=== PATIENT | female | born 1965 | race Caucasian/White ===

== ENCOUNTER 2018-07-18 10:53 | Emergency (ER) | payer MEDICARE, BC ==
--- NOTE | 2018-07-18 12:06 | UC ---
UC General HPI - HPI Summary HPI Summary: SORE THROAT X 5 DAYS AND WORSENING - History of Current Complaint Stated Complaint: RIGHT EAR CONCERN, SORE THROAT Time Seen by Provider: 07/18/18 11:48 Hx Obtained From: Patient Hx Last Menstrual Period: n/a Onset/Duration: Gradual Onset Timing: Constant Associated Signs & Symptoms: Negative: Fever - Allergy/Home Medications Allergies/Adverse Reactions: Allergies Allergy/AdvReac Type Severity Reaction Status Date / Time bee venom protein (honey bee) Allergy Anaphylatic Verified 07/18/18 11:55 Shock canagliflozin AdvReac weakness Verified 07/18/18 11:55 codeine AdvReac Agitation Verified 07/18/18 11:55 morphine AdvReac Agitation Verified 07/18/18 11:55 prednisone AdvReac Agitation Verified 07/18/18 11:55 Home Medications: Home Medications DULoxetine DR CAP* [Cymbalta CAP*] 60 mg PO QPM 07/18/18 [History Confirmed 08/23] Simvastatin [Zocor] 40 mg PO QPM 07/18/18 [History Confirmed 07/18/18] PMH/Surg Hx/FS Hx/Imm Hx Endocrine History: Diabetes, Thyroid Disease, Dyslipidemia Other History Of: Negative For: HIV, Hepatitis B, Hepatitis C, Anticoagulant Therapy - Surgical History Surgical History: Yes Surgery Procedure, Year, and Place: Herniorrhaphy 2009[facility] [place]; Complete Hysterectomy 2007 [place]; C-sections (1989 1987) [place]/ [place]; Thyroidectomy 1989 [place]. Cholecystectomy 01/2016 - Family History Known Family History: Positive: Cardiac Disease, Hypertension, Diabetes - Social History Occupation: Employed Full-time Lives: With Family Alcohol Use: None Substance Use Type: None Smoking Status (MU): Heavy Every Day Tobacco Smoker Type: Cigarettes Amount Used/How Often: 1 PPD Length of Time of Smoking/Using Tobacco: 19 Years Have You Smoked in the Last Year: Yes Household Exposure Type: Cigarettes - Immunization History Most Recent Influenza Vaccination: 7251-2139 Most Recent Tetanus Shot: unsure Vaccination Up to Date: Yes Review of Systems All Other Systems Reviewed And Are Negative: Yes Constitutional: Positive: Negative Skin: Positive: Negative Eyes: Positive: Negative ENT: Positive: Sore Throat Respiratory: Positive: Negative Cardiovascular: Positive: Negative Gastrointestinal: Positive: Negative Genitourinary: Positive: Negative Motor: Positive: Negative Neurovascular: Positive: Negative Musculoskeletal: Positive: Negative Neurological: Positive: Negative Psychological: Positive: Negative Is Patient Immunocompromised?: No Physical Exam Triage Information Reviewed: Yes Appearance: Well-Appearing Vital Signs Reviewed: Yes Eyes: Positive: Conjunctiva Clear ENT: Positive: Pharyngeal erythema, TMs normal, Muffled voice, Uvula midline - BUT RED AND MODERATE SWELLING. NO AIRWAY COMPROMISE.. Negative: Nasal congestion, Nasal drainage, Trismus Neck: Positive: Supple, Nontender, Enlarged Nodes @ - PERITONSILAR Respiratory: Positive: Lungs clear, Normal breath sounds Cardiovascular: Positive: RRR, No Murmur Abdomen Description: Positive: Nontender, No Organomegaly, Soft Bowel Sounds: Positive: Present Musculoskeletal: Positive: ROM Intact Neurological: Positive: Alert Psychological: Positive: Age Appropriate Behavior Skin Exam: Normal Diagnostics - Laboratory Diagnostic Studies Completed/Ordered: RAPID STREP=POSITIVE Course/Dx - Course Course Of Treatment: NO CONCERN FOR PERITONSILAR ABSCESS. UVULITIS ON EXAM PLUS STREP + THUS WILL TX WITH DECADRON X1 AND AUGMENTIN. - Differential Dx - Multi-Symptom Provider Diagnoses: UVULITIS. STREP THROAT Discharge - Sign-Out/Discharge Documenting (check all that apply): Patient Departure All imaging exams completed and their final reports reviewed: No Studies - Discharge Plan Condition: Stable Disposition: HOME Prescriptions: Amoxicillin/Clavulanate TAB* [Augmentin TAB 875*] 875 mg PO BID 10 Days #20 tab Patient Education Materials: Uvulitis (ED), Strep Throat (DC) Referrals: Franci Carr NP [Primary Care Provider] - Additional Instructions: RECHECK IN 3-4 DAYS OR SOONER IF WORSE. - Billing Disposition and Condition Condition: STABLE Disposition: Home
[2018-07-18 12:14] VITALS: BP 122/76
[2018-07-18] MEDS ORDERED: Dexamethasone IV* 4 MG/ML 1 ML (4 MG) PO ONE (12:16)
== END 2018-07-18 12:37 | disposition home or self-care (01) ==
LOC: UCCORT 10:53
DX: K12.2 Cellulitis and abscess of mouth (principal); J02.0 Streptococcal pharyngitis; Z88.8 Allergy status to other drugs, medicaments and biological substances; Z88.5 Allergy status to narcotic agent; E11.9 Type 2 diabetes mellitus without complications; E78.5 Hyperlipidemia, unspecified; F17.210 Nicotine dependence, cigarettes, uncomplicated
CPT/HCPCS: 87651; 99212; G0463; J1100

== ENCOUNTER 2018-10-01 11:59 | Emergency (ER) | payer BC, MEDICARE ==
--- OUTSIDE RECORDS SUMMARY | 2018-10-01 12:10 | XMS REPORT | Continuity of Care Document ---
:1965 External Reference #:[id number] Author Name Amy Underwood Care Team Providers Name Role Phone Angelica Thakkar PA Primary Care Physician Unavailable Payers Type Date Identification Numbers Payment Provider Subscriber Effective: 2018 Policy Number: [id number] Melodie Rodriguez PayID: [id number] [address] [place] [address] Advance Directives Description No Information Available Problems Description No Information Family History Description No Information Available Social History Type Date Description Comments Sex Unknown Marital Status Lives With Occupation Currently Working time study technologist urgent care nurse practitioner Tobacco Use Start: Unknown Heavy tobacco smoker (more than 10 cigarettes/day) Tobacco Use Start: Unknown Never Smoked Cigars Tobacco Use Start: Unknown Never Smoked A Pipe Smokeless Tobacco Never Used Smokeless Tobacco ETOH Use Denies alcohol use Tobacco Use Start: Unknown Heavy tobacco smoker (more than 10 cigarettes/day) Smoking Status Reviewed: 09/12/18 Heavy tobacco smoker (more than 10 cigarettes/day) Allergies, Adverse Reactions, Alerts Date Description Reaction Status Severity Comments 09/12/2018 Prednisone Active 09/12/2018 Morphine Active 09/12/2018 Codeine Active 09/12/2018 Invokana Active Medications Medication Date Status Form Strength Qnty SIG Indications Ordering Provider Diflucan 09/12/ Active Tablets 150mg 14tabs 1 tablet by J38.1 Andrew 2019 mouth daily Ruparelia x14 days , M.D. Meloxicam / Active Tablets 7.5mg Take 1 2 Unknown 0000 Tablets By Mouth Once A Day Benzonatate / Active Capsules 200mg Take One Unknown 0000 Capsule By Mouth Three Times A Day Buspirone HCL / Active Tablets 5mg Take 1 2 Unknown 0000 Tablets By Mouth Two To Three Times A Day as Needed For Anxiety Duloxetine HCL / Active Caps DR 60mg Take One Unknown 0000 Part Capsule By Mouth Every Day Bydureon / Active Pen 2mg Use 1 Unknown 0000 Injection Weekly Tazorac / Active Gel 0.05% Apply To Unknown 0000 Affected Area S Of Left Foot Nightly Levothyroxine / Active Tablets 150mcg Take One Unknown Sodium 0000 Tablet By Mouth Every Day Simvastatin / Active Tablets 40mg Take One Unknown 0000 Tablet By Mouth Every Day Synjardy XR / Active Tablets ER 5-1000mg Take One Unknown 0000 24HR Tablet By Mouth Every Day Immunizations Description No Information Available Vital Signs Date Vital Result Comment 09/12/2018 3:04pm Height 61 inches 5'1" Weight 217.00 lb BP Systolic Sitting 126 mmHg BP Diastolic Sitting 68 mmHg Respiratory Rate 16 /min Pain Level 5 BMI (Body Mass Index) 41.0 kg/m2 Results Description No Information Available Procedures Date Code Description Status 09/12/2018 13426 Fibroptic Laryngoscopy Completed Encounters Description No Information Available Plan of Treatment Future Appointment(s):09/26/2018 2:15 pm - Andrew Delaney M.D. at [facility] AT Xsngwdya34/07/2019 - Andrew Delaney M.D.R49.0 RdrqxxjelL33.1 Polyp of vocal cord and larynxNew Medication:Diflucan 150 mg - 1 tablet by mouth daily x14 daysComments:I'm going to treat her for 2 weeks with an antifungal, and reevaluate her at that time. If the polyp is still erythematous and edematous and redundant laryngoscopy with micro-biopsy and removal of polyp with general [id number] Dysphagia, unspecified
[2018-10-01 12:37] VITALS: BP 105/78
--- NOTE | 2018-10-01 13:27 | UC ---
Lower Extremity/Ankle HPI - HPI Summary HPI Summary: injured left foot and later ankle while playing with her [employer] dogs 4 days ago--has continued pain and throbbing in lateral ankle and foot - History of Current Complaint Chief Complaint: UCTrauma Stated Complaint: LEFT ANKLE INJURY Time Seen by Provider: 10/01/18 13:01 Hx Obtained From: Patient Hx Last Menstrual Period: n/a ?: No Onset/Duration: Sudden Onset, Lasting Days - 4, Still Present Pain Intensity: 9 Pain Scale Used: 0-10 Numeric Aggravating Factor(s): Standing, Ambulation Alleviating Factor(s): Rest, Elevation, OTC Meds Able to Bear Weight: Yes - with pain - Allergies/Home Medications Allergies/Adverse Reactions: Allergies Allergy/AdvReac Type Severity Reaction Status Date / Time bee venom protein (honey bee) Allergy Anaphylatic Verified 10/01/18 12:37 Shock canagliflozin AdvReac weakness Verified 10/01/18 12:37 codeine AdvReac Agitation Verified 10/01/18 12:37 morphine AdvReac Agitation Verified 10/01/18 12:37 prednisone AdvReac Agitation Verified 10/01/18 12:37 PMH/Surg Hx/FS Hx/Imm Hx Previously Healthy: No Endocrine History: Diabetes, Hypothyroidism, Dyslipidemia Psychological History: Depression Other History Of: Negative For: HIV, Hepatitis B, Hepatitis C, Anticoagulant Therapy - Surgical History Surgical History: Yes Surgery Procedure, Year, and Place: Hern[facility]rhaphy 2009[facility] [place]; Complete Hysterectomy 2007 [place]; C-sections (1989 1987) [place]/ [place]; Thyroidectomy 1989 [place]. Cholecystectomy 01/2016 - Family History Known Family History: Positive: Cardiac Disease, Hypertension, Diabetes - Social History Occupation: Employed Full-time Lives: With Family Alcohol Use: None Substance Use Type: None Smoking Status (MU): Heavy Every Day Tobacco Smoker Type: Cigarettes Amount Used/How Often: 1 PPD Length of Time of Smoking/Using Tobacco: 28 years Have You Smoked in the Last Year: Yes Household Exposure Type: Cigarettes Cessation Counseling: Counseled 3+Min - 10 Min - but patient refused NRT - Immunization History Most Recent Influenza Vaccination: 4675-4866 Most Recent Tetanus Shot: unsure Vaccination Up to Date: Yes Review of Systems All Other Systems Reviewed And Are Negative: Yes Constitutional: Positive: Negative Skin: Positive: Negative Eyes: Positive: Negative ENT: Positive: Negative Respiratory: Positive: Negative Cardiovascular: Positive: Negative Gastrointestinal: Positive: Negative Genitourinary: Positive: Negative Motor: Positive: Negative Neurovascular: Positive: Negative Musculoskeletal: Positive: Arthralgia - lateral left foot and ankle pain, Edema Neurological: Positive: Negative Psychological: Positive: Negative Is Patient Immunocompromised?: No Physical Exam Triage Information Reviewed: Yes Appearance: Well-Appearing, No Pain Distress, Obese Vital Signs: Initial Vital Signs Temp 98.6 F 10/01/18 12:33 Pulse 91 10/01/18 12:33 Resp 16 10/01/18 12:33 BP 105/78 10/01/18 12:33 Pulse Ox 99 10/01/18 12:33 Vital Signs Reviewed: Yes Eye Exam: Normal Eyes: Positive: Conjunctiva Clear ENT Exam: Normal ENT: Positive: Normal ENT inspection, Hearing grossly normal. Negative: Trismus , Muffled voice, Hoarse voice Dental Exam: Normal Neck exam: Normal Neck: Positive: Supple, Nontender Respiratory Exam: Normal Respiratory: Positive: Chest non-tender, No respiratory distress, No accessory muscle use Cardiovascular Exam: Normal Cardiovascular: Positive: RRR, Pulses Normal, Brisk Capillary Refill Musculoskeletal Exam: Other Musculoskeletal: Positive: Strength Limited @ - left foot, ROM Limited @ - left foot/ankle Neurological Exam: Normal Neurological: Positive: Alert, Muscle Tone Normal Psychological Exam: Normal Skin Exam: Normal Diagnostics - Radiology No standard instances Radiology Interpretation Completed By: Radiologist - no evidence of fracture Lower Extremity Course/Dx - Course Course Of Treatment: cam boot crutches rest ice elevation, tylenol, ibuprofen, follow with orthopedic MD , nicotine cesasation instructions provided - Differential Dx/Diagnosis Provider Diagnosis: Nicotine dependence with current use, Sprain of ankle, left Discharge - Sign-Out/Discharge Documenting (check all that apply): Patient Departure All imaging exams completed and their final reports reviewed: Yes - Discharge Plan Condition: Stable Disposition: HOME Patient Education Materials: Acetaminophen (By mouth), Ibuprofen (By mouth), How to Stop Smoking (ED), Ankle Sprain (ED), R.I.C.E. Treatment (ED) Forms: *Work Release Referrals: Shabbir Warren MD [Medical Doctor] - 4 Days - Billing Disposition and Condition Condition: STABLE Disposition: Home
== END 2018-10-01 14:06 | disposition home or self-care (01) ==
LOC: UCCORT 11:59
DX: S93.402A Sprain of unspecified ligament of left ankle, initial encounter (principal); I10 Essential (primary) hypertension; F17.210 Nicotine dependence, cigarettes, uncomplicated; E66.9 Obesity, unspecified; Z91.030 Bee allergy status; Z91.048 Other nonmedicinal substance allergy status; Z88.5 Allergy status to narcotic agent; X58.XXXA Exposure to other specified factors, initial encounter; Y93.89 Activity, other specified; Y92.9 Unspecified place or not applicable
CPT/HCPCS: 99213; G0463

== ENCOUNTER 2019-01-15 10:17 | Emergency (ER) | payer MEDICARE ==
--- NOTE | 2019-01-15 11:04 | UC ---
Respiratory Complaint HPI - HPI Summary HPI Summary: Patient is a 53 year old female, who present today to the urgent care with sinus congestion for past 2 weeks. She reports that she was initially thinking that it was her allergies but now she has double up cough productive of greenish mucus and her ears are also bothering her at this time. She denies any fevers, chest pain or shortness of breath. Postnasal drip positive Denies any abdominal pain , nausea or vomiting , diarrhea or constipation. - History of Current Complaint Stated Complaint: SINUS CONGESTION,COUGH Time Seen by Provider: 01/15/19 11:03 Hx Obtained From: Patient Hx Last Menstrual Period: n/a ?: No - Allergies/Home Medications Allergies/Adverse Reactions: Allergies Allergy/AdvReac Type Severity Reaction Status Date / Time bee venom protein (honey bee) Allergy Anaphylatic Verified 01/15/19 11:08 Shock canagliflozin AdvReac weakness Verified 01/15/19 11:08 codeine AdvReac Agitation Verified 01/15/19 11:08 morphine AdvReac Agitation Verified 01/15/19 11:08 prednisone AdvReac Agitation Verified 01/15/19 11:08 PMH/Surg Hx/FS Hx/Imm Hx - Additional Past Medical History Additional PMH: Past medical history: hypertension, depression, shingles, diabetes, thyroid cancer, MRSA Past surgical history: Thyroid surgery, hysterectomy Social history: Smoker, no alcohol or drug use. She works for [employer] at [employer]. Family history: Noncontributory Previously Healthy: Yes Other History Of: Negative For: HIV, Hepatitis B, Hepatitis C, Anticoagulant Therapy - Surgical History Surgical History: Yes Surgery Procedure, Year, and Place: [place] [facility] [place]; Complete Hysterectomy 2007 [place]; C-sections (1989 1987) [place]/ [place]; Thyroidectomy 1989 [place]. Cholecystectomy 01/2016 - Family History Known Family History: Positive: Cardiac Disease, Hypertension, Diabetes - Social History Alcohol Use: None Substance Use Type: None Smoking Status (MU): Heavy Every Day Tobacco Smoker Type: Cigarettes Amount Used/How Often: 1 PPD Length of Time of Smoking/Using Tobacco: 28 years Have You Smoked in the Last Year: Yes Household Exposure Type: Cigarettes - Immunization History Most Recent Influenza Vaccination: [id number] Most Recent Tetanus Shot: unsure Vaccination Up to Date: Yes Review of Systems All Other Systems Reviewed And Are Negative: Yes Constitutional: Positive: Negative Skin: Positive: Negative Eyes: Positive: Negative ENT: Positive: Ear Ache, Nasal Discharge, Sinus Congestion, Sinus Pain/ Tenderness Respiratory: Positive: Cough - Productive of greenish sputum. Negative: Shortness Of Breath Cardiovascular: Positive: Negative. Negative: Chest Pain Gastrointestinal: Positive: Negative Genitourinary: Positive: Negative Motor: Positive: Negative Neurovascular: Positive: Negative Musculoskeletal: Positive: Negative Neurological: Positive: Negative Psychological: Positive: Negative Is Patient Immunocompromised?: No Physical Exam - Summary Physical Exam Summary: Physical Exam: Const: Appears well. No signs of apparent distress present. Alert and oriented x 3. Musculo: Walks with a normal gait. Head/Face: Atraumatic, normocephalic on inspection. Eyes: EOMI and PERRLA in both eyes. Conjunctivae clear. No discharge noted ENT: Hearing normal, red TM erythematous Cobblestoning noted in the posterior pharyngeal wall with mild pharyngeal erythema and no exudates. Uvula is midline No cervical or submandibular lymphadenopathy noted. Respiratory: Respirations are unlabored. Lungs clear to auscultation bilaterally, no wheezing , rhonchi or rales noted . CVS: Regular rate and Rhythm, S1S2 normal , no murmurs identified. Extremities: Peripheral circulation is grossly normal. Pulses 2+ Abdomen : Soft non tender , nondistended , Bowel sounds present . No guarding , rebound tenderness or rigidity noted. Skin: No lesions or rash located on the upper extremities or on the lower extremities. Neuro: Cranial nerves II to XII intact, motor and sensory intact. DTR Intact bilaterally. Mood is normal. Affect is normal. Triage Information Reviewed: Yes Vital Signs Reviewed: Yes Respiratory Course/Dx - Course Course Of Treatment: During the visit today, we discussed the findings and further plan. I will prescribe the medication to the pharmacy . Patient expressed understanding . - Differential Dx/Diagnosis Provider Diagnosis: Sinusitis, Left otitis media Discharge - Sign-Out/Discharge Documenting (check all that apply): Patient Departure All imaging exams completed and their final reports reviewed: No Studies - Discharge Plan Condition: Stable Disposition: HOME Prescriptions: Amoxicillin/Clavulanate TAB* [Augmentin TAB 875*] 875 mg PO BID 14 Days #28 tab Patient Education Materials: Sinusitis (ED) Referrals: Lewis Benavidez MD [Primary Care Provider] - 1 Week Additional Instructions: Please start taking the medication as prescribed to the pharmacy . Follow up with your primary care doctor in 1 week Patients blood pressure slightly high(prehypertensive range) in Urgent care today , plan follow up with PCP for better control Return to Urgent care / ER if symptoms get worse. - Billing Disposition and Condition Condition: STABLE Disposition: Home
[2019-01-15 11:08] VITALS: BP 129/75
== END 2019-01-15 11:28 | disposition home or self-care (01) ==
LOC: UCCORT 10:17
DX: J32.9 Chronic sinusitis, unspecified (principal); H66.92 Otitis media, unspecified, left ear; I10 Essential (primary) hypertension; E11.9 Type 2 diabetes mellitus without complications; Z85.850 Personal history of malignant neoplasm of thyroid; Z86.14 Personal history of Methicillin resistant Staphylococcus aureus infection; F17.210 Nicotine dependence, cigarettes, uncomplicated
CPT/HCPCS: 99212; G0463

== ENCOUNTER 2019-01-30 09:16 | Emergency (ER) | payer MEDICARE ==
[2019-01-30 10:34] VITALS: BP 112/63
--- NOTE | 2019-01-30 10:44 | UC ---
Knee Pain HPI - HPI Summary HPI Summary: 53 yo female with medial right knee pain x 2 weeks knee swollen hurts to bend knee sonam hx knee DJD - History of Current Complaint Chief Complaint: UCLowerExtremity Stated Complaint: RIGHT KNEE PAIN/SWELLING Time Seen by Provider: 01/30/19 10:34 Hx Obtained From: Patient Hx Last Menstrual Period: n/a Onset/Duration: Gradual Onset Severity Initially: Mild Severity Currently: Severe Pain Intensity: 9 Pain Scale Used: 0-10 Numeric Character: Sharp, Aching Aggravating Factor(s): Movement, Weight Bearing Alleviating Factor(s): Rest Associated Signs And Symptoms: Positive: Swelling Able to Bear Weight: Yes Legs: 1 - tender medial joint line - Allergies/Home Medications Allergies/Adverse Reactions: Allergies Allergy/AdvReac Type Severity Reaction Status Date / Time bee venom protein (honey bee) Allergy Anaphylatic Verified 01/30/19 10:26 Shock canagliflozin AdvReac weakness Verified 01/30/19 10:26 codeine AdvReac Agitation Verified 01/30/19 10:26 morphine AdvReac Agitation Verified 01/30/19 10:26 prednisone AdvReac Agitation Verified 01/30/19 10:26 PMH/Surg Hx/FS Hx/Imm Hx Previously Healthy: Yes Endocrine History: Diabetes Cardiovascular History: Hypertension Other History Of: Negative For: HIV, Hepatitis B, Hepatitis C, Anticoagulant Therapy - Surgical History Surgical History: Yes Surgery Procedure, Year, and Place: Herniorrhaphy 2009[facility] [place]; Complete Hysterectomy 2007 [place]; C-sections (1989 1987) [place]/ [place]; Thyroidectomy 1989 [place]. Cholecystectomy 01/2016 - Family History Known Family History: Positive: Cardiac Disease, Hypertension, Diabetes - Social History Alcohol Use: None Substance Use Type: None Smoking Status (MU): Heavy Every Day Tobacco Smoker Type: Cigarettes Amount Used/How Often: 1 PPD Length of Time of Smoking/Using Tobacco: 28 years Have You Smoked in the Last Year: Yes Household Exposure Type: Cigarettes - Immunization History Most Recent Influenza Vaccination: 8321-9885 Most Recent Tetanus Shot: unsure Vaccination Up to Date: Yes Review of Systems All Other Systems Reviewed And Are Negative: Yes Constitutional: Positive: Negative Skin: Positive: Negative Eyes: Positive: Negative ENT: Positive: Negative Respiratory: Positive: Negative Cardiovascular: Positive: Negative Gastrointestinal: Positive: Negative Genitourinary: Positive: Negative Motor: Positive: Negative Neurovascular: Positive: Negative Musculoskeletal: Positive: Arthralgia - right knee Neurological: Positive: Negative Psychological: Positive: Negative Physical Exam Triage Information Reviewed: Yes Appearance: Well-Appearing, No Pain Distress, Well-Nourished, Other: - BMI 41 Vital Signs: Initial Vital Signs Temp 98.1 F 01/30/19 10:28 Pulse 92 01/30/19 10:28 Resp 18 01/30/19 10:28 BP 112/63 01/30/19 10:28 Pulse Ox 96 01/30/19 10:28 Vital Signs Reviewed: Yes Eyes: Positive: Conjunctiva Clear ENT: Positive: Hearing grossly normal. Negative: Nasal congestion, Nasal drainage, Tonsillar swelling, Tonsillar exudate, Muffled voice, Hoarse voice Neck: Positive: Supple Respiratory: Positive: Normal breath sounds, No respiratory distress, No accessory muscle use, Respiratory distress Cardiovascular: Positive: RRR, No Murmur Musculoskeletal: Positive: Other: - unable to fully extend right knee, effusion , tender medial joint line Neurological: Positive: Alert, Other: - distal n/v/i Psychological Exam: Normal Skin Exam: Normal Diagnostics - Radiology No standard instances Radiology Interpretation Completed By: Radiologist Summary of Radiographic Findings: DJD Knee Pain Course/Dx - Differential Dx/Diagnosis Provider Diagnosis: Tear of medial meniscus of right knee, Right knee DJD Discharge - Sign-Out/Discharge Documenting (check all that apply): Patient Departure All imaging exams completed and their final reports reviewed: Yes - Discharge Plan Condition: Stable Disposition: HOME Patient Education Materials: R.I.C.E. Treatment (ED), Knee Immobilizer (ED), Meniscus Tear (ED) Forms: *Work Release Referrals: Shabbir Warren MD [Medical Doctor] - As Soon As Possible - Billing Disposition and Condition Condition: STABLE Disposition: Home
== END 2019-01-30 11:57 | disposition home or self-care (01) ==
LOC: UCCORT 09:16
DX: S83.241A Other tear of medial meniscus, current injury, right knee, initial encounter (principal); M17.11 Unilateral primary osteoarthritis, right knee; E11.9 Type 2 diabetes mellitus without complications; I10 Essential (primary) hypertension; F17.210 Nicotine dependence, cigarettes, uncomplicated; Z88.5 Allergy status to narcotic agent; Z88.8 Allergy status to other drugs, medicaments and biological substances; X58.XXXA Exposure to other specified factors, initial encounter
CPT/HCPCS: 99213; G0463

== ENCOUNTER 2019-03-30 07:08 | Inpatient (IN) | payer MEDICARE ==
--- NOTE | 2019-03-17 20:10 | HP ---
AMENDED REPORT NOW INCLUDES DESIGNATED COSIGNER HISTORY AND PHYSICAL: DATE OF ADMISSION/SURGERY: 03/30/19 DATE OF OFFICE VISIT: 03/17/19 ATTENDING SURGEON: Aliza Shea MD.* (DICTATED BY YOON POLLOCK) PROCEDURE: Right total knee arthroplasty. CHIEF COMPLAINT: Right knee pain. HISTORY OF PRESENT ILLNESS: Ms. Dahl is a 53-year-old female with right knee pain that has been increasing over the last 10 years. The patient reports that she has developed 9/10 daily aching pain in the prepatellar region and medial joint line of her right knee. Her pain is increased with walking even 1 block. She has difficulty stair climbing and prolonged ambulation. In the past, she has tried antiinflammatories, pain medications, brace wear, physical therapy, and steroid injections. The patient reports that her quality of life is low at this point and she would like to proceed with surgery. She does use a cane to ambulate. PAST MEDICAL HISTORY: 1. Hypercholesterolemia. 2. Depression. 3. Anxiety. 4. Type 2 diabetes. PAST SURGICAL HISTORY: 1. Hernia repair x3. 2. Cholecystectomy. 3. Thyroidectomy. 4. Two C-sections. MEDICATIONS: 1. Famotidine 40 mg q.8 hours. 2. Meloxicam 7.5 mg 1 to 2 tabs p.o. once a day. 3. Buspirone HCl 5 mg 1 to 2 tabs p.o. 2 to 3 times a day as needed for anxiety. 4. Duloxetine HCl 60 mg 1 p.o. daily. 5. Bydureon 2 mg use 1 injection weekly. 6. Tazorac 0.05% apply to affected area of left foot nightly. 7. Levothyroxine sodium 150 mcg take 1 tablet p.o. daily. 8. Simvastatin 40 mg 1 p.o. daily. 9. Synjardy XR 01/1000 mg 1 p.o. daily. ALLERGIES: PREDNISONE, MORPHINE, CODEINE, and INVOKANA. FAMILY HISTORY: Positive for diabetes, cardiovascular disease, hypertension, stroke, and rheumatoid arthritis. SOCIAL HISTORY: The patient lives at home with her spouse. She is disabled, but she works part-time at [employer]. She is a smoker. She smokes 1 pack per day x24 years. She denies recreational drugs or alcohol use. She is normally active with swimming and kayaking. She is ambidextrous. REVIEW OF SYSTEMS: General: Negative for fevers, chills, night sweats, unexplained weight loss or gain. No known anesthesia problems. HEENT: Negative for headache, lightheadedness, syncopal episodes, visual changes. Integumentary: Positive for psoriasis on her foot. Negative for abrasions, lesions, or open wounds. Cardiothoracic: Negative for hypertension, chest pain , palpitations, edema. Respiratory: Negative for shortness of breath with exertion, chronic cough, wheezing. GI: Negative for nausea, vomiting, diarrhea , constipation, GERD. : Negative for nocturia, urinary frequency, urgency, history of UTIs, kidney problems. Musculoskeletal: Positive for right knee pain. Positive for herniated disk at C6 and C7. Negative for chronic or intermittent back pain or history of fractures. Neurologic: Positive for anxiety and depression. Negative for paresthesias, numbness, history of seizure , stroke, or poor balance. Endocrine: Positive for diabetes. Positive for thyroid issues. Hematologic: Negative for easy bruising, anemia, bleeding disorders, or history of DVT. ID: Negative for MRSA, hep C, HIV. PHYSICAL EXAMINATION GENERAL: Well-developed, well-nourished 53-year-old female, in no acute distress. Gait is antalgic. Balance is decreased single leg stance. VITAL SIGNS: Height is 61 inches, weight 220 pounds. BP is 122/68, respiratory is 18, temperature is 97.6, pain level is 5. BMI is 41.6. HEENT: Normocephalic, atraumatic. PERRLA. Extraocular movements intact. Throat is clear. NECK: Supple. No palpable lymph nodes. PULMONARY: Lungs are clear to auscultation. No wheezes, rales, or rhonchi. CARDIO: Regular rate and rhythm. S1 and S2 normal. No murmurs, rubs, or gallops. No edema. ABDOMEN: Positive bowel sounds. Soft, nontender. NEUROLOGIC: A and O x3. Cranial nerves II through XII intact. Sensation is intact to light touch. MUSCULOSKELETAL: Right lower extremity, the patient's skin is intact. No abrasions or open wounds. No palpable masses or lymph nodes. Moderate effusion at the knee joint with tenderness along the medial and lateral joint line. She has 10 to 100 degrees of flexion today with extreme pain. She has extensive patellofemoral crepitus with range of motion. No varus or valgus instability. Distally no edema, varicosities, or hyperreflexia. She has 5/5 ankle dorsiflexion and plantarflexion strength. Full sensation to light touch in all nerve distributions and 2+ palpable DP pulse. DIAGNOSTIC STUDIES: Multiple views of the patient's right knee showed severe endstage arthritis with [id number]-[id number] contact in the patellofemoral compartment. There is tricompartmental joint space narrowing, osteophyte formation, subchondral sclerosis. IMPRESSION: Severe right knee osteoarthritis. PLAN: The patient is scheduled to undergo a right total knee arthroplasty with Dr. Shea on 03/30/19. Dr. Shea discussed the risks as well as the benefits and the procedure with the patient and she elected to proceed. She will return to the office 10 days postop for followup and suture removal. She stated that she would like to go to rehab in [place] following discharge from this hospital and at that time she will be I-STOP'd and given a prescription for Percocet for postoperative pain management. YOON SHAH [id number]/[facility] #: [id number] MTDKareen
[~2019-03-30 07:08] MED LIST: Acetaminophen TAB* 325 MG PO ONE; Buffered Lidocaine 1% SYRIN* 1 ML/SYRINGE INTRADERM ONE; DiMENhydriNATE IV* 50 MG/ML VIAL IV PUSH PRN; Famotidine IV* 10 MG/ML 2 ML (20 mg) IV ONE; Gabapentin CAP(*) 300 MG PO ONE; HYDROmorphone INJ1* 1 MG/ML SYRINGE IV PRN; Lactated Ringers 1000 ML Bag* 1,000 ML IV SCH; Levalbuterol 0.63MG/3ML NEB* UNIT OF USE INH ONE; Naloxone* 0.4 MG/ML 1 ML VIAL IV PRN; Ondansetron ODT TAB* 4 MG PO ONE; PROCHLORPERAZINE INJ 5 MG/ML 2 ML VIAL IV PRN; Scopolamine 1.5 mg* PATCH TRANSDERM PRN; Tranexamic Acid 1,000 MG in NS 0.9% 50 ML* (outpatient use) IV SCH; celeCOXIB CAP* 200 MG PO ONE; fentaNYL* 50 MCG/ML 2 ML VIAL (100 MCG VIAL) IV PRN
--- OUTSIDE RECORDS SUMMARY | 2019-03-30 07:11 | XMS REPORT | Continuity of Care Document ---
:1965 External Reference #:[id number] Author Name YOON Garcia Address [address], [place] [address] Care Team Providers Name Role Phone Lewis Benavidez MD Primary Care Physician Unavailable Payers Date Identification Numbers Payment Provider Subscriber Effective: 2018 Policy Number: [id number] [facility] Melodie Dahl PayID: [id number] [address] [place] [address] Problems Active Problems Provider Date Localized, primary osteoarthritis Aliza Shea M.D. Onset: 02/13/2019 Family History Date Family Member(s) Observation Comments General No Current Problems Social History Type Date Description Comments Sex Unknown Marital Status Lives With Occupation Currently Working automotive parts counter assistant certified caregiver Tobacco Use Start: Unknown Heavy tobacco smoker (more than 10 cigarettes/day) Tobacco Use Start: Unknown Never Smoked Cigars Tobacco Use Start: Unknown Never Smoked A Pipe Smokeless Tobacco Never Used Smokeless Tobacco ETOH Use Denies alcohol use Tobacco Use Start: Unknown Heavy tobacco smoker (more than 10 cigarettes/day) Recreational Drug Use Denies Drug Use Smoking Status Reviewed: 02/13/19 Heavy tobacco smoker (more than 10 cigarettes/day) Allergies, Adverse Reactions, Alerts Active Allergies Reaction Severity Comments Date Prednisone 09/12/2018 Morphine 09/12/2018 Codeine 09/12/2018 Invokana 09/12/2018 Medications Active Medications SIG Qnty Indications Ordering Date Provider Famotidine 40 mg q12H 60tabs R13.10 Andrew 09/26/2018 40mg Tablets Bee Delaney Meloxicam Take 1- 2 Tablets Unknown 7.5mg Tablets By Mouth Once A Day Buspirone HCL Take 1 -2 Tablets Unknown 5mg Tablets By Mouth Two To Three Times A Day as Needed For Anxiety Duloxetine HCL Take One Capsule Unknown 60mg Caps By Mouth Every DR Part Day Bydureon Use 1 Injection Unknown 2mg Pen Weekly Tazorac Apply To Affected Unknown 0.05% Gel Area S Of Left Foot Nightly Levothyroxine Sodium Take One Tablet Unknown By Mouth Every 150mcg Tablets Day Simvastatin Take One Tablet Unknown 40mg Tablets By Mouth Every Day Synjardy XR Take One Tablet Unknown 5-1000mg By Mouth Every Tablets ER 24HR Day History Medications Diflucan 1 tablet by 14tabs J38.1 Andrew 09/12/2018 - 150mg mouth daily x14 Bee Delaney 01/17/2019 Tablets days Benzonatate Take One Capsule Unknown - 200mg By Mouth Three 01/11/2019 Capsules Times A Day as needed Vital Signs Date Vital Result Comment 02/13/2019 2:18pm Height 61 inches Weight 218.00 lb Heart Rate 95 /min BP Systolic 118 mmHg BP Diastolic 58 mmHg Body Temperature 97.8 F Pain Level 9 BMI (Body Mass Index) 41.2 kg/m2 01/31/2019 10:46am Height 61 inches 5'1" Weight 219.00 lb BP Systolic Sitting 118 mmHg BP Diastolic Sitting 64 mmHg Respiratory Rate 16 /min Pain Level 9 with standing BMI (Body Mass Index) 41.4 kg/m2 09/26/2018 2:23pm Height 61 inches 5'1" Heart Rate 96 /min BP Systolic Sitting 128 mmHg BP Diastolic Sitting 82 mmHg Respiratory Rate 16 /min Pain Level 5 O2 % BldC Oximetry 95 % 09/12/2018 3:04pm Height 61 inches 5'1" Weight 217.00 lb BP Systolic Sitting 126 mmHg BP Diastolic Sitting 68 mmHg Respiratory Rate 16 /min Pain Level 5 BMI (Body Mass Index) 41.0 kg/m2 Results Test Date Facility Test Result H/L Range Note Xray 02/13/2019 [facility] Knee Right 1-2 VWS <pending> [address] [place] [address] [phone] Procedures Date Code Description Status 09/26/2018 25551 Fibroptic Laryngoscopy Completed 09/12/2018 04473 Fibroptic Laryngoscopy Completed Encounters Type Date Location Provider Dx Diagnosis Office Visit 02/13/2019 [facility] Aliza Shea, M17.11 Unilateral primary 2:00p [facility] osteoarthritis, right knee M25.461 Effusion, right knee M25.561 Pain in right knee Office Visit 01/31/2019 Orthopedic Shabbir Saez M17.11 Unilateral primary 10:30a [facility] Matias Warren MD osteoarthritis, AT [place] right knee Office Visit 09/26/2018 [facility] R49.0 Dysphonia 2:15p [facility]Colten M.D. R13.10 Dysphagia, unspecified Office Visit 09/12/2018 2:45p [facility] R49.0 [facility] of vocal cord and larynx R13.10 Dysphagia, unspecified Plan of Treatment Future Appointment(s):03/30/2019 8:00 am - Fredi Albrecht PA-C at [facility]03/30/2019 8:00 am - JAMIA Gasca at [facility]03/30/2019 8:00 am - Aliza Shea M.D. at [facility]03/17/2019 2:30 pm - Aliza Shea M.D. at [facility]02/13/2019 - Aliza Shea M.D.M17.11 Unilateral primary osteoarthritis, right kneeFollow up:Follow up: 7-10 days before napvjmzP32.461 Effusion, right kneeM25.561 Pain in right knee
--- OUTSIDE RECORDS SUMMARY | 2019-03-30 07:11 | XMS REPORT | Continuity of Care Document ---
:1965 External Reference #:[id number] Author Name Lesia Salgado Care Team Providers Name Role Phone Lewis Benavidze MD Primary Care Physician Unavailable Payers Date Identification Numbers Payment Provider Subscriber Effective: 2018 Policy Number: [id number] [employer] Melodie Dahl PayID: [id number] [address] [place] [address] Problems Active Problems Provider Date Localized, primary osteoarthritis Aliza Shea M.D. 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 Tobacco Use Start: Unknown Heavy tobacco smoker (more than 10 cigarettes/day) Tobacco Use Start: Unknown Never Smoked Cigars Tobacco Use Start: Unknown Never Smoked A Pipe Smokeless Tobacco Never Used Smokeless Tobacco ETOH Use Denies alcohol use Tobacco Use Start: Unknown Heavy tobacco smoker (more than 10 cigarettes/day) Recreational Drug Use Denies Drug Use Smoking Status Reviewed: 03/17/19 Heavy tobacco smoker (more than 10 cigarettes/day) [...] Day History Medications Diflucan 1 tablet by ondina J38.1 Andrew 09/12/2018 - 150mg mouth daily x14 Bee Delaney 01/17/2019 Tablets days Benzonatate Take One Capsule Unknown - 200mg By Mouth Three 01/11/2019 Capsules Times A Day as needed Vital Signs Date Vital Result Comment 03/17/2019 2:37pm Height 61 inches 5'1" Weight 220.00 lb BP Systolic 122 mmHg BP Diastolic 68 mmHg Respiratory Rate 18 /min Body Temperature 97.6 F Pain Level 5 BMI (Body Mass Index) 41.6 kg/m2 02/13/2019 2:18pm Height 61 inches Weight 218.00 [...] Test Result H/L Range Note Xray 02/13/2019 [facility] Knee Right 1-2 VWS <pending> [address] [place], [place] [id number] [phone] Procedures Date Code Description Status 09/26/2018 35573 Fibroptic Laryngoscopy Completed 09/12/2018 80279 Fibroptic Laryngoscopy Completed Encounters Type Date Location Provider Dx Diagnosis Office Visit 02/13/2019 Orthopedic Aliza Shea M17.11 Unilateral primary 2:00p [facility] osteoarthritis, right knee M25.461 Effusion, right knee M25.561 Pain in right knee Office Visit 01/31/2019 Orthopedic Shabbir Saez M17.11 Unilateral primary 10:30a [facility] Matias Warren MD osteoarthritis, AT [place] right knee Office Visit 09/26/2018 [facility] R49.0 Dysphonia 2:15p [facility] Dysphagia, unspecified Office Visit 09/12/2018 2:45p [facility] Delaney R49.0 [facility] J[facility].1 Polyp of vocal cord and larynx R13.10 Dysphagia, unspecified Plan of Treatment Future Appointment(s):04/10/2019 10:15 am - Aliza Shea M.D. at [facility]03/30/2019 10:00 am - Fredi Albrecht PA-C at [facility]03/30/2019 10:00 am - JAMIA Gasca at [facility]03/30/2019 10:00 am - Aliza Shea M.D. at [facility]03/17/2019 - Aliza Shea M.D.M17.11 Unilateral primary osteoarthritis, right kneeFollow up:10-14 days post-opM25.461 Effusion, right kneeM25.561 Pain in right knee
[2019-03-30] MEDS ORDERED: Ondansetron ODT TAB* 4 MG ONE (07:37)
[2019-03-30] MEDS ORDERED: Buffered Lidocaine 1% SYRIN* 1 ML/SYRINGE INTRADERM ONE (07:38)
[2019-03-30] MEDS ORDERED: celeCOXIB CAP* 200 MG ONE (07:38)
[2019-03-30] MEDS ORDERED: ceFAZolin 2 GM in NS PREMIX(*) 2 GM/100 ML BAG IVPB ONE (07:38)
[2019-03-30] MEDS ORDERED: Famotidine IV* 10 MG/ML 2 ML (20 mg) ONE (07:38)
[2019-03-30] MEDS ORDERED: Levalbuterol 0.63MG/3ML NEB* UNIT OF USE INH ONE (07:38)
[2019-03-30] MEDS ORDERED: Acetaminophen TAB* 325 MG ONE (07:38)
[2019-03-30] MEDS ORDERED: Gabapentin CAP(*) 400 MG PO ONE (07:52)
[2019-03-30] MEDS ORDERED: Gabapentin CAP(*) 300 MG ONE (07:53)
[2019-03-30] MEDS ORDERED: fentaNYL* 50 MCG/ML 2 ML VIAL (100 MCG VIAL) ONE (08:12)
[2019-03-30] MEDS ORDERED: KETAMINE HCL* 50 MG/ML 10 ML VIAL ONE (08:13)
[2019-03-30] MEDS ORDERED: Midazolam* 1 MG/ML 5 ML VIAL (5 MG) ONE ×2 (08:13→08:39)
[2019-03-30] MEDS ORDERED: Mineral Oil Sterile, TOPICAL* 25 ML BTL ONE (09:18)
[2019-03-30] MEDS ORDERED: ROPIVACAINE 5 MG/ML 30 ML BTL (0.5%) ONE (09:19)
[2019-03-30] MEDS ORDERED: Insulin REGULAR(*) 1 UNITS UNIT ONE (10:59)
[2019-03-30] MEDS ORDERED: Lidocaine 2% PF * 5 ML VIAL ONE (12:47)
[2019-03-30] MEDS ORDERED: Phenylephrine 10 MG/ML VIAL* 1 ML VIAL ONE (12:47)
[2019-03-30] MEDS ORDERED: Bupivacaine 0.5% SDV PF* 30ML VIAL ONE (12:47)
[2019-03-30] MEDS ORDERED: Bupivacaine 0.25% EPI 200,000* 30 ML SDV ONE (12:47)
[2019-03-30] MEDS ORDERED: oxyCODONE TAB* 5 MG TAB PO PRN (13:05)
[2019-03-30] MEDS ORDERED: Acetaminophen TAB* 325 MG PO PRN ×2 (13:05→14:33)
[2019-03-30] MEDS ORDERED: Magnesium Hydroxide LIQ* 30 ML UDC PO PRN (13:05)
[2019-03-30] MEDS ORDERED: Polyethylene Glycol 3350* 17 GM PACKET PO PRN (13:05)
[2019-03-30] MEDS ORDERED: oxyCODONE/Acetamin 5/325 MG* TAB PO PRN ×2 (13:05)
[2019-03-30] MEDS ORDERED: diPHENhydraMINE IV* 50 MG/ML 1 ml VIAL (BENADRYL) IV PRN (13:05)
[2019-03-30] MEDS ORDERED: Morphine 4 MG/ML VIAL (1 ml) 4 MG/ML VIAL IV PRN ×2 (13:05→14:33)
[2019-03-30] MEDS ORDERED: Bisacodyl SUPP* 10 MG SUPP PR PRN (13:05)
[2019-03-30] MEDS ORDERED: Dextrose 50% Syringe 50 ML* 25 GM/50 ML SYRINGE IV PUSH PRN (14:27)
[2019-03-30] MEDS: Lactated Ringers 1000 ML Bag* 1,000 ML IV SCH (14:35)
[2019-03-30] MEDS ORDERED: Dextrose 50% VIAL 50 ml IV PUSH PRN (14:42)
--- NOTE | 2019-03-30 14:56 | PN ---
Progress Note - Progress Note Date of Service: 03/30/19 Note: Patient seen at bedside,feeling well, just back from PACU s/p Right total knee arthroplasty. She denies pain, block still working. Has flicker of motion of the Right great toe, still unable to dorsiflex the right ankle. Has sensation to light touch. toes and dorsal foot. Dressing dry. 2+ pedal pulse.
[2019-03-30] MEDS ORDERED: EMPAGLIFLOZIN PO SCH (17:00)
[2019-03-30] MEDS ORDERED: METFORMIN HCL PO SCH (17:00)
[2019-03-30] MEDS: oxyCODONE/Acetamin 5/325 MG* TAB PO PRN (17:01)
[2019-03-30] MEDS: Insulin LISPRO* 1 UNITS UNIT SUBCUT SCH ×2 (17:59→21:06)
[2019-03-30] MEDS: ceFAZolin 1 GM ADVAN(*) 1 GM in NS 0.9% 50 ML* 50 ML IVPB SCH (17:59)
[2019-03-30] MEDS: Ondansetron INJ* 2 MG/ML VIAL IV PRN (18:00)
--- NOTE | 2019-03-30 18:29 | OP ---
Operative Report - Blank - Operative Report Date of Operation: 03/30/19 Note: ADEN PEDERSEN 1965 Date of Surgery: 03/30/19 Aliza Shea MD Meter Reader: Raymond NETTLES did help throughout the procedure with preparation of the knee, wound retraction, manipulation of the knee, and wound closure. Anesthesiologist: Kuldip Faith MD Anesthesia Type: Spinal Preoperative Diagnosis: Right severe degenerative osteoarthritis of the knee Postoperative Diagnosis: As above Procedure Performed: Right Total Knee Arthroplasty with Navio System Tourniquet time: 67 minutes Complications: None Specimen: Bone and cartilage from the right knee joint sent to pathology. Hardware Used: Cemented [employer] total knee hardware was used - For the femur a size 4 right narrow oxinium legion posterior stabilized femoral component, for the tibia a size 3 right kobi II tibial baseplate, for the insert a size 11 mm 3-4 posterior stabilized articular polyethylene insert, and for the patella a size 29 3-peg all poly patella. Brief History/Indication: ADEN PEDERSEN was known in clinic and had a history of severe right knee pain and swelling. She failed conservative treatment with anti -inflammatories, pain pills, intra-articular injections and physical therapy. She elected to undergo right total knee arthroplasty due to continued pain and decreased quality of life. Radiographs showed severe end stage osteoarthritis of the knee with bone on bone contact. Informed consent was obtained from the patient. She understood the risks of surgery included but were not limited to: bleeding, infection, damage to nearby structures, intraoperative fracture, nerve palsy, failure of the hardware, early loosening, knee stiffness or loss of motion, anesthesia complications, stroke, heart attack, blood clot and . She wished to proceed. Intra-Operative Findings: Intraoperatively the patient was noted to have severe loss of cartilage in all 3 compartments of the knee. Description of the Procedure: ADEN PEDERSEN was identified in the preanesthesia unit. Her right knee was marked as the correct operative side. Informed consent was signed and placed in the chart. The patient was taken to the operating room and placed under anesthesia without complication. A howard catheter was placed. A tourniquet was placed on the right thigh. The right lower extremity was prepped and draped in the usual sterile fashion. Preoperative time-out was made to correctly identify the patient, side and site. Appropriate intraoperative antibiotics were given within one hour of incision. Tourniquet was inflated. A midline incision was made and carried sharply down to the extensor mechanism. A new 10 blade was used to make a standard medial parapatellar arthrotomy. The patella was subluxed laterally. Electrocautery was used to dissect soft tissue off the superomedial tibia to the midsagittal plane. The knee was flexed up. The anterior horn of the lateral meniscus and the ACL/PCL were sharply incised. The femoral and tibial checkpoint screws were placed. Two 4-0 pins were placed in the femur and two were placed in the tibial bone. The arrays were secured to the pins. The [employer] system was used to enter the checkpoints for the mapping of the knee. The independenceIT robotic triny was used to make the distal femoral cuts. The independenceIT system was used to make the pin sites for the size 4 multi-cutting jig and it was placed on the distal femur. The size 4 multi-cutting jig was pinned on the distal femur. The oscillating saw was used to make the appropriate 4 chamfer cuts. The extramedullary tibial cutting guide was pinned on the proximal tibia using the independenceIT system alignment tools. The oscillating saw was used to make the proximal tibial cut perpendicular to the mechanical axis of the tibia. The bone was carefully removed. The knee was brought out into full extension. The spacer block was placed and had excellent fit with the knee in full extension. The medial and lateral ligaments were well balanced. The flexion and extension gaps were well balanced. The knee was flexed up. Lamina data designer was placed both medially and laterally. Any remaining meniscus was removed with electrocautery. Curved osteotome was used to remove any posterior osteophytes. The tibial tray and drop leslie were placed and confirmed a satisfactory tibial cut. The size 4 right narrow femoral trial was impacted onto the distal femur. This trial had excellent fit and stability. The box for the posterior stabilized implant was prepared using a box cut osteotome and a reamer. Next a tibial tray trial and 9 mm insert trial was placed. The knee was taken through a range of motion and had full extension to 130 degrees of flexion. Patellofemoral tracking was satisfactory. The patella was inverted and sized to a size 29. Three peg holes were drilled through the size 29 drill guide. The trial patella was placed and the knee was taken through a range of motion. There was satisfactory patellofemoral tracking. Final checkpoints and range of motion was logged into the navio system. All trials were removed. The tibia was subluxed anteriorly and sized to a size 3. The proximal tibial was prepared with a size 3 keel punch. All bony cut surfaces were irrigated with sterile saline and dried. The checkpoint screws were removed. The four pins and the arrays were removed. Final implants were cemented into place starting with the tibia, followed by the femur, and last the patella. A 9 mm insert trial was placed and the knee was brought into full extension. Tourniquet was turned down and the knee was copiously irrigated with sterile saline. Electrocautery was used to obtain meticulous hemostasis. Once the cement had fully cured, the insert trial was removed. Any excess cement was removed from around the hardware and capsule. Final insert chosen was a 11 mm posterior stabilized Kobi II articular insert size 3-4. Stability of the insert was checked and noted to be stable. The extensor mechanism was closed using number 1 vicryls. The rest of the incision was closed in a layered fashion using 0 and 2-0 vicryls. The skin was closed using 3-0 nylon suture. Sterile xeroform, 4x4s and webril were used to cover the incision. Christ wrap and cold pack were used to cover the dressings. The patients anesthesia was reversed without difficulty. She was taken to the PACU in stable condition. Intended weight-bearing will be as tolerated.
[2019-03-30] MEDS ORDERED: HYDROmorphone INJ1* 1 MG/ML SYRINGE ONE (18:47)
[2019-03-30] MEDS: metFORMIN* 1,000 MG TAB PO SCH (20:34)
[2019-03-30] MEDS: Apixaban* 2.5 MG TAB PO SCH (21:03)
[2019-03-30] MEDS: Atorvastatin* 20 MG TAB PO SCH (21:04)
[2019-03-30] MEDS: busPIRone TAB* 5 MG PO SCH (21:04)
[2019-03-30] MEDS: Docusate CAP* 100 MG PO SCH (21:04)
[2019-03-30] MEDS: DULoxetine DR CAP* 60 MG CAP.DR PO SCH (21:04)
[2019-03-30] MEDS: Cyclobenzaprine TAB* 10 MG PO PRN (21:05)
[2019-03-30] MEDS: oxyCODONE TAB* 5 MG TAB PO PRN (21:05)
--- NOTE | 2019-03-30 21:06 | CONS ---
CC: Dr. Lewis Benavidez * CONSULTATION REPORT: DATE OF CONSULT: 03/30/19 TIME OF EVALUATION: 2:30 p.m. PRIMARY CARE PROVIDER: Dr. Lewis Benavidez. REASON FOR CONSULT: Comanagement of comorbidities. HISTORY OF PRESENT ILLNESS: Ms. Dahl is a 54-year-old lady with a past medical history of sinusitis, COPD, type 2 diabetes, hypothyroidism, hyperlipidemia, GERD, morbid obesity with a BMI of 40, right knee arthritis, who presented to Dr. Shea's office with complaints of progressive right knee pain. She failed conservative management, and she was admitted on 03/30/19 and underwent a right total knee arthroplasty. The hospitalist service was consulted to manage her comorbidities. The patient denies any complaints at this time, but states that her right knee is still numb from the surgery. She denies chest pain, palpitation, shortness of breath, nausea, vomiting, diarrhea or urinary complaints. PAST MEDICAL HISTORY: 1. Sinusitis. 2. COPD. 3. Type 2 diabetes. 4. Hypothyroidism. 5. Hyperlipidemia. 6. GERD. 7. Right knee osteoarthritis. 8. Morbid obesity. 9. Obstructive sleep apnea. The patient states that she has obstructive sleep apnea and uses CPAP, but she lost 100 pounds, and she was then told that she did not need it anymore. PAST SURGICAL HISTORY: 1. Status post hernia repair x3. 2. Status post cholecystectomy. 3. Status post thyroidectomy. 4. Status post x2. MEDICATIONS: 1. Acetaminophen 1000 mg p.o. q.6 hours p.r.n. pain and fever. 2. Buspirone 5 mg p.o. b.i.d. 3. Duloxetine DR 60 mg p.o. at 6 p.m. 4. Empagliflozin/metformin 01/1000 mg p.o. b.i.d. 5. Exenatide 2 mg subcutaneously weekly. 6. Levothyroxine 125 mcg p.o. in the morning. 7. Meloxicam 7.5 mg 1 to 2 tablets p.o. daily. 8. Simvastatin 40 mg p.o. at 6 p.m. 9. Anoro 62.5/25 one inhaled q.a.m. ALLERGIES: BEE VENOM, CANAGLIFLOZIN, CODEINE, MORPHINE, PREDNISONE. FAMILY HISTORY: Positive for diabetes, hypertension, stroke, rheumatoid arthritis. SOCIAL HISTORY: The patient has been a smoker of a pack per day for 24 years. She denies alcohol or drug use. Surrogate decision maker is her , Jeff Rodriguez, phone number is [phone]. REVIEW OF SYSTEMS: A 14-point review of systems was performed and all the pertinent negative and positive findings are in the HPI. PHYSICAL EXAM: Vital Signs: Temperature 97.5, heart rate is 75, respiratory rate is 18, oxygen saturation is 97% on 2 L nasal cannula. Blood pressure is 112/62. General: The patient is a morbidly obese lady lying in bed, in no acute distress. HEENT: Pupils are equal. Moist mucous membranes. CVS: Normal S1, S2. Regular rate and rhythm. Chest: Breath sounds present bilaterally with no added sounds, diminished. Abdomen is morbidly obese. Bowel sounds present. Extremities: The patient has a cryounit to her right lower extremity. Good capillary refill to both lower extremities. The sensation is returning to her right lower extremity. Neuro: She is alert and oriented x3. Able to move all 4 extremities. ASSESSMENT AND PLAN: Ms. Dahl is a 54-year-old lady with a past medical history of chronic obstructive pulmonary disease, tobacco abuse, type 2 diabetes , hypothyroidism, hyperlipidemia, gastroesophageal reflux disease, osteoarthritis, morbid obesity with a BMI of 40, who presented for an elective right total knee arthroplasty. 1. Status post right total knee arthroplasty. Management as per Orthopedics. 2. Type 2 diabetes. The patient will be continued on metformin, and she will have a lispro sliding scale. 3. Chronic obstructive pulmonary disease is stable at this time. The patient will be continued on bronchodilators. 4. Hyperlipidemia. We will continue atorvastatin. 5. DVT prophylaxis will be with Eliquis as per Ortho. 6. History of obstructive sleep apnea. The patient states that she does not require CPAP anymore after losing 100 pounds, but her BMI is still 40. So, we are going to monitor her pulse oximetry overnight. 7. Code status is full. TIME SPENT: Approximately 45 minutes was spent on patient interview, medical records review, and physical examination to complete this admission, more than half of this time was spent [id number] with the patient and coordination of care. [id number]/[facility] #: [id number] [facility] CENTERKareen
[2019-03-30] MEDS: Magnesium Hydroxide LIQ* 30 ML UDC PO SCH (21:07)
[2019-03-30] MEDS: HYDROmorphone INJ1* 1 MG/ML SYRINGE IV SLOW PU PRN (22:59)
[2019-03-31] MEDS: Lactated Ringers 1000 ML Bag* 1,000 ML IV SCH (00:31)
[2019-03-31] MEDS: HYDROmorphone INJ1* 1 MG/ML SYRINGE IV SLOW PU PRN ×2 (02:31→09:46)
[2019-03-31] MEDS: ceFAZolin 1 GM ADVAN(*) 1 GM in NS 0.9% 50 ML* 50 ML IVPB SCH ×2 (02:35→09:46)
[2019-03-31] MEDS: oxyCODONE TAB* 5 MG TAB PO PRN ×5 (03:42→20:48)
[2019-03-31] MEDS: Levothyroxine TAB* 175 MCG TAB PO SCH (06:18)
[2019-03-31] MEDS: Cyclobenzaprine TAB* 10 MG PO PRN ×2 (06:18→15:54)
[2019-03-31 06:44] LABS: Hematocrit 49 % (35-47); Hemoglobin 16.6 g/dL (12.0-16.0); Mean Platelet Volume 8.5 fL (7.4-10.4); Platelet Count 230 10^3/uL (150-450)
[2019-03-31 07:06] LABS: BUN/Creatinine Ratio 15.6 (8-20); Calcium 8.8 mg/dL (8.6-10.3); EGFR African American 117.9 (>60); EGFR Non-African American 97.4 (>60); Potassium 4.2 mmol/L (3.5-5.0)
[2019-03-31] MEDS: PTO: Umeclidin/Vilant 62.5 MDI 62.5/25 mcg 14 INH ELLIPTA DEVICE INH SCH (08:08)
[2019-03-31] MEDS: Vitamin THERAPEUTIC TAB PO SCH (08:11)
[2019-03-31] MEDS: busPIRone TAB* 5 MG PO SCH ×2 (08:11→20:48)
[2019-03-31] MEDS: Magnesium Hydroxide LIQ* 30 ML UDC PO SCH ×2 (08:11→20:31)
[2019-03-31] MEDS: Docusate CAP* 100 MG PO SCH ×2 (08:11→20:31)
[2019-03-31] MEDS: Apixaban* 2.5 MG TAB PO SCH ×2 (08:11→20:31)
[2019-03-31] MEDS: Morphine TAB Extended Release (*) 15 MG TAB.ER PO SCH ×2 (08:12→20:30)
[2019-03-31] MEDS: Ondansetron INJ* 2 MG/ML VIAL IV PRN (08:18)
[2019-03-31] MEDS: metFORMIN* 1,000 MG TAB PO SCH (08:20)
[2019-03-31] MEDS ORDERED: NF:Umeclidin/Vilant 62.5 MDI 62.5/25 mcg 14 INH ELLIPTA DEVICE INH SCH (09:00)
[2019-03-31] MEDS ORDERED: NFT: Umeclidin/Vilant 62.5 MDI 62.5/25 mcg 14 INH ELLIPTA DEVICE INH SCH (09:00)
[2019-03-31] MEDS: Insulin LISPRO* 1 UNITS UNIT SUBCUT SCH ×4 (09:46→20:49)
--- NOTE | 2019-03-31 10:41 | PN ---
Progress Note - Progress Note Date of Service: 03/31/19 SOAP: Subjective: []patient seen OOB in chair. Nauseated, and wiped out. Vomited this am. Denies, SOB, CP or palpitations. Slightly dizzy, feels it is from pain medications. Objective: [] Vital Signs Temp 98.2 F 03/31/19 08:38 Pulse 104 03/31/19 08:38 Resp 16 03/31/19 09:46 BP 151/70 03/31/19 08:38 Pulse Ox 98 03/31/19 08:38 Intake & Output 03/30/19 03/31/19 03/31/19 18:59 06:59 18:59 Intake Total 1880 Output Total 1900 1550 500 Balance -1900 330 -500 Weight 216 lb 3.2 oz Intake: IV Fluids 1000 ABX - CEFAZOLIN 50 LR 950 Oral 880 Output: Urine 500 [place] 1900 1550 Laboratory Results - last 24 hr 03/30/19 03/30/19 03/30/19 13:06 17:03 20:14 Hgb Hct Plt Count MPV Sodium Potassium Chloride Carbon Dioxide Anion Gap BUN Creatinine Est GFR ( Amer) Est GFR (Non-Af Amer) BUN/Creatinine Ratio Glucose POC Glucose (mg/dL) 105 H 137 H 133 H Calcium 03/31/19 03/31/19 03/31/19 06:18 06:18 08:16 Hgb 16.6 H Hct 49 H Plt Count 230 MPV 8.5 Sodium 134 L Potassium 4.2 Chloride 98 L Carbon Dioxide 27 Anion Gap 9 BUN 10 Creatinine 0.64 Est GFR ( Amer) 117.9 Est GFR (Non-Af Amer) 97.4 BUN/Creatinine Ratio 15.6 Glucose 186 H POC Glucose (mg/dL) 172 H Calcium 8.8 Right knee dressing clean and dry +Df right ankle sensation intact distally calf NT and soft Assessment: []s/p Navio assisted RTK POD #1 Plan: []WBAT RLE with PT/OT Zofran given Eliquis for DVT prophylaxis Home when medically stable- hope for Wednesday discharge with [facility]
[2019-03-31] MEDS ORDERED: Morphine TAB Extended Release (*) 15 MG TAB.ER PO ONE (12:00)
--- NOTE | 2019-03-31 12:53 | PN ---
Subjective Date of Service: 03/31/19 Interval History: Significant pain day and night, willing to keep analgesic doses the same in anticipation of gradual healing and pain reduction. No BM since admission. No SOB. Objective Active Medications: Acetaminophen (Tylenol Tab*) 650 mg PO Q8H PRN PRN Reason: PAIN - MILD Apixaban (Eliquis*) 2.5 mg PO BID [facility] Last Admin: 03/31/19 08:11 Dose: 2.5 mg Atorvastatin Calcium (Lipitor*) 40 mg PO 1800 [facility] Last Admin: 03/30/19 21:04 Dose: Not Given Bisacodyl (Dulcolax Supp*) 10 mg [place] DAILY PRN PRN Reason: constipation Buspirone HCl (Buspar Tab*) 5 mg PO BID [facility] Last Admin: 03/31/19 08:11 Dose: 5 mg Cyclobenzaprine HCl (Flexeril Tab*) 5 mg PO TID PRN PRN Reason: SPASMS Last Admin: 03/31/19 06:18 Dose: 5 mg Dextrose (Dextrose 50% Vial 50 Ml*) 12.5 ml IV PUSH .FOR FS < 60 - SS PRN PRN Reason: FS < 60 Diphenhydramine HCl (Benadryl Iv*) 25 mg IV Q6H PRN PRN Reason: itching Docusate Sodium (Colace Cap*) 100 mg PO BID [facility] Last Admin: 03/31/19 08:11 Dose: 100 mg Duloxetine HCl (Cymbalta Cap*) 60 mg PO 1800 [facility] Last Admin: 03/30/19 21:04 Dose: 60 mg Hydromorphone HCl (Dilaudid Inj1s*) 1 mg IV SLOW PU Q2H PRN PRN Reason: PAIN - SEVERE Last Admin: 03/31/19 09:46 Dose: 1 mg Lactated Ringer's (Lactated Ringers 1000 Ml Bag*) 1,000 mls @ 100 mls/hr IV PER RATE [facility] Last Admin: 03/31/19 00:31 Dose: 100 mls/hr Insulin Human Lispro (Humalog*) 0 units SUBCUT ACHS [facility]; Protocol Last Admin: 03/31/19 09:46 Dose: 3 unit Lactulose (Lactulose*) 30 ml PO Q6H PRN PRN Reason: constipation Levothyroxine Sodium (Synthroid Tab*) 175 mcg PO DAILY@0600 [facility] Last Admin: 03/31/19 06:18 Dose: 175 mcg Magnesium Hydroxide (Milk Of Magnesia Liq*) 30 ml PO BID [facility] Last Admin: 03/31/19 08:11 Dose: 30 ml Magnesium Hydroxide (Milk Of Magnesia Liq*) 30 ml PO Q6H PRN PRN Reason: constipation Morphine Sulfate (Ms Contin(*)) 15 mg PO Q12H [facility] Last Admin: 03/31/19 08:12 Dose: 15 mg Multivitamins (Theragran Tab*) 1 tab PO DAILY [facility] Last Admin: 03/31/19 08:11 Dose: 1 tab Pto:(Exenatide Microspheres [ Bydureon] 2 Mg) Pen 2 mg SC Q7D [facility] Ondansetron HCl (Zofran Inj*) 4 mg IV Q6H PRN PRN Reason: nausea Last Admin: 03/31/19 08:18 Dose: 4 mg Oxycodone HCl (Roxycodone Tab*) 10 mg PO Q4H PRN PRN Reason: PAIN - BREAKTHROUGH Last Admin: 03/31/19 11:59 Dose: 10 mg Oxycodone/Acetaminophen (Percocet 5/325 Tab*) 1 tab PO Q4H PRN PRN Reason: PAIN - MODERATE Oxycodone/Acetaminophen (Percocet 5/325 Tab*) 2 tab PO Q4H PRN PRN Reason: PAIN - SEVERE Last Admin: 03/30/19 17:01 Dose: 2 tab Pharmacy Profile Note (Scopolamine Patch Remove*) 1 note PATCH OFF Q72H ONE Stop: 04/02/19 05:52 Polyethylene Glycol/Electrolytes (Miralax*) 17 gm PO DAILY PRN PRN Reason: Constipation Polyethylene Glycol/Electrolytes (Miralax*) 17 gm PO 0800,2100 [facility] Scopolamine (Transderm-Scop 1.5 Mg Patch*) 1 patch TRANSDERM Q72H PRN PRN Reason: Nausea/Vomiting Umeclidinium/Vilanterol (Anoro 62.5/25 Ellipta Device (Nf)) 1 inh INH QAM [facility] Last Admin: 03/31/19 08:08 Dose: Not Given Vital Signs - 8 hr 03/31/19 03/31/19 03/31/19 06:00 06:18 06:19 Temperature Pulse Rate Respiratory 16 16 16 Rate Blood Pressure (mmHg) O2 Sat by Pulse 96 Oximetry 03/31/19 03/31/19 03/31/19 08:12 08:38 09:46 Temperature 98.2 F Pulse Rate 104 Respiratory 16 16 16 Rate Blood Pressure 151/70 (mmHg) O2 Sat by Pulse 98 Oximetry 03/31/19 03/31/19 11:45 11:59 Temperature 98.4 F Pulse Rate 99 Respiratory 16 16 Rate Blood Pressure 147/72 (mmHg) O2 Sat by Pulse 99 Oximetry Oxygen Devices in Use Now: Nasal Cannula Appearance: Alert, in a chair. In fair spirits, looks somewhat uncomfortable. Eyes: No Scleral Icterus Neck: NL Appearance and Movements; NL JVP, No Thyroid Enlargement, Masses Respiratory: Symmetrical Chest Expansion and Respiratory Effort, Clear to Auscultation, Clear to Percussion Cardiovascular: NL Sounds; No Murmurs; No JVD, RRR, No Edema, - Extremities: No Edema, No Clubbing, Cyanosis, - - cooling device on R knee Skin: No Rash or Ulcers, No Nodules or Sclerosis, - Neurological: Alert and Oriented x 3, NL Sensation Result Diagrams: 03/31/19 06:18 03/31/19 06:18 Assess/Plan/Problems-Billing Assessment: - Patient Problems (1) S/P total knee arthroplasty Current Visit: Yes Status: Acute Code(s): Z96.659 - PRESENCE OF UNSPECIFIED ARTIFICIAL KNEE JOINT SNOMED Code(s): 3738193007999 Comment: R knee, 03/30/19. Management per ortho team. (2) Diabetes Current Visit: Yes Status: Acute Code(s): E11.9 - TYPE 2 DIABETES MELLITUS WITHOUT COMPLICATIONS SNOMED Code(s): 21975635 Comment: Hold metformin while in the hospital. Continue Lispro by SS. Start exenatide weekly. (3) Constipation Current Visit: Yes Status: Acute Code(s): K59.00 - CONSTIPATION, UNSPECIFIED SNOMED Code(s): 86292584 Comment: Expected with opiod use. PEG 17 gm bid to start 03/31 PM. (4) Tobacco abuse Current Visit: Yes Status: Acute Code(s): Z72.0 - TOBACCO USE SNOMED Code( s): 568874225 Comment: Nicotine patch ordered, pt requested.
[2019-03-31] MEDS ORDERED: EXENATIDE MICROSPHERES 2 MG SC SCH (13:00)
[2019-03-31] MEDS: Atorvastatin* 20 MG TAB PO SCH (18:16)
[2019-03-31] MEDS: DULoxetine DR CAP* 60 MG CAP.DR PO SCH (18:16)
[2019-03-31] MEDS: Polyethylene Glycol 3350* 17 GM PACKET PO SCH (20:30)
[2019-04-01] MEDS: oxyCODONE TAB* 5 MG TAB PO PRN ×5 (00:40→21:20)
[2019-04-01] MEDS: Levothyroxine TAB* 175 MCG TAB PO SCH (05:08)
[2019-04-01 05:55] LABS: Hematocrit 48 % (35-47); Hemoglobin 16.2 g/dL (12.0-16.0); Mean Platelet Volume 8.1 fL (7.4-10.4); Platelet Count 236 10^3/uL (150-450)
[2019-04-01] MEDS: Morphine TAB Extended Release (*) 15 MG TAB.ER PO SCH ×2 (07:43→21:22)
[2019-04-01] MEDS: Polyethylene Glycol 3350* 17 GM PACKET PO SCH ×2 (09:29→21:22)
[2019-04-01] MEDS: Docusate CAP* 100 MG PO SCH ×2 (09:30→21:22)
[2019-04-01] MEDS: busPIRone TAB* 5 MG PO SCH ×2 (09:30→21:20)
[2019-04-01] MEDS: Vitamin THERAPEUTIC TAB PO SCH (09:30)
[2019-04-01] MEDS: Apixaban* 2.5 MG TAB PO SCH ×2 (09:30→21:21)
[2019-04-01] MEDS: Insulin LISPRO* 1 UNITS UNIT SUBCUT SCH ×4 (09:31→21:23)
[2019-04-01] MEDS: PTO: Umeclidin/Vilant 62.5 MDI 62.5/25 mcg 14 INH ELLIPTA DEVICE INH SCH (09:38)
[2019-04-01] MEDS: Magnesium Hydroxide LIQ* 30 ML UDC PO SCH ×2 (09:39→21:20)
--- NOTE | 2019-04-01 09:54 | DS ---
Orthopedic Discharge Summary - Discharge Summary Date of Admission:03/31/19 Date of Discharge: [] Date of Surgery: [] Attending Orthopedic Provider: [] Pre-operative Diagnosis: [] Operative Procedure: [] Disposition of Patient: [] Condition of Patient: [] History: ADEN PEDERSEN is a 54 year old F with years of increasingly severe [] pain. Patient has failed conservative management and has elected to undergo a [ ] total [] replacement Hospital Course: ADEN was admitted to [facility] on 03/31/19. Patient underwent a [] without complication followed by a brief recovery in PACU and transfer to the Short Stay Surgical Unit in stable condition. Our hospitalist service, physical therapy and occupational therapy also participated in this patients care. Post-op day 1: patient was alert and in no acute distress. Dressing was clean, dry and intact. Operative extremity dorsiflexion and plantarflexion intact, sensation intact to light touch distally , DP2+. Post-op day two: dressing was changed, incision was clean, dry and intact. Patient was deemed to be medically and orthopedically stable for discharge. Physical therapy goals were met. Home Medications Medication Instructions Recorded Confirmed Type busPIRone TAB* [Buspar TAB*] 5 mg PO BID 07/04/12 03/30/19 History Exenatide Microspheres [Bydureon] 2 mg SC WEEKLY 11/25/15 03/30/19 History Acetaminophen [Extra Strength 1,000 mg PO Q6H PRN 12/13/17 03/30/19 History Non-Aspirin] Empagliflozin/Metformin HCl 1,000 mg PO BID 12/13/17 03/30/19 History [Synjardy 5-1000 mg] Levothyroxine TAB* [Synthroid TAB*] 175 mcg PO QAM 12/13/17 03/30/19 History Meloxicam 7.5 mg PO SEE INSTRUCTIONS 12/13/17 03/30/[address] CAP* [Cymbalta CAP*] 60 mg PO 1800 07/18/18 03/30/19 History Simvastatin [Zocor] 40 mg PO 1800 07/18/18 03/30/19 History Umeclidin/Vilant 62.5 MDI(NF) 1 inh INH QAM 03/20/19 03/30/19 History [ANORO 62.5/25 Ellipta DEVICE (NF)]
--- NOTE | 2019-04-01 10:55 | PN ---
Progress Note - Progress Note Date of Service: 04/01/19 Note: Patient was in PT when I arrived and is now in her room. She has 8/10 pain and PT reports she was unable to perform stairs at all and seemed unsteady rising from the chair to ambulate. She continues to have episodes of tachycardia that are being followed by medicine. Her dressing was disheveled, so new gauze and Christ wrap were applied. Her incision is well approximated with intact sutures and no drainage. Sensation is intact with 2+ DP pulse. She dorsi/plantar flexes the right ankle. After discussion with marketing planner, patient is accepted the rehab on Wednesday. We will continue to monitor and appreciate medicine's care.
[2019-04-01] MEDS: Nicotine PATCH 14 MG/24 HR* PATCH TRANSDERM SCH (11:42)
[2019-04-01] MEDS ORDERED: Magnesium CITRATE* 300 ML BTL PO PRN (13:41)
--- NOTE | 2019-04-01 13:41 | PN ---
Subjective Date of Service: 04/01/19 Interval History: Pain gradually improving. Appetite better. No BM since admission. No new c/o. Objective Active Medications: Acetaminophen (Tylenol Tab*) 650 mg PO Q8H PRN PRN Reason: PAIN - MILD Apixaban (Eliquis*) 2.5 mg PO BID [facility] Last Admin: 04/01/19 09:30 Dose: 2.5 mg Atorvastatin Calcium (Lipitor*) 40 mg PO 1800 [facility] Last Admin: 03/31/19 18:16 Dose: 40 mg Bisacodyl (Dulcolax Supp*) 10 mg [place] DAILY PRN PRN Reason: constipation Buspirone HCl (Buspar Tab*) 5 mg PO BID [facility] Last Admin: 04/01/19 09:30 Dose: 5 mg Cyclobenzaprine HCl (Flexeril Tab*) 5 mg PO TID PRN PRN Reason: SPASMS Last Admin: 03/31/19 15:54 Dose: 5 mg Dextrose (Dextrose 50% Vial 50 Ml*) 12.5 ml IV PUSH .FOR FS < 60 - SS PRN PRN Reason: FS < 60 Diphenhydramine HCl (Benadryl Iv*) 25 mg IV Q6H PRN PRN Reason: itching Docusate Sodium (Colace Cap*) 100 mg PO BID [facility] Last Admin: 04/01/19 09:30 Dose: 100 mg Duloxetine HCl (Cymbalta Cap*) 60 mg PO 1800 [facility] Last Admin: 03/31/19 18:16 Dose: 60 mg Hydromorphone HCl (Dilaudid Inj1s*) 1 mg IV SLOW PU Q2H PRN PRN Reason: PAIN - SEVERE Last Admin: 03/31/19 09:46 Dose: 1 mg Lactated Ringer's (Lactated Ringers 1000 Ml Bag*) 1,000 mls @ 100 mls/hr IV PER RATE [facility] Last Admin: 03/31/19 00:31 Dose: 100 mls/hr Insulin Human Lispro (Humalog*) 0 units SUBCUT ACHS [facility]; Protocol Last Admin: 04/01/19 13:05 Dose: 3 unit Lactulose (Lactulose*) 30 ml PO Q6H PRN PRN Reason: constipation Levothyroxine Sodium (Synthroid Tab*) 175 mcg PO DAILY@0600 [facility] Last Admin: 04/01/19 05:08 Dose: 175 mcg Magnesium Hydroxide (Milk Of Magnesia Liq*) 30 ml PO BID [facility] Last Admin: 04/01/19 09:39 Dose: Not Given Magnesium Hydroxide (Milk Of Magnesia Liq*) 30 ml PO Q6H PRN PRN Reason: constipation Morphine Sulfate (Ms Contin(*)) 15 mg PO Q12H [facility] Last Admin: 04/01/19 07:43 Dose: 15 mg Multivitamins (Theragran Tab*) 1 tab PO DAILY [facility] Last Admin: 04/01/19 09:30 Dose: 1 tab Nicotine (Nicotine Patch 14 Mg/24 Hr*) 1 patch TRANSDERM DAILY [facility] Last Admin: 04/01/19 11:42 Dose: 1 patch Pto:(Exenatide Microspheres [ Bydureon] 2 Mg) Pen 2 mg SC Q7D [facility] Last Admin: 03/31/19 18:16 Dose: 2 mg Ondansetron HCl (Zofran Inj*) 4 mg IV Q6H PRN PRN Reason: nausea Last Admin: 03/31/19 08:18 Dose: 4 mg Oxycodone HCl (Roxycodone Tab*) 10 mg PO Q4H PRN PRN Reason: PAIN - BREAKTHROUGH Last Admin: 04/01/19 11:41 Dose: 10 mg Oxycodone/Acetaminophen (Percocet 5/325 Tab*) 1 tab PO Q4H PRN PRN Reason: PAIN - MODERATE Oxycodone/Acetaminophen (Percocet 5/325 Tab*) 2 tab PO Q4H PRN PRN Reason: PAIN - SEVERE Last Admin: 03/30/19 17:01 Dose: 2 tab Pharmacy Profile Note (Scopolamine Patch Remove*) 1 note PATCH OFF Q72H ONE Stop: 04/02/19 05:52 Polyethylene Glycol/Electrolytes (Miralax*) 17 gm PO DAILY PRN PRN Reason: Constipation Polyethylene Glycol/Electrolytes (Miralax*) 17 gm PO 0800,2100 [facility] Last Admin: 04/01/19 09:29 Dose: 17 gm Scopolamine (Transderm-Scop 1.5 Mg Patch*) 1 patch TRANSDERM Q72H PRN PRN Reason: Nausea/Vomiting Umeclidinium/Vilanterol (Anoro 62.5/25 Ellipta Device (Nf)) 1 inh INH QAM [facility] Last Admin: 04/01/19 09:38 Dose: Not Given Vital Signs - 8 hr 04/01/19 04/01/19 04/01/19 07:14 07:43 07:50 Temperature Pulse Rate Respiratory 16 18 18 Rate Blood Pressure (mmHg) O2 Sat by Pulse 90 Oximetry 04/01/19 04/01/19 04/01/19 08:13 10:49 11:33 Temperature 99.4 F 98.7 F Pulse Rate 116 106 Respiratory 16 18 14 Rate Blood Pressure 137/71 133/70 (mmHg) O2 Sat by Pulse 90 89 Oximetry 04/01/19 11:41 Temperature Pulse Rate Respiratory 18 Rate Blood Pressure (mmHg) O2 Sat by Pulse Oximetry Oxygen Devices in Use Now: None Appearance: Alert, in a chair. In good spirits. Looks comfortable. Eyes: No Scleral Icterus Extremities: No Edema, No Clubbing, Cyanosis, - Skin: No Rash or Ulcers, No Nodules or Sclerosis, - Neurological: Alert and Oriented x 3, NL Sensation Result Diagrams: 04/01/19 05:39 03/31/19 06:18 Assess/Plan/Problems-Billing Assessment: - Patient Problems (1) S/P total knee arthroplasty Current Visit: Yes Status: Acute Code(s): Z96.659 - PRESENCE OF UNSPECIFIED ARTIFICIAL KNEE JOINT SNOMED Code(s): 6831244572631 Comment: R knee, 03/30/19. Management per ortho team. (2) Diabetes Current Visit: Yes Status: Acute Code(s): E11.9 - TYPE 2 DIABETES MELLITUS WITHOUT COMPLICATIONS SNOMED Code(s): 23604736 Comment: Hold metformin while in the hospital. Continue Lispro by SS. Continue exenatide weekly. (3) Constipation Current Visit: Yes Status: Acute Code(s): K59.00 - CONSTIPATION, UNSPECIFIED SNOMED Code(s): 35663952 Comment: Expected with opiod use. PEG 17 gm bid ordered to start 03/31 PM, pt refused first dose. If no BM by 04/02 afternoon, would give mag citrate 300 ml--prn dose ordered. (4) Tobacco abuse Current Visit: Yes Status: Acute Code(s): Z72.0 - TOBACCO USE SNOMED Code( s): 985819765 Comment: Nicotine patch ordered, pt requested.
[2019-04-01] MEDS: DULoxetine DR CAP* 60 MG CAP.DR PO SCH (18:27)
[2019-04-01] MEDS: Atorvastatin* 20 MG TAB PO SCH (18:27)
[2019-04-02] MEDS: oxyCODONE/Acetamin 5/325 MG* TAB PO PRN ×4 (04:35→21:33)
[2019-04-02 05:38] LABS: Hematocrit 44 % (35-47); Hemoglobin 14.9 g/dL (12.0-16.0); Mean Platelet Volume 8.1 fL (7.4-10.4); Platelet Count 243 10^3/uL (150-450)
[2019-04-02] MEDS ORDERED: Scopolamine PATCH Remove* 1 NOTE MISC PATCH OFF ONE (05:51)
[2019-04-02] MEDS: Levothyroxine TAB* 175 MCG TAB PO SCH (05:54)
--- NOTE | 2019-04-02 07:43 | PN ---
Progress Note - Progress Note Date of Service: 04/02/19 Note: Patient is resting comfortably in bed breathing easily. She denies SOB, CP or calf pain. She has been OOB with PT and feels she has made better progress since yesterday. Her pain is better controlled although still present. She dorsi /plantar flexes both ankles with intact sensation and 2+ DP pulses. Dressing is C/D/I with cryocuff in place. Plan: continue PT with plan for d/c tomorrow to rehab.
[2019-04-02] MEDS: PTO: Umeclidin/Vilant 62.5 MDI 62.5/25 mcg 14 INH ELLIPTA DEVICE INH SCH (07:53)
[2019-04-02] MEDS: Nicotine PATCH 14 MG/24 HR* PATCH TRANSDERM SCH (09:47)
[2019-04-02] MEDS: Polyethylene Glycol 3350* 17 GM PACKET PO SCH ×2 (09:48→21:33)
[2019-04-02] MEDS: Insulin LISPRO* 1 UNITS UNIT SUBCUT SCH ×4 (09:48→21:35)
[2019-04-02] MEDS: busPIRone TAB* 5 MG PO SCH ×2 (09:50→21:33)
[2019-04-02] MEDS: Vitamin THERAPEUTIC TAB PO SCH (09:50)
[2019-04-02] MEDS: Morphine TAB Extended Release (*) 15 MG TAB.ER PO SCH ×2 (09:50→21:34)
[2019-04-02] MEDS: Docusate CAP* 100 MG PO SCH ×2 (09:50→21:34)
[2019-04-02] MEDS: Apixaban* 2.5 MG TAB PO SCH ×2 (09:51→21:34)
--- NOTE | 2019-04-02 15:44 | PN ---
Subjective Date of Service: 04/02/19 Interval History: Pt is sleeping when I enter, wakes easily to talk. She states she is tired and had a busy day with PT, ambulation, chair exercises, and visiting with family. She states that she continues to have pain in RLE, rating it at 6/10. She is noted to have had a BM yesterday. She denies CP, SOB, cough, fever. She denies abd pain, n/v/d. Objective Active Medications: Acetaminophen (Tylenol Tab*) 650 mg PO Q8H PRN Apixaban (Eliquis*) 2.5 mg PO BID [facility] Atorvastatin Calcium (Lipitor*) 40 mg PO 1800 [facility] Bisacodyl (Dulcolax Supp*) 10 mg [place] DAILY PRN Buspirone HCl (Buspar Tab*) 5 mg PO BID [facility] Cyclobenzaprine HCl (Flexeril Tab*) 5 mg PO TID PRN Dextrose (Dextrose 50% Vial 50 Ml*) 12.5 ml IV PUSH .FOR FS < 60 - SS PRN Diphenhydramine HCl (Benadryl Iv*) 25 mg IV Q6H PRN Docusate Sodium (Colace Cap*) 100 mg PO BID [facility] Duloxetine HCl (Cymbalta Cap*) 60 mg PO 1800 [facility] Hydromorphone HCl (Dilaudid Inj1s*) 1 mg IV SLOW PU Q2H PRN Lactated Ringer's (Lactated Ringers 1000 Ml Bag*) 1,000 mls @ 100 mls/hr IV PER RATE [facility] Insulin Human Lispro (Humalog*) 0 units SUBCUT ACHS [facility]; Protocol Lactulose (Lactulose*) 30 ml PO Q6H PRN Levothyroxine Sodium (Synthroid Tab*) 175 mcg PO DAILY@0600 [facility] Magnesium Citrate (Citrate Of Magnesia*) 300 ml PO DAILY PRN Magnesium Hydroxide (Milk Of Magnesia Liq*) 30 ml PO Q6H PRN Morphine Sulfate (Ms Contin(*)) 15 mg PO Q12H [facility] Multivitamins (Theragran Tab*) 1 tab PO DAILY [facility] Nicotine (Nicotine Patch 14 Mg/24 Hr*) 1 patch TRANSDERM DAILY [facility] Pto:(Exenatide Microspheres [ Bydureon] 2 Mg) Pen 2 mg SC Q7D [facility] Ondansetron HCl (Zofran Inj*) 4 mg IV Q6H PRN Oxycodone HCl (Roxycodone Tab*) 10 mg PO Q4H PRN Oxycodone/Acetaminophen (Percocet 5/325 Tab*) 1 tab PO Q4H PRN Oxycodone/Acetaminophen (Percocet 5/325 Tab*) 2 tab PO Q4H PRN Polyethylene Glycol/Electrolytes (Miralax*) 17 gm PO DAILY PRN Polyethylene Glycol/Electrolytes (Miralax*) 17 gm PO 0800,2100 [facility] Scopolamine (Transderm-Scop 1.5 Mg Patch*) 1 patch TRANSDERM Q72H PRN Umeclidinium/Vilanterol (Anoro 62.5/25 Ellipta Device (Nf)) 1 inh INH QAM [facility] Vital Signs: Temp Pulse Resp BP Pulse Ox 98.7 F 103 16 138/68 96 04/02/19 15:37 04/02/19 15:37 04/02/19 15:37 04/02/19 15:37 04/02/19 15:37 Oxygen Devices in Use Now: None Appearance: Pt is laying in bed, asleep. Wakes easily and responses are clear, appropriate. She appears to be in no acute distress. Eyes: No Scleral Icterus, PERRLA Ears/Nose/Mouth/Throat: NL Teeth, Lips, Gums, Mucous Membranes Moist Neck: NL Appearance and Movements; NL JVP, Trachea Midline Respiratory: Symmetrical Chest Expansion and Respiratory Effort, Clear to Auscultation Cardiovascular: NL Sounds; No Murmurs; No JVD, RRR, No Edema Abdominal: NL Sounds; No Tenderness; No Distention, No Hepatosplenomegaly Extremities: No Edema, No Clubbing, Cyanosis, - - R knee with CDI dressing and cryo unit in place. Neurological: Alert and Oriented x 3 Result Diagrams: 04/02/19 05:26 03/31/19 06:18 Assess/Plan/Problems-Billing Assessment: 54yof PMHx DM, COPD, ISAC, obesity presents for RTKA. - Patient Problems (1) S/P total knee arthroplasty Comment: -POD3 R knee, 03/30/19 -Management per ortho team (2) Tachycardia Comment: -Pt appears euvolemic without CP, SOB, fever, calf tenderness -Ddimer ordered and WNL with age-adjustment -Likely that this is due to post-operative pain (3) Diabetes Comment: -Controlled -Continue Lispro by SS -Continue exenatide weekly -Hold metformin while inpatient (4) Constipation Comment: -BM 04/01 -Expected with opiod use -Continue bowel regimen (5) Tobacco abuse Comment: -Nicotine patch ordered, in place (6) DVT prophylaxis Comment: -Per ortho: Manda (7) Full code status Status and Disposition: Inpatient. Discharge per ortho. Plan for a.m. discharge to [facility].
[2019-04-02] MEDS: Atorvastatin* 20 MG TAB PO SCH (17:51)
[2019-04-02] MEDS: DULoxetine DR CAP* 60 MG CAP.DR PO SCH (17:51)
[2019-04-03 05:27] LABS: Hematocrit 43 % (35-47); Hemoglobin 14.4 g/dL (12.0-16.0); Mean Platelet Volume 7.9 fL (7.4-10.4); Platelet Count 264 10^3/uL (150-450)
[2019-04-03] MEDS: Levothyroxine TAB* 175 MCG TAB PO SCH (06:04)
[2019-04-03] MEDS: Docusate CAP* 100 MG PO SCH (08:18)
[2019-04-03] MEDS: Apixaban* 2.5 MG TAB PO SCH (08:18)
[2019-04-03] MEDS: Morphine TAB Extended Release (*) 15 MG TAB.ER PO SCH (08:18)
[2019-04-03] MEDS: busPIRone TAB* 5 MG PO SCH (08:18)
[2019-04-03] MEDS: Nicotine PATCH 14 MG/24 HR* PATCH TRANSDERM SCH (08:18)
[2019-04-03] MEDS: Vitamin THERAPEUTIC TAB PO SCH (08:18)
[2019-04-03] MEDS: Polyethylene Glycol 3350* 17 GM PACKET PO SCH (08:18)
[2019-04-03] MEDS: Insulin LISPRO* 1 UNITS UNIT SUBCUT SCH (09:10)
[2019-04-03] MEDS: PTO: Umeclidin/Vilant 62.5 MDI 62.5/25 mcg 14 INH ELLIPTA DEVICE INH SCH (09:48)
[2019-04-03 11:23] VITALS: BP 134/70
[2019-04-03] MEDS: oxyCODONE/Acetamin 5/325 MG* TAB PO PRN (11:30)
[2019-04-03] MEDS ORDERED: Iodixanol* (CONTRAST) 320 MG/ML 100 ML SDV IV ONE (11:57)
--- NOTE | 2019-04-03 13:13 | PN ---
Progress Note - Progress Note Date of Service: 04/03/19 SOAP: Subjective: []Patient seen OOB in chair. She feels well without chest pain or shortness of breath. Denies nausea, dizziness as well. Knee pain is well controlled, described as sore. Objective: []General: NAD, appears well RLE: Dressing changed, incision CDI without discharge or erythema. Thigh soft, DF/PF intact, DP2+, sensation intact to light touch distally. Calves supple and nontender without erythema, edema or palpable cords Assessment: []s/p Navio assisted RTK Plan: []WBAT PT/OT CTA ordered due to low grade tachycardia post op and need for overnight O2. Patient does not require O2 at home, previously required home O2 but not in 4 years DC to rehab today as long as CTA is negative for PE. Discussed with medicine, of note patient reports she has had sustained tachycardia when her synthroid dose has been too high. If she has not had recent thyroid testing she can have this with her PCP outpatient Vital Signs Temp 98.9 F 04/03/19 11:22 Pulse 106 04/03/19 11:22 Resp 16 04/03/19 11:30 BP 134/70 04/03/19 11:22 Pulse Ox 97 04/03/19 11:22 Intake & Output 04/02/19 04/03/19 04/03/19 18:59 06:59 18:59 Intake Total 1940 600 120 Output Total 2600 1300 300 Balance -660 -700 -180 Weight 216 lb Intake: Oral 1940 600 120 Output: Urine 2600 1300 300 Other: # Bowel Movements 0 Laboratory Last Values Hgb 14.4 g/dL (12.0-16.0) 04/03/19 05:08 Hct 43 % (35-47) 04/03/19 05:08 Plt Count 264 10^3/uL (150-450) 04/03/19 05:08 MPV 7.9 fL (7.4-10.4) 04/03/19 05:08 D-Dimer, Quantitative 408 ng/mL (Less Than 230) H 04/02/19 15:44 Sodium 134 mmol/L (135-145) L 03/31/19 06:18 Potassium 4.2 mmol/L (3.5-5.0) 03/31/19 06:18 Chloride 98 mmol/L (101-111) L 03/31/19 06:18 Carbon Dioxide 27 mmol/L (22-32) 03/31/19 06:18 Anion Gap 9 mmol/L (2-11) 03/31/19 06:18 BUN 10 mg/dL (6-24) 03/31/19 06:18 Creatinine 0.64 mg/dL (0.51-0.95) 03/31/19 06:18 Est GFR ( Amer) 117.9 (>60) 03/31/19 06:18 Est GFR (Non-Af Amer) 97.4 (>60) 03/31/19 06:18 BUN/Creatinine Ratio 15.6 (8-20) 03/31/19 06:18 Glucose 186 mg/dL (70-100) H 03/31/19 06:18 POC Glucose (mg/dL) 162 mg/dL (70-100) H 04/03/19 07:11 Calcium 8.8 mg/dL (8.6-10.3) 03/31/19 06:18 TSH 1.20 mcIU/mL (0.34-5.60) 04/03/19 05:08
--- NOTE | 2019-04-03 14:08 | DS ---
Orthopedic Discharge Summary - Discharge Summary Date of Admission:03/31/19 Date of Discharge: 04/03/19 Date of Surgery: 03/31/19 Attending Orthopedic Provider: Dr Shea Pre-operative Diagnosis: right knee osteoarthritis Operative Procedure: right total knee replacement Disposition of Patient: home with nursing services and home PT Condition of Patient:stable History: ADEN PEDERSEN is a 54 year old F with years of increasingly severe right knee pain. Patient has failed conservative management and [facility] Hospital Course: ADEN was admitted to [facility] on 03/31/19. Patient underwent a right total knee replacement without complication followed by a brief recovery in PACU and transfer to the Short Stay Surgical Unit in stable condition. Our hospitalist service, physical therapy and occupational therapy also participated in this patients care. Post-op day 1: patient was alert and in no acute distress. Dressing was clean, dry and intact. Operative extremity dorsiflexion and plantarflexion intact, sensation intact to light touch distally, DP2+. Post-op day two and three: dressing was changed, incision was clean, dry and intact. POD 3 goals were met with physical therapy, CTA chest was done and no PE was found. Hospitalist team felt tachycardia to be due to post op pain. Patient was deemed to be medically and orthopedically stable for discharge. Home Medications Medication Instructions Recorded Confirmed Type busPIRone TAB* [Buspar TAB*] 5 mg PO BID 07/04/12 03/30/19 History Exenatide Microspheres [Bydureon] 2 mg SC WEEKLY 11/25/15 03/30/19 History Acetaminophen [Extra Strength 1,000 mg PO Q6H PRN 12/13/17 03/30/19 History Non-Aspirin] Empagliflozin/Metformin HCl 1,000 mg PO BID 12/13/17 03/30/19 History [Synjardy 5-1,000 mg Tablet] Levothyroxine TAB* [Synthroid 150 175 mcg PO QAM 12/13/17 03/30/19 History MCG TAB*] DULoxetine DR HENNESSY* [Cymbalta CAP*] 60 mg PO 1800 07/18/18 03/30/19 History Simvastatin [Zocor] 40 mg PO 1800 07/18/18 03/30/19 History Umeclidin/Vilant 62.5 MDI(NF) 1 inh INH QAM 03/20/19 03/30/19 History [ANORO 62.5/25 Ellipta DEVICE (NF)] Acetaminophen TAB* [Tylenol TAB*] 650 mg PO Q8H PRN tab 04/03/19 Rx Apixaban* [Eliquis*] 2.5 mg PO BID 30 Days tab 04/03/19 Rx Docusate CAP* [Colace Cap*] 100 mg PO BID cap 04/03/19 Rx Morphine TAB Extended Rel(*) [Ms 15 mg PO Q12H tab.er 04/03/19 Rx Contin(*)] Scopolamine 1.5 mg* PATCH* 1 patch TRANSDERM Q72H PRN patch 04/03/19 Rx [Transderm-Scop 1.5 mg Patch*] oxyCODONE TAB* [Roxycodone TAB 5 10 mg PO Q4H PRN tab 04/03/19 Rx mg*] oxyCODONE/Acetamin 5/325 MG* 1 tab PO Q4H PRN tab MDD 10 04/03/19 Rx [Percocet 5/325 TAB*] oxyCODONE/Acetamin 5/325 MG* 2 tab PO Q4H PRN tab MDD 10 04/03/19 Rx [Percocet 5/325 TAB*] Discharge Instructions following Orthopedic Surgery: Activity: * Weight Bearing as tolerated * Continue physical therapy and occupational therapy exercises as shown * Home PT Wound care: * OK to shower on post-op day 3, no bathing, swimming, or submerging wound. * Use gentle soap, pat dry. Cover with gauze, ISMA wrap or tape. * home nurse to do wound checks. Call Orthopedic office for: * Increased drainage * Redness * Increased pain * Fever Go to ER with shortness of breath or chest pain. Diet: * Regular diet * Increase fluids and fiber to prevent constipation. * Continue to use stool softeners, call office if no bowel motion within 48 hours. Medications See Home Medication List in your packet for medications that you should take after discharge. DVT Prophylaxis: Eliquis Dosin.5 mg, 1 tab every 12 hours x 30 days. This medication increases bleeding risk Pain Control: Percocet Dosin/325 mg 1-2 tabs by mouth every 4-6 hours as needed for pain. Maximum of 10 tabs per day. Hold for sedation, wean off as soon as pain allows Long acting morphine 15 mg 1 tab every 12 hours as needed for severe pain. Wean off this medication first, then off of percocet. Hold for sedation. Please note that Percocet contains Tylenol (acetaminophen). Maximum daily dose of Tylenol is 4000 mg from all sources. Antibiotics are required prior to any dental work. FOLLOW UP: Follow up with [Shabbir] Within 10-14 days, call for appointment Please call our office with any questions or concerns ([phone]) Please follow up with PCP for tachycardia
== END 2019-04-03 15:00 | disposition home health service (06) | DRG 470 ==
LOC: INTOOBSV 07:08 → AA 07:08 → SSU 13:06 → AA 13:23 → OBSVTOIN 03-31 13:23
PROVIDERS: ADMIT Orthopaedic Surgery Adult Reconstructive Orthopaedic Surgery; ATTEND Orthopaedic Surgery Adult Reconstructive Orthopaedic Surgery
PROC: 8E0YXBZ Computer Assisted Procedure of Lower Extremity (ICD-10-PCS; 2019-03-30)
PROC: 0SRC069 Replacement of Right Knee Joint with Oxidized Zirconium on Polyethylene Synthetic Substitute, Cemented, Open Approach (ICD-10-PCS; principal; 2019-03-30 09:30)
DX: M17.11 Unilateral primary osteoarthritis, right knee (principal); Z68.41 Body mass index [BMI] 40.0-44.9, adult; R00.0 Tachycardia, unspecified; E78.00 Pure hypercholesterolemia, unspecified; F32.9 Major depressive disorder, single episode, unspecified; F41.9 Anxiety disorder, unspecified; E11.9 Type 2 diabetes mellitus without complications; E89.0 Postprocedural hypothyroidism; F17.210 Nicotine dependence, cigarettes, uncomplicated; J44.9 Chronic obstructive pulmonary disease, unspecified; G47.33 Obstructive sleep apnea (adult) (pediatric); K59.00 Constipation, unspecified; R11.2 Nausea with vomiting, unspecified; M25.761 Osteophyte, right knee; K21.9 Gastro-esophageal reflux disease without esophagitis; E66.01 Morbid (severe) obesity due to excess calories; E78.5 Hyperlipidemia, unspecified; Z91.030 Bee allergy status; Z88.5 Allergy status to narcotic agent; Z88.8 Allergy status to other drugs, medicaments and biological substances; Z90.49 Acquired absence of other specified parts of digestive tract; Z83.3 Family history of diabetes mellitus; Z82.49 Family history of ischemic heart disease and other diseases of the circulatory system; Z82.3 Family history of stroke; Z82.61 Family history of arthritis; Z79.84 Long term (current) use of oral hypoglycemic drugs
CPT/HCPCS: 36415; 71275; 80048; 84443; 85014; 85018; 85049; 85379; 88305; 88311; 94640; A9270-GY; C1776; G8978-GP-CK; G8978-GP-CL; G8979-GP-CI; G8979-GP-CJ; G8979-GP-CK; J0690; J1170; J2250; J2405; J2795; J3010; J3490; Q9967

== ENCOUNTER → 2019-04-05 13:15 | Emergency (ER) | payer MEDICARE ==
[~2019-04-05 13:15] MED LIST changes: -Acetaminophen TAB* 325 MG PO ONE; +Amoxicillin/Clavulanate TAB* 875 MG PO ONE; -Buffered Lidocaine 1% SYRIN* 1 ML/SYRINGE INTRADERM ONE; -DiMENhydriNATE IV* 50 MG/ML VIAL IV PUSH PRN; -Famotidine IV* 10 MG/ML 2 ML (20 mg) IV ONE; -Gabapentin CAP(*) 300 MG PO ONE; -HYDROmorphone INJ1* 1 MG/ML SYRINGE IV PRN; -Lactated Ringers 1000 ML Bag* 1,000 ML IV SCH; -Levalbuterol 0.63MG/3ML NEB* UNIT OF USE INH ONE; -Naloxone* 0.4 MG/ML 1 ML VIAL IV PRN; -Ondansetron ODT TAB* 4 MG PO ONE; -PROCHLORPERAZINE INJ 5 MG/ML 2 ML VIAL IV PRN; -Scopolamine 1.5 mg* PATCH TRANSDERM PRN; -Tranexamic Acid 1,000 MG in NS 0.9% 50 ML* (outpatient use) IV SCH; -celeCOXIB CAP* 200 MG PO ONE; -fentaNYL* 50 MCG/ML 2 ML VIAL (100 MCG VIAL) IV PRN
--- NOTE | 2019-04-05 14:26 | ED ---
Lower Extremity - HPI Summary HPI Summary: Patient is a 54-year-old female who presents emergency department for right lower leg swelling and redness since yesterday. Patient had a right total knee replacement by Dr. Shea on 03/31/19. Patient states she's been doing well and is at home receiving physical therapy. Patient states she noticed increased swelling to her right lower leg yesterday and a small area of redness has progressed today. Patient denies any increase in knee pain, decision drainage, fever, chills, vomiting. Patient is currently on Eliquis. Symptoms are moderate in severity. No current modifying factors. - History of Current Complaint Chief Complaint: EDExtremityLower Stated Complaint: POSS BLOOD CLOT IN RT LEG/SURG WEDNESDAY PER PT Time Seen by Provider: 04/05/19 13:53 Hx Obtained From: Patient Hx Last Menstrual Period: n/a Pain Intensity: 9 - Allergies/Home Medications Allergies/Adverse Reactions: Allergies Allergy/AdvReac Type Severity Reaction Status Date / Time bee venom protein (honey bee) Allergy Severe Anaphylatic Verified 04/05/19 13:22 Shock canagliflozin AdvReac Severe weakness Verified 04/05/19 13:22 codeine AdvReac Severe Agitation Verified 04/05/19 13:22 prednisone AdvReac Severe Agitation Verified 04/05/19 13:22 PMH/Surg Hx/FS Hx/Imm Hx Previously Healthy: Yes Endocrine/Hematology History: Reports: Hx Diabetes - type 2, Hx Thyroid Disease Denies: Hx Anticoagulant Therapy, Hx Sickle Cell Disease Cardiovascular History: Reports: Hx Angina, Hx Hypertension - HX OF, Other Cardiovascular Problems/Disorders - high cholesterol Denies: Hx Congestive Heart Failure, Hx Deep Vein Thrombosis, Hx Myocardial Infarction, Hx Pacemaker/ICD Respiratory History: Reports: Hx Sleep Apnea - HYPOPNEA Denies: Hx Asthma, Hx Chronic Obstructive Pulmonary Disease (COPD), Hx Lung Cancer, Hx Pneumonia, Hx Pulmonary Embolism GI History: Denies: Hx Gall Bladder Disease, Hx Gastrointestinal Bleed, Hx Ulcer, Hx Urosepsis History: Denies: Hx Kidney Stones, Hx Renal Disease, Other Problems/Disorders Musculoskeletal History: Reports: Hx Arthritis Sensory History: Reports: Hx Contacts or Glasses - GLASSES Denies: Hx Cataracts, Hx Hearing Aid Opthamlomology History: Reports: Hx Contacts or Glasses - GLASSES Denies: Hx Cataracts Neurological History: Reports: Hx Migraine - On no medications. Denies: Hx Dementia, Hx Seizures, Hx Transient Ischemic Attacks (TIA) Psychiatric History: Reports: Hx Anxiety, Hx Depression Denies: Hx Panic Disorder, Hx Schizophrenia, Hx Bipolar Disorder - Cancer History Cancer Type, Location and Year: thyroid Hx Chemotherapy: No Hx Radiation Therapy: No - Surgical History Surgery Procedure, Year, and Place: [facility] [facility] [place]ste[place] 2007 [place]; C-sections (1989 1987) [place]/ [place]; Thyroidectomy 1989 [place]. Cholecystectomy 01/2016. vein stripping [place] 2010 Hx Anesthesia Reactions: No Infectious Disease History: No Infectious Disease History: Reports: Hx Shingles - 10 years Denies: Traveled Outside the [place] in Last 30 Days - Family History Known Family History: Positive: Cardiac Disease, Hypertension, Diabetes, Non- Contributory - Social History Occupation: Disabled Lives: With Family Alcohol Use: Occasionally Substance Use Type: Reports: None Smoking Status (MU): Heavy Every Day Tobacco Smoker Type: Cigarettes Amount Used/How Often: 1 PPD Length of Time of Smoking/Using Tobacco: 28 years Have You Smoked in the Last Year: Yes Review of Systems Constitutional: Negative Negative: Fever, Chills Cardiovascular: Negative Negative: Chest Pain Respiratory: Negative Negative: Shortness Of Breath Positive: Nausea. Negative: Abdominal Pain, Vomiting Positive: Other - redness and swelling RLL Positive: Other - incision right knee Neurological: Negative Negative: Weakness, Paresthesia, Numbness All Other Systems Reviewed And Are Negative: Yes Physical Exam Triage Information Reviewed: Yes Vital Signs On Initial Exam: Initial Vitals Temp Pulse Resp BP Pulse Ox 97.5 F 103 16 171/81 94 04/05/19 13:16 04/05/19 13:16 04/05/19 13:16 04/05/19 13:16 04/05/19 13:16 Vital Signs Reviewed: Yes Appearance: Positive: Well-Appearing - Pt. lying in bed in NAD. Family present. Skin: Positive: Warm, Dry Head/Face: Positive: Normal Head/Face Inspection Eyes: Positive: Normal, EOMI Neck: Positive: Supple Musculoskeletal: Positive: Other - midline incision noted to right knee without erythema, edema, or drainage. Noted distally, medially on calf there is a large area of erythema and warmth. Marked edema to lower leg. Compartment is soft. Good pedal pulse. Neurological: Positive: Normal, CN Intact II-III Psychiatric: Positive: Affect/Mood Appropriate Diagnostics - Vital Signs Vital Signs Temp Pulse Resp BP Pulse Ox 04/05/19 13:16 97.5 F 103 16 171/81 94 - Laboratory Result Diagrams: 04/05/19 14:42 04/05/19 14:42 Lab Statement: Any lab studies that have been ordered have been reviewed, and results considered in the medical decision making process. Lower Extremity Course/Dx - Course Course Of Treatment: Patient presenting with swelling and redness to her right lower leg status post total knee replacement. She is afebrile. Incision looks well without signs of infection and patient does not have any increased pain to her knee. It appears pt has an area of cellulitis distal to knee. She is afebrile. Blood work and ultrasound obtained. Ultrasound negative for DVT, reading per radiology. Labs do show white blood cell count of 15,000 elevated CRP. Case was discussed with patient's surgeon, Dr. Shea. Dr. Shea feels patient can be discharged home on Augmentin if actual knee does not appear to be infected. She would like to see patient in the office in 2 days, Wednesday. Discussed with patient and she is comfortable with discharge home. She'll return to the ER sooner for increased redness, pain, fever or if concerned. - Diagnoses Differential Diagnosis/HQI/PQRI: Positive: Cellulitis, Infection Provider Diagnoses: Cellulitis Discharge - Sign-Out/Discharge Documenting (check all that apply): Patient Departure Patient Received Moderate/Deep Sedation with Procedure: No - Discharge Plan Condition: Good Disposition: HOME Prescriptions: Amoxicillin/Clavulanate TAB* [Augmentin TAB 875*] 875 mg PO BID #20 tab Patient Education Materials: Cellulitis (ED) Referrals: Aliza Shea MD [Medical Doctor] - Lewis Benavidez MD [Primary Care Provider] - Additional Instructions: Schedule an appointment with Dr. Shea for 04/07/19. Take antibiotic as directed Continue ice and elevation Return to ER for increased redness, pain, fever, or if concerned - Billing Disposition and Condition Condition: GOOD Disposition: Home
[2019-04-05 14:53] LABS: ABS Basophils 0.1 10^3/ul (0-0.2); ABS Eosinophils 0.1 10^3/ul (0-0.6); ABS Lymphocytes 1.1 10^3/ul (1.0-4.8); ABS Monocytes 1.2 10^3/ul (0-0.8); ABS Neutrophils 12.5 10^3/ul (1.5-7.7); Eosinophil % 0.6 %; Hematocrit 47 % (35-47); Hemoglobin 15.9 g/dL (12.0-16.0); Lymphocyte % 7.4 %; Mean Corpuscular HGB Conc 34 g/dL (31-36); Mean Corpuscular Hemoglobin 31 pg (27-31); Mean Corpuscular Volume 91 fL (80-97); Mean Platelet Volume 7.7 fL (7.4-10.4); Nucleated Red Blood Cells % 0.1; Platelet Count 372 10^3/uL (150-450); Red Blood Count 5.14 10^6 /uL (3.70-4.87); Red Cell Distribution Width 13 % (10-15)
[2019-04-05 15:02] LABS: Activated Partial Thrombo Time 35.8 seconds (26.0-38.0); INR 1.12 (0.82-1.09)
[2019-04-05 16:10] LABS: Albumin 3.6 g/dL (3.2-5.2); Albumin/Globulin Ratio 0.9 (1-3); BUN/Creatinine Ratio 23.8 (8-20); C Reactive Protein 216.87 mg/L (<8.01); Calcium 9.5 mg/dL (8.6-10.3); EGFR African American 120.1 (>60); EGFR Non-African American 99.2 (>60); Potassium 3.9 mmol/L (3.5-5.0); Total Bilirubin 0.7 mg/dL (0.2-1.0); Total Protein 7.6 g/dL (6.4-8.9)
[2019-04-05 16:39] VITALS: BP 155/95
== END | disposition home or self-care (01) ==
LOC: ED 13:15
DX: L03.115 Cellulitis of right lower limb (principal); Z88.5 Allergy status to narcotic agent; Z88.8 Allergy status to other drugs, medicaments and biological substances; E11.9 Type 2 diabetes mellitus without complications; E07.9 Disorder of thyroid, unspecified; I20.9 Angina pectoris, unspecified; I10 Essential (primary) hypertension; F17.210 Nicotine dependence, cigarettes, uncomplicated; Z96.651 Presence of right artificial knee joint
CPT/HCPCS: 36415; 80053; 85025; 85610; 85730; 86140; 87040; 99283; A9270-GY

== ENCOUNTER 2019-04-17 10:16 | Inpatient (IN) | payer MEDICARE ==
--- OUTSIDE RECORDS SUMMARY | 2019-04-17 10:36 | XMS REPORT | Continuity of Care Document ---
:1965 External Reference #:[id number] Author Name Desirae Rodriguez Care Team Providers Name Role Phone Lewis Benavidez MD Primary Care Physician Unavailable Payers Date Identification Numbers Payment Provider Subscriber Effective: 2018 Policy Number: [id number] [employer] Melodie Dahl PayID: [id number] [address] [place] [address] Expires: 2019 Policy Number: [id number] [facility] Medicare Solutions Melodie Dahl Group Number: [id number] [address] [address] PayID: [id number] [place] [address] Effective: 2004 Policy Number: [id number] Medicare Melodie Dahl Expires: 2015 PayID: [id number] [address] [place] [address] Effective: 2010 Policy Number: [id number] Medicaid Melodie Dahl Expires: 2019 Group Name: 1 1 [address] PayID: [id number] [place] [address] Problems Active Problems Provider Date Arthroplasty of knee Aliza Shea M.D. Onset: 04/10/2019 Localized, primary osteoarthritis Aliza Shea M.D. 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 Tobacco Use Start: Unknown Heavy tobacco smoker (more than 10 cigarettes/day) Tobacco Use Start: Unknown Never Smoked Cigars Tobacco Use Start: Unknown Never Smoked A Pipe Smokeless Tobacco Never Used Smokeless Tobacco ETOH Use Denies alcohol use ETOH Use Denies alcohol use Tobacco Use Start: Unknown Patient is a current 1 ppd x 14 years smoker, smokes every day Recreational Drug Use Denies Drug Use Tobacco Use Start: Unknown Heavy tobacco smoker (more than 10 cigarettes/day) Recreational Drug Use Denies Drug Use Smoking Status Reviewed: 04/10/19 Heavy tobacco smoker (more than 10 cigarettes/day) Exercise Type/Frequency Exercises regularly breeds and takes care of [address] [place] walks, grooming Allergies, Adverse Reactions, Alerts Active Allergies Reaction Severity Comments Date Morphine 10/03/2015 Prednisone 09/12/2018 Prednisone 10/03/2015 Morphine 09/12/2018 Codeine 10/03/2015 Codeine 09/12/2018 Invokana 09/12/2018 Medications Active Medications SIG Qnty Indications Ordering Date Provider Oxycontin 1 tab by mouth 40tabs Kit Robert, 04/07/2019 20mg Tab ER 12H every 12 hours Abuse-Det Augmentin 1 tab by mouth 20tabs Kit Robert, 04/06/2019 875-125mg twice daily x 10 MD Tablets days Percocet 1 -2 tabs by 56tabs Aliza Shea, 04/05/2019 5-325mg Tablets mouth every 4-6 M.D. hours as needed pain Famotidine 40 mg q12H 60tabs R13.10 Andrew 09/26/2018 40mg Tablets Bee Delaney Synjardy XR Take One Tablet Unknown 5-1000mg By Mouth Every Tablets ER 24HR Day Simvastatin Take One Tablet Unknown 40mg Tablets By Mouth Every Day Levothyroxine Sodium Take One Tablet Unknown By Mouth Every 150mcg Tablets Day Tazorac Apply To Affected Unknown 0.05% Gel Area S Of Left Foot Nightly Bydureon Use 1 Injection Unknown 2mg Pen Weekly Duloxetine HCL Take One Capsule Unknown 60mg Caps By Mouth Every DR Part Day Buspirone HCL Take 1 -2 Tablets Unknown 5mg Tablets By Mouth Two To Three Times A Day as Needed For Anxiety Meloxicam Take 1- 2 Tablets Unknown 7.5mg Tablets By Mouth Once A Day Invokamet 1 po bid Unknown 150-1000mg Tablets Tanzeum weekly Unknown 30mg Pen Lisinopril 1 by mouth every Unknown 2.5mg Tablets day Glipizide 1 by mouth twice Unknown 5mg Tablets a day Gabapentin 1 by mouth three Unknown 100mg Capsules times a day prn for pain Orphenadrine Citrate 1 daily as needed Unknown ER 100mg Tablets ER 12HR Simvastatin take one tablet Unknown 80mg Tablets by mouth at bedtime Cpap Unknown Device Meloxicam take 1 tab by Unknown 7.5mg Tablets mouth qdaily with food prn for pain Buspirone HCL 1 by mouth twice Unknown 5mg Tablets a day Diltiazem HCL ER 1 by mouth every Unknown 120mg day Caps ER 24HR Lantus Solostar 25 units morning, Unknown 32 units evening 100Unit/ML Solution Pen-Inject Cymbalta 1 by mouth every Unknown 60mg Caps DR day Part Levothyroxine Sodium 1 by mouth every Unknown day 175mcg Tablets History Medications Oxycontin 1 tab by mouth 40tabs Kit Robert MD 04/07/2019 - 15mg Tab ER every 12 hours 04/07/2019 12H Abuse-Det Diflucan 1 tablet by 14tabs J38.1 Andrew 09/12/2018 - 150mg mouth daily x14 Bee Delaney 01/17/2019 Tablets days Januvia 1 by mouth every Unknown - 50mg Tablets day 09/11/2015 Metformin HCL 1 by mouth twice Unknown - 1000mg a day 09/11/2015 Tablets Aspirin Ec 1 by mouth every Unknown - 81mg day 09/12/2015 Tablets Benzonatate Take One Capsule Unknown - 200mg By Mouth Three 01/11/2019 Capsules Times A Day as needed Vital Signs Date Vital Result Comment 04/10/2019 10:40am Height 61 inches 5'1" Weight 216.00 lb stated Heart Rate 76 /min BP Systolic 144 mmHg BP Diastolic 78 mmHg Respiratory Rate 12 /min Body Temperature 97.4 F Pain Level 8 BMI (Body Mass Index) 40.8 kg/m2 04/07/2019 11:10am Height 61 inches 5'1" Weight 220.00 lb Heart Rate 103 /min BP Systolic 122 mmHg BP Diastolic 82 mmHg Body Temperature 97.7 F Pain Level 8 BMI (Body Mass Index) 41.6 kg/m2 03/17/2019 2:37pm Height 61 inches 5'1" Weight [...] 5 BMI (Body Mass Index) 41.0 kg/m2 10/04/2015 11:05am Height 61 inches 5'1" Weight 268.00 lb Heart Rate 92 /min BP Systolic 122 mmHg Ra large cuff BP Diastolic 80 mmHg Ra large cuff BP Systolic Sitting 116 mmHg LA BP Diastolic Sitting 82 mmHg LA BP Systolic Standing 98 mmHg LA BP Diastolic Standing 72 mmHg LA Respiratory Rate 18 /min BMI (Body Mass Index) 50.6 kg/m2 Results Test Date Facility Test Result H/L Range Note Urinalysis Profile 03/20/2019 [facility] Urine Color Straw [address] [place] [address] [phone] Urine Appearance Clear Urine Specific [place] 1.024 Normal 1.010-1.030 Urine pH 5.0 Normal 5-9 Urine Urobilinogen Negative Negative Urine Ketones Negative Negative Urine Protein Negative Negative Urine Leukocytes Negative Negative Urine Blood Negative Negative Urine Nitrite Negative Negative Urine Bilirubin Negative Negative Urine Glucose 3+(>=500 mg/dL) Abnormal Negative Inr/Protime 03/20/2019 [facility] Inr 0.91 Normal 0.82-1.[address] [place] [address] [phone] Laboratory test 03/20/2019 [facility] Partial 34.5 Normal 26.0 -38.[address] [place] [address] Time PTT [phone] Type & Screen 03/20/2019 [facility] Patient A Negative [address] [place] [address] [phone] Antibody Screen NEGATIVE 1 UNILATERAL PRIMARY OSTEOARTHRITIS, RIGHT KNEE, EFF 2 Standard intensity warfarin therapeutic range: 2.0-3.0 High intensity warfarin therapeutic range: 2.5-3.5 Procedures Date Code Description Status 09/26/2018 24157 Fibroptic Laryngoscopy Completed 09/12/2018 42870 Fibroptic Laryngoscopy Completed 10/04/2015 33738 EKG Tracing & Interpretation Completed Encounters Type Date Location Provider Dx Diagnosis Office Visit 04/01/2019 [facility] Brad Quiros, Z96.651 Presence of right 9:52a kevin Romero M.D. artificial knee Hospitalists joint Z47.1 Aftercare following joint replacement surgery E11.9 Type 2 diabetes mellitus without complications K59.00 Constipation, unspecified Z72.0 Tobacco use Office Visit 03/31/2019 9:51a [facility] Brad Z96.651 Presence of kevin Romero M.D. right artificial Hospitalists knee joint Z47.1 Aftercare following joint replacement surgery E11.9 Type 2 diabetes mellitus without complications K59.00 Constipation, unspecified Z72.0 Tobacco use Office Visit 03/30/2019 9:49a [facility] Lidia Z96.651 Presence of kevin Romero M.D. right artificial Hospitalists knee joint Z47.1 Aftercare following joint replacement surgery E11.9 Type 2 diabetes mellitus without complications J44.9 Chronic obstructive pulmonary disease, unspecified E78.5 Hyperlipidemia, unspecified Z87.09 Personal history of other diseases of the respiratory system Office Visit 02/13/2019 Orthopedic Aliza M17.11 Unilateral primary 2:00p [facility] Shea osteoarthritis, right C.M.A. knee M25.461 Effusion, right knee M25.561 Pain in right knee Office Visit 01/31/2019 Orthopedic Shabbir Saez M17.11 Unilateral primary 10:30a [facility] Matias Warren MD osteoarthritis, AT [place] right knee Office Visit 09/26/2018 [facility] R49.0 Dysphonia 2:15p [facility] R[facility].10 Dysphagia, unspecified Office Visit 09/12/2018 2:45p [facility] R[facility].0 [facility] Polyp of vocal cord and larynx R13.10 Dysphagia, unspecified Office Visit 10/04/2015 Cardiology Qutaybeh S. E11.65 Type 2 diabetes 11:00a [facility] Cazares M.D. 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 Abscess Leg Hospitalists Except Foot Plan of Treatment Future Appointment(s):04/17/2019 9:00 am - Aliza Shea M.D. at [facility]04/10/2019 - Aliza Shea M.D.Z96.651 Presence of right artificial knee jointFollow up:Follow up: 1 weekZ47.1 Aftercare following joint replacement tengemaY25.561 Pain in right kneeM25.461 Effusion, right knee
--- OUTSIDE RECORDS SUMMARY | 2019-04-17 10:36 | XMS REPORT | Continuity of Care Document ---
:1965 External Reference #:[id number] Author Name Aliza Shea M.D. (transmitted by agent of provider Desirae Martinez) Address [address] [place] [address] [place] [address] Care Team Providers Name Role Phone Remigio Abebe MD - Family Care Team Information Staff Editor [phone] Medicine Lewis Benavidez MD - Internal Care Team Information Staff Editor Medicine Problems Active Problems Provider Date Arthroplasty of knee Aliza Shea M.D. Onset: 04/10/2019 Localized, primary osteoarthritis Aliza Shea M.D. Onset: 02/13/2019 Social History Type Date Description Comments Sex Unknown Tobacco Use Start: Unknown Heavy tobacco smoker [...] Use Denies Drug Use Smoking Status Reviewed: 04/17/19 Heavy tobacco smoker (more than 10 cigarettes/day) [...] Augmentin 1 tab by mouth 20tabs Kit Yesica, 04/06/2019 875-125mg twice daily x 10 MD [...] by mouth every Unknown 2.5mg Tablets day Levothyroxine Sodium 1 by mouth every Unknown day 175mcg Tablets Cymbalta 1 by mouth every Unknown 60mg Caps DR day Part Lantus Solostar 25 units morning, Unknown 32 units evening 100Unit/ML Solution Pen-Inject Diltiazem HCL ER 1 by mouth every Unknown 120mg day Caps ER 24HR Buspirone HCL 1 by mouth twice Unknown 5mg Tablets a day Meloxicam take 1 tab by Unknown 7.5mg Tablets mouth qdaily with food prn for pain Cpap Unknown Device Simvastatin take one tablet Unknown 80mg Tablets by mouth at bedtime Orphenadrine Citrate 1 daily as needed Unknown ER 100mg Tablets ER 12HR Gabapentin 1 by mouth three Unknown 100mg Capsules times a day prn for pain Glipizide 1 by mouth twice Unknown 5mg Tablets a day History Medications Oxycontin 1 tab by mouth 40tabs Kit Robert MD 04/07/2019 - 15mg Tab ER every 12 hours 04/07/2019 12H Abuse-Det Immunizations Description No Information Available Vital Signs Date Vital Result Comment 04/17/2019 9:16am Height 61 inches 5'1" Weight 216.00 lb BP Systolic 124 mmHg BP Diastolic 70 mmHg Body Temperature 97.5 F BMI (Body Mass Index) 40.8 kg/m2 04/10/2019 10:40am Height 61 inches 5'1" Weight 216.00 lb stated Heart Rate 76 /min BP Systolic 144 mmHg BP Diastolic 78 mmHg Respiratory Rate 12 /min Body Temperature 97.4 F Pain Level 8 BMI (Body Mass Index) 40.8 kg/m2 Results Test Date Facility Test Result H/L Range Note Urinalysis Profile 03/20/2019 [facility] Urine Color Straw [address] [place] [address] [phone] Urine Appearance Clear Urine Specific [place] 1.024 Normal 1.010-1.030 Urine pH 5.0 Normal 5-9 Urine Urobilinogen Negative Negative Urine Ketones Negative Negative Urine Protein Negative Negative Urine Leukocytes Negative Negative Urine Blood Negative Negative Urine Nitrite Negative Negative Urine Bilirubin Negative Negative Urine Glucose 3+(>=500 mg/dL) Abnormal Negative Inr/Protime 03/20/2019 [facility] Inr 0.91 Normal 0.82-1.[address] [place] [address] [phone] Laboratory test 03/20/2019 [facility] Partial 34.5 Normal 26.0 -38.[address] [address] Time PTT [phone] Type & Screen 03/20/2019 [facility] Patient A Negative [address] [address] [phone] Antibody Screen NEGATIVE 1 UNILATERAL PRIMARY OSTEOARTHRITIS, RIGHT KNEE, EFF 2 Standard intensity warfarin therapeutic range: 2.0-3.0 High intensity warfarin therapeutic range: 2.5-3.5 Procedures Date Code Description Status 03/30/2019 62601 TKR Total Knee Replacement Completed 03/30/2019 73545 TKR Total Knee Replacement Completed 03/30/2019 17580 TKR Total Knee Replacement Completed Medical Devices Description No Information Available Encounters Type Date Location Provider Dx Diagnosis Office Visit 04/01/2019 [facility] Brad Quiros Z96.651 Presence of right 9:52a kevin Romero M.D. artificial knee Hospitalists joint Z47.1 Aftercare following joint replacement surgery E11.9 Type 2 diabetes mellitus without complications K59.00 Constipation, unspecified Z72.0 Tobacco use Office Visit 03/31/2019 9:51a [facility] Brad Z96.651 Presence of kevin Romero M.D. right artificial Hospitalists knee joint Z47.1 Aftercare following joint replacement surgery E11.9 Type 2 diabetes mellitus without complications K59.00 Constipation, unspecified Z72.0 Tobacco use Office Visit 03/30/2019 9:49a [facility] Lidia Z96.651 Presence of kevin Romero M.D. right artificial Hospitalists knee joint Z47.1 Aftercare following joint replacement surgery E11.9 Type 2 diabetes mellitus without complications J44.9 Chronic obstructive pulmonary disease, unspecified E78.5 Hyperlipidemia, unspecified Z87.09 Personal history of other diseases of the respiratory system Office Visit 02/13/2019 Orthopedic Aliza Gonzalez7.11 Unilateral primary 2:00p [facility] osteoarthritis, right [facility] knee M25.461 Effusion, right knee M25.561 Pain in right knee Office Visit 01/31/2019 Justyna Gonzalez7.11 Unilateral primary 10:30a [facility] Warren MD osteoarthritis, right AT [place] knee Assessments Date Code Description Provider 04/10/2019 Z96.651 Presence of right artificial knee joint Aliza Shea M.D. 04/10/2019 Z47.1 Aftercare following joint replacement surgery Aliza Shea M.D. 04/10/2019 M25.561 Pain in right knee Aliza Shea M.D. 04/10/2019 M25.461 Effusion, right knee Aliza Shea M.D. 04/07/2019 Z96.651 Presence of right artificial knee joint Aliza Shea M.D. 04/07/2019 Z47.1 Aftercare following joint replacement surgery Aliza Shea M.D. 04/03/2019 Z47.1 Aftercare following joint replacement surgery YOON Juares 04/03/2019 Z96.651 Presence of right artificial knee joint YOON Juares 04/01/2019 Z96.651 Presence of right artificial knee joint Brad Quiros M.D. 04/01/2019 Z47.1 Aftercare following joint replacement surgery Brad Quiros M.D. 04/01/2019 E11.9 Type 2 diabetes mellitus without Brad Quiros M.D. complications 04/01/2019 K59.00 Constipation, unspecified Brad Quiros M.D. 04/01/2019 Z72.0 Tobacco use Brad Quiros M.D. 03/31/2019 Z47.1 Aftercare following joint replacement surgery BIBIANA GascaC 03/31/2019 Z96.651 Presence of right artificial knee joint JACQUI Gasca 03/31/2019 Z96.651 Presence of right artificial knee joint Brad Quiros M.D. 03/31/2019 Z47.1 Aftercare following joint replacement surgery Brad Quiros M.D. 03/31/2019 E11.9 Type 2 diabetes mellitus without Brad Quiros M.D. complications 03/31/2019 K59.00 Constipation, unspecified Brad Quiros M.D. 03/31/2019 Z72.0 Tobacco use Brad Quiros M.D. 03/30/2019 M17.11 Unilateral primary osteoarthritis, right knee YUDI HernandezC 03/30/2019 M17.11 Unilateral primary osteoarthritis, right knee Aliza Shea M.D. 03/30/2019 Z96.651 Presence of right artificial knee joint Lidia Hawthorne M.D. 03/30/2019 Z47.1 Aftercare following joint replacement surgery Lidia Hawthorne M.D. 03/30/2019 E11.9 Type 2 diabetes mellitus without Lidia Hawthorne M.D. complications 03/30/2019 J44.9 Chronic obstructive pulmonary disease, Lidia Hawthorne M.D. unspecified 03/30/2019 E78.5 Hyperlipidemia, unspecified Lidia Hawthorne M.D. 03/30/2019 Z87.09 Personal history of other diseases of the Lidia Hawthorne M.D. respiratory system 03/17/2019 M17.11 Unilateral primary osteoarthritis, right knee Aliza Shea M.D. 03/17/2019 M25.461 Effusion, right knee Aliza Shea M.D. 03/17/2019 M25.561 Pain in right knee Aliza Shea M.D. 02/13/2019 M17.11 Unilateral primary osteoarthritis, right knee Aliza Shea M.D. 02/13/2019 M25.461 Effusion, right knee Aliza Shea M.D. 02/13/2019 M25.561 Pain in right knee Aliza Shea M.D. 01/31/2019 M17.11 Unilateral primary osteoarthritis, right knee Shabbir Warren MD Plan of Treatment No Information Available Functional Status Description No Information Available Mental Status Description No Information Available Referrals Description No Information Available
--- OUTSIDE RECORDS SUMMARY | 2019-04-17 10:36 | XMS REPORT | Continuity of Care Document ---
:1965 External Reference #:[id number] Author Name Desirae Rodriguez Care Team Providers Name Role Phone Lewis Benavidez MD Primary Care Physician Unavailable Payers Date Identification Numbers Payment Provider Subscriber Effective: 2018 Policy Number: [id number] [employer] Melodie Dahl PayID: [id number] [address] [place] [address] Expires: 2019 Policy Number: [id number] [facility] Medicare Solutions Melodie Dahl Group Number: [id number] [address] [address] PayID: [id number] [place] [address] Effective: 2004 Policy Number: [id number] Medicare Melodie Dahl Expires: 2015 PayID: [id number] [address] [place] [address] Effective: 2010 Policy Number: [id number] Medicaid Melodie Dahl Expires: 2019 Group Name: 1 1 [address] PayID: [id number] [place] [address] Problems Active Problems Provider Date Localized, primary osteoarthritis Aliza Shea M.D. 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 Tobacco Use Start: Unknown Heavy tobacco smoker [...] Use Denies Drug Use Smoking Status Reviewed: 04/07/19 Heavy tobacco smoker (more than 10 cigarettes/day) Exercise Type/Frequency Exercises regularly breeds and takes care of [address] [place] walks, grooming Allergies, Adverse Reactions, Alerts Active Allergies Reaction Severity Comments Date Morphine 10/03/2015 Prednisone 09/12/2018 Prednisone 10/03/2015 Morphine 09/12/2018 Codeine 10/03/2015 Codeine 09/12/2018 Invokana 09/12/2018 Medications Active Medications SIG Qnty Indications Ordering Date Provider Oxycontin 1 tab by mouth 40tabs Kit Robert, 04/07/2019 15mg Tab ER 12H every 12 hours Abuse-Det [...] Unknown 5mg Tablets a day History Medications Diflucan 1 tablet by 14hussain J38.1 Andrew 09/12/2018 - 150mg mouth daily x14 Bee Delaney 01/17/2019 Tablets days Januvia 1 by mouth every Unknown - 50mg Tablets day 09/11/2015 Metformin HCL 1 by mouth twice Unknown - 1000mg a day 09/11/2015 Tablets Aspirin Ec 1 by mouth every Unknown - 81mg day 09/12/[address] Benzonatate Take One Capsule Unknown - 200mg By Mouth Three 01/11/2019 Capsules Times A Day as needed Vital Signs Date Vital Result Comment 04/07/2019 11:10am Height 61 inches 5'1" Weight [...] Result H/L Range Note Urinalysis Profile 03/20/2019 [facility] Urine Color Straw [address] [place] [address] [phone] Urine Appearance Clear Urine Specific [place] 1.024 Normal 1.010-1.030 Urine pH 5.0 Normal 5-9 Urine Urobilinogen Negative Negative Urine Ketones Negative Negative Urine Protein Negative Negative Urine Leukocytes Negative Negative Urine Blood Negative Negative Urine Nitrite Negative Negative Urine Bilirubin Negative Negative Urine Glucose 3+(>=500 mg/dL) Abnormal Negative Inr/Protime 03/20/2019 [facility] Inr 0.91 Normal 0.82-1.[address] [place] [address] [phone] Laboratory test 03/20/2019 [facility] Partial 34.5 Normal 26.0 -38.[address] [place] [address] Time PTT [phone] Type & Screen 03/20/2019 [facility] Patient A Negative [address] [place] [address] [phone] Antibody Screen NEGATIVE 1 UNILATERAL PRIMARY OSTEOARTHRITIS, RIGHT KNEE, EFF 2 Standard intensity warfarin therapeutic range: 2.0-3.0 High intensity warfarin therapeutic range: 2.5-3.5 Procedures Date Code Description Status 09/26/2018 39260 Fibroptic Laryngoscopy Completed 09/12/2018 91053 Fibroptic Laryngoscopy Completed 10/04/2015 81647 EKG Tracing & Interpretation Completed Encounters Type Date Location Provider Dx Diagnosis Office Visit 04/01/2019 [facility] Brad Quiros Z96.651 Presence of right 9:52a kevin Romero M.D. artificial knee Hospitalists joint Z47.1 Aftercare following joint replacement surgery E11.9 Type 2 diabetes mellitus without complications K59.00 Constipation, unspecified Z72.0 Tobacco use Office Visit 03/31/2019 9:51a [facility] Brad Z96.651 Presence of kevin Romero M.D. right artificial Hospitalists knee joint Z47.1 Aftercare following joint replacement surgery E11.9 Type 2 diabetes mellitus without complications K59.00 Constipation, unspecified Z72.0 Tobacco use Office Visit 03/30/2019 9:49a [facility] Lidia Z96.651 Presence of kevin Romero M.D. [...] right knee Office Visit 01/31/2019 Orthopedic Shabbir M M17.11 Unilateral primary 10:30a [facility] Warren MD osteoarthritis, AT [place] right knee Office Visit 09/26/2018 [facility] R49.0 [facility] 2:[facility] Dysphagia, unspecified Office Visit 09/12/2018 2:45p [facility], R49.0 [facility] J[facility]1 Polyp of vocal cord and larynx R13.10 Dysphagia, unspecified Office Visit 10/04/2015 Cardiology Qutaybgarcía S. E11.65 Type 2 diabetes 11:00a [facility] Cazares M.D. 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 Cervical W/O Myelopathy Office Visit 01/31/2009 12:45a [facility] Mary Lew, 682.6 Cellulitis & Assoc,pc MRafael Abscess Leg Hospitalists Except Foot Office Visit 01/30/2009 1:30a [facility] Mary Lew 682.6 Cellulitis & Assoc,pc MRafael Abscess Leg Hospitalists Except Foot Office Visit 01/29/2009 1:30a [facility] Mary Lew 682.6 Cellulitis & Assoc,pc MYaraDYara Abscess Leg Hospitalists Except Foot Office Visit 01/28/2009 12:15a [facility] Brad 682.6 Cellulitis & Assoc,pc Bee Quiros Abscess Leg Hospitalists Except Foot Plan of Treatment Future Appointment(s):04/10/2019 10:15 am - Aliza Shea M.D. at [facility]04/07/2019 - Aliza Shea M.D.Z96.651 Presence of right artificial knee jointFollow up:Follow up: 3 daysZ47.1 Aftercare following joint replacement surgery
[2019-04-17] MEDS ORDERED: Scopolamine 1.5 mg* PATCH TRANSDERM PRN (10:54)
[2019-04-17] MEDS ORDERED: Docusate CAP* 100 MG PO PRN (11:23)
[2019-04-17] MEDS ORDERED: Senna TAB 8.6 mg* TAB PO PRN (11:23)
[2019-04-17] MEDS ORDERED: Magnesium Hydroxide LIQ* 30 ML UDC PO PRN (11:23)
[2019-04-17] MEDS ORDERED: Polyethylene Glycol 3350* 17 GM PACKET PO PRN (11:23)
[2019-04-17] MEDS ORDERED: Ondansetron INJ* 2 MG/ML VIAL IV PRN (11:24)
[2019-04-17] MEDS ORDERED: Ondansetron ODT TAB* 4 MG SL PRN (11:24)
[2019-04-17] MEDS ORDERED: diPHENhydraMINE IV* 50 MG/ML 1 ml VIAL (BENADRYL) IV PRN (11:24)
[2019-04-17] MEDS ORDERED: diPHENhydraMINE LIQ* 12.5 MG/5 ML UDC PO PRN (11:24)
[2019-04-17] MEDS: oxyCODONE/Acetamin 5/325 MG* TAB PO PRN ×3 (11:47→21:58)
[2019-04-17] MEDS: Morphine TAB Extended Release (*) 15 MG TAB.ER PO SCH ×2 (11:48→23:12)
[2019-04-17 12:20] LABS: C Reactive Protein 17.92 mg/L (<8.01)
[2019-04-17] MEDS ORDERED: Dextrose 50% Syringe 50 ML* 25 GM/50 ML SYRINGE IV PUSH PRN (12:37)
[2019-04-17] MEDS ORDERED: Buffered Lidocaine 1% SYRIN* 1 ML/SYRINGE INTRADERM ONE (12:54)
[2019-04-17] MEDS ORDERED: Vancomycin per Pharmacy* NOTE FOLLOW UP SCH (13:00)
[2019-04-17] MEDS ORDERED: Vancomycin(*) 1,750 MG in NS 0.9% 500 ML* 500 ML IVPB ONE (13:00)
[2019-04-17 13:11] LABS: BUN/Creatinine Ratio 23.6 (8-20); Calcium 9.6 mg/dL (8.6-10.3); EGFR African American 102.9 (>60); EGFR Non-African American 85.1 (>60); Potassium 4.3 mmol/L (3.5-5.0)
[2019-04-17 13:16] LABS: ABS Basophils 0.1 10^3/ul (0-0.2); ABS Eosinophils 0.1 10^3/ul (0-0.6); ABS Lymphocytes 2.2 10^3/ul (1.0-4.8); ABS Monocytes 0.7 10^3/ul (0-0.8); ABS Neutrophils 15.5 10^3/ul (1.5-7.7); Eosinophil % 0.4 %; Hematocrit 48 % (35-47); Hemoglobin 16.1 g/dL (12.0-16.0); Lymphocyte % 11.9 %; Mean Corpuscular HGB Conc 34 g/dL (31-36); Mean Corpuscular Hemoglobin 31 pg (27-31); Mean Corpuscular Volume 91 fL (80-97); Mean Platelet Volume 6.7 fL (7.4-10.4); Nucleated Red Blood Cells % 0.1; Platelet Count 695 10^3/uL (150-450); Red Blood Count 5.25 10^6 /uL (3.70-4.87); Red Cell Distribution Width 14 % (10-15); White Blood Count 18.5 10^3/uL (3.5-10.8)
[2019-04-17] MEDS: Morphine 4 MG/ML VIAL (1 ml) 4 MG/ML VIAL IV PRN (13:53)
[2019-04-17] MEDS ORDERED: Cefepime 2 GM in Dextrose(*) 2 GM/50 ML BAG IV SCH ×2 (14:00→16:00)
--- NOTE | 2019-04-17 14:16 | HP ---
CC: Dr. Benavidez; Dr. Shea; Dr. Velasco * HISTORY AND PHYSICAL: DATE OF ADMISSION: 04/17/19 PRIMARY CARE PROVIDER: Dr. Benavidez. OTHER PROVIDERS: Dr. Shea, Dr. Velasco. ATTENDING PHYSICIAN: Dr. Quiros * (dictated by YOON Roque). CHIEF COMPLAINT: Purulent drainage from surgical incision site status post Navio-assisted right total knee on 03/30/19. HISTORY OF PRESENT ILLNESS: Ms. Dahl is a 54-year-old female with a past medical history of diabetes, hyperlipidemia, hypothyroidism who presented at the suggestion of Dr. Shea from her postop right total knee followup appointment. Her sutures were being removed and there was purulent drainage noted to have come from the incision site over the tibia. The patient states that she went to the ER on 04/05/19 with complaints of erythema to the right lower extremity. She was assessed for DVT which was negative. She was placed on Augmentin for presumed cellulitis. The patient notes that she finished these antibiotics this morning and that the erythema quickly resolved. She has one large incision site with 4 small incision sites, which are all sutured. She notes that there has been no drainage or erythema as of recently. She denies swelling. She does complain of intermittent pain. Currently, she rates her pain as a 7/10. She describes it as stabbing. She notes that it is worse with bending. She states there is no radiation of pain. Due to concern for a postoperative infection, the patient was directly admitted to the hospital and the hospitalist team was asked to evaluate the patient. PAST MEDICAL HISTORY: 1. Diabetes mellitus. 2. Hyperlipidemia. 3. Hypothyroidism. 4. Depression. 5. Anxiety. PAST SURGICAL HISTORY: Right total knee arthroplasty on 03/30/19, hernia repair x3, total thyroidectomy, hysterectomy, tonsillectomy. HOME MEDICATIONS: 1. Acetaminophen 1000 mg p.o. q.6 hours p.r.n. pain. 2. Apixaban 2.5 mg p.o. q.12 hours. 3. Buspirone 5 mg p.o. b.i.d. 4. Docusate 100 mg p.o. b.i.d. 5. Duloxetine 60 mg p.o. at 1800. 6. Empagliflozin/metformin 01/1000 one tab p.o. b.i.d. 7. Exenatide microspheres 2 mg subcu weekly. 8. Levothyroxine 175 mcg p.o. q.a.m. 9. Morphine 15 mg p.o. q.12 hours. 10. Oxycodone/acetaminophen 5/325 two tabs p.o. q.4 hours p.r.n. pain, MDD 10. 11. Scopolamine 1.5 mg patch, 1 patch transdermal q.72 hours p.r.n. nausea/ vomiting. 12. Simvastatin 40 mg p.o. at 1800. 13. Anoro Ellipta 1 inhalation q.a.m. ALLERGIES: BEE VENOM, anaphylaxis; CANAGLIFLOZIN, weakness; CODEINE, PREDNISONE , agitation. FAMILY HISTORY: Mother is still living and has a past history of CVA and VA. Father has history of diabetes mellitus, CHF. He is due to a fall leading to bleed. SOCIAL HISTORY: The patient smokes half a pack per day. She uses alcohol rarely, less than weekly. She works at [employer]. She lives with her and son as well as her mother. In the event that she is unable to make her own medical decisions, she has appointed her , Jeff Rodriguez, to be her surrogate decision maker. REVIEW OF SYSTEMS: A 10-point review of systems has been performed and all the pertinent positives and negatives are in the HPI. All other systems are negative. PHYSICAL EXAMINATION GENERAL: Ms. Dahl is a well-developed, well-nourished, obese, middle-aged white woman who is sitting up in bed. She is tearful and appears frustrated. She is in no acute distress. VITAL SIGNS: Temperature 98.6 temporal, heart rate 91, respiratory rate 20, oxygen saturation 95% on room air, blood pressure 132/72. HEENT: Visual suggs grossly intact. PERRL. EOMI. Nonicteric sclerae. Hearing grossly intact. Oral mucous membranes are moist without lesions. Tongue is at midline. The pharynx is clear. RESPIRATORY: Symmetrical chest expansion without use of accessory muscles. Lungs clear to auscultation bilaterally without rhonchi, wheezes, or rubs. CARDIOVASCULAR: Regular rate and rhythm with S1 and S2 present, without murmurs , rubs, clicks, or gallops. There is no JVD. ABDOMEN: Obese. Bowel sounds noted in all quadrants. The abdomen is soft without tenderness to palpation. There is ventral hernia noted. MUSCULOSKELETAL: Upper extremities with full range of motion without pain or deformities. Left lower extremity within normal limits. Right lower extremity with clean, dry, and intact dressing. The patient has 2 small superior and 2 small inferior incision sites as well as one large incision site that overlies the knee. There is a slight amount of erythema. The most distal incision site has scant purulent discharge that is minimally expressed when squeezing. There is no edema. Sutures are in place over all incision sites. NEURO: The patient is awake. She is alert and oriented x3 with cranial nerves grossly intact. ASSESSMENT AND PLAN: Ms. Dahl is a 54-year-old female with a past medical history of diabetes, hyperlipidemia, hypothyroidism, status post Navio right total knee arthroplasty on 03/30/19, who presented to her ortho postop followup appointment and was noted to have purulent drainage from her distal surgical site. The patient will be admitted to inpatient for: 1. Postoperative infection. The patient had a Navio right total knee arthroplasty on 03/30/19. At her postop appointment, she was noted to have purulent drainage after suture removal. She was sent for direct admission to the hospital. She is noted to have been treated with Augmentin for recent cellulitis, her last dose was this morning. Cultures from the incision site have been obtained and sent. The patient will be started on vanco. Infectious Disease has been consulted for further recommendations. The patient is able to eat at this point, but will be made n.p.o. after midnight. Her apixaban has been held in the setting of planned washout in the a.m. with Dr. Shea. According to the RCRI, the patient scores 0 points and is Class I Risk with a 3.9% 30-day risk of , VA, or cardiac arrest. She is currently medically optimized for surgery planned for tomorrow. 2. Diabetes mellitus. We will hold the patient's home medications, Bydureon and Synjardy. The patient will be started on lispro sliding scale with fingersticks a.c. 3. Hypothyroidism. Continue home levothyroxine. 4. Hyperlipidemia. Continue home atorvastatin. 5. Anxiety and depression. Continue home medications, duloxetine and buspirone. 6. Tobacco abuse. The patient was offered nicotine patch and accepted. This has been ordered. 7. DVT prophylaxis: The patient was previously on apixaban, this will be held as there are plans for a washout in the a.m. with Dr. Shea. Further prophylaxis to be determined by Orthopedics. TIME SPENT: Approximately 60 minutes was spent on this admission, greater than half that time was spent with the patient obtaining history, performing physical , and reviewing the plan of care. The case has been reviewed with my attending, Dr. Quiros, who is in agreement with the plan of care. YOON MORALES [id number]/CPS #: [id number]
[2019-04-17] MEDS ORDERED: Dextrose 50% VIAL 50 ml IV PUSH PRN (15:31)
[2019-04-17] MEDS: Nicotine PATCH 14 MG/24 HR* PATCH TRANSDERM SCH (16:24)
--- NOTE | 2019-04-17 16:48 | CONS ---
ORTHOPEDIC CONSULT NOTE: DATE OF ADMISSION: To orthopedic service is 04/17/19. DATE OF CONSULT: 04/17/19 CHIEF COMPLAINT: Right leg wound infection. HISTORY OF PRESENT ILLNESS: Ms. Dahl is a 54-year-old female who had uncomplicated right total knee arthroplasty on 03/30/19. Postoperatively, she developed significant swelling and hematoma of the knee and calf. We did treat her for hematoma versus cellulitis. The patient had Augmentin for antibiotics. The patient followed up today on 04/17/19 in the clinic as an outpatient with improvement in her pain, swelling, and erythema. Unfortunately after suture removal of the tibial pin site wound incision, there was a significant amount of purulent drainage. PHYSICAL EXAM: Right lower extremity: The patient's incisions look well healed. Upon suture removal of the pin site of the tibia, there is purulent drainage that is salmon-colored. The knee incision has no drainage. There is no erythema around the knee. Knee range of motion is 5 to 80 degrees of flexion with minimal pain. She does have swelling of the calf and is distally neurovascularly intact. She is afebrile today with stable vitals. ASSESSMENT AND PLAN: Ms. Dahl is a 54-year-old female now almost 3 weeks after 03/30/19 right total knee arthroplasty. She does have a tibial pin site wound infection. The patient understands this may or may not involve the knee joint. The right knee was sterilely prepped with Betadine. 5 cc of hematoma like fluid which did not resemble the purulence from the tibial pin site was obtained and this will be sent for cell count, cultures, and sensitivities. The patient will not have Eliquis blood thinner today. Her last dose was in the evening of 04/16/19. We will hold the Eliquis. The nurse coordinator for [place] was contacted and she is directly admitted to [facility]. She will be seen by Infectious Disease as well as the hospitalist group. We will plan for 04/18/19 open irrigation and debridement of the right tibial wound infection. We will of course follow the culture results and cell count from the knee aspiration. The patient understands my plan for open washout of the wound infection. We may or may not proceed to an open I and D of the right knee joint with or without polyethylene exchange. The patient will be n.p.o. after midnight. She will be placed on IV vancomycin. Multiple cultures have been obtained. Please see full H and P admission note by YOON Jacob. [id number]/[facility] #: [id number] [facility]
[2019-04-17] MEDS: Cefepime 2 GM in Dextrose(*) 2 GM/50 ML BAG IV SCH (17:23)
[2019-04-17] MEDS: DULoxetine DR CAP* 60 MG CAP.DR PO SCH (17:50)
[2019-04-17] MEDS: Atorvastatin* 20 MG TAB PO SCH (17:50)
[2019-04-17] MEDS: Insulin LISPRO* 1 UNITS UNIT SUBCUT SCH ×2 (17:50→21:58)
--- NOTE | 2019-04-17 19:17 | HP ---
HISTORY AND PHYSICAL: DATE OF ADMISSION: 04/17/19 DATE OF OFFICE VISIT: 04/17/19 DATE OF SURGERY: 04/18/19 ATTENDING SURGEON: Dr. Aliza Shea.* (DICTATED BY YOON SHAH) PROCEDURE: Right knee wound infection washout. CHIEF COMPLAINT: Right knee incision drainage. HISTORY OF PRESENT ILLNESS: Ms. Dahl is a 54-year-old female, who is 18 days postop from right total knee replacement with a Navio system on 03/30/19. The postoperative course has been significant for a trip to the ER where an ultrasound was done to rule out a DVT. She was placed on Augmentin at that point due to the erythema on her right lower leg and the thought of possible cellulitis. She completed her course of Augmentin this morning on 04/17/19. She presented to the office for postop followup and suture removal. The incision looked good, but upon removal of stitches of the distal incision site, purulent discharge from the wound was expressed. She denies any increased significant pain in the right knee and the right knee was aspirated of what appeared to be just blood and was sent off for labs. She denies any fevers, chills, or night sweats. She has been having some nausea and vomiting that she thought was from the pain medication. She denies any drainage from the incision prior to that and the drainage that occurred today in the office was the first time anything had been expressed from the incision site. PAST MEDICAL HISTORY: Hypercholesterolemia, depression, anxiety, type 2 diabetes. PAST SURGICAL HISTORY: Right knee total arthroplasty on 03/30/19, hernia repair x3, cholecystectomy, thyroidectomy, and 2 C-sections. MEDICATIONS: 1. Buspirone HCl 5 mg 1 p.o. twice daily. 2. Bydureon 2 mg 1 injection weekly. 3. Cymbalta 60 mg 1 p.o. daily. 4. Diltiazem HCl ER 120 mg 1 p.o. daily. 5. Duloxetine HCl 60 mg 1 p.o. daily. 6. Famotidine 40 mg q.12 hours. 7. Gabapentin 100 mg 1 p.o. t.i.d. p.r.n. for pain. 8. Glipizide 5 mg 1 p.o. twice daily. 9. Invokamet 150/1000 mg 1 p.o. b.i.d. 10. Lantus SoloSTAR 100 units/mL, 25 units in the morning, 32 units in the evening. 11. Levothyroxine sodium 175 mcg 1 p.o. daily. 12. Levothyroxine sodium 150 mcg 1 p.o. daily. 13. Lisinopril 2.5 mg 1 p.o. daily. 14. Meloxicam 7.5 mg 1 to 2 tabs p.o. daily. 15. Orphenadrine citrate ER 100 mg 1daily p.r.n. 16. OxyContin 20 mg 1 tab p.o. every 12 hours p.r.n. 17. Percocet 5/325 mg 1 to 2 tabs p.o. every 4 to 6 hours p.r.n. for pain. 18. Simvastatin 80 mg 1 tablet p.o. daily. 19. Xigduo XR 01/1000 mg 1 p.o. daily. 20. Tanzeum 30 mg weekly. 21. Trianex 0.05% apply to affected areas of left foot nightly as needed. ALLERGIES: PREDNISONE, MORPHINE, CODEINE, and INVOKANA. FAMILY HISTORY: Positive for diabetes, cardiovascular disease, hypertension, stroke, and rheumatoid arthritis. SOCIAL HISTORY: The patient lives at home with her spouse. She is disabled, but she works part-time at [employer]. She is a smoker. She smokes 1 pack per day x24 years. She denies any recreational drug use or alcohol use. She is normally active with swimming and kayaking and she is ambidextrous. REVIEW OF SYSTEMS: General: Negative for fevers, chills, night sweats, unexplained weight loss or gain. No known anesthesia problems. HEENT: Negative for headache, lightheadedness, syncopal episodes, visual changes. Integumentary: Positive for right knee incision drainage. Cardiothoracic: Negative for hypertension, chest pain, palpitations, edema. Respiratory: Negative for shortness of breath with exertion, chronic cough, wheezing. GI: Positive for nausea and vomiting. Negative for diarrhea, constipation, GERD. : Negative for nocturia, urinary frequency, urgency, history of UTIs, or kidney problems. Musculoskeletal: Positive for right knee pain. Positive for herniated disk at C6- C7. Negative for chronic or intermittent back pain. No history of fractures. Psychiatric: Positive for anxiety and depression. Neurologic: Negative for paresthesias, numbness, history of seizure, stroke, or poor balance. Endocrine: Positive for diabetes. Positive for thyroid issues. Hematologic: Negative for easy bruising, anemia, bleeding disorders, or history of DVT or PE. ID: Negative for history of MRSA, hep C, or HIV. PHYSICAL EXAMINATION GENERAL: Well-developed, well-nourished 54-year-old female, in no acute distress. Gait is antalgic. Balance is decreasing with leg stance. VITAL SIGNS: Height 61 inches, weight 216 pounds, BP is 124/70, temperature is 97.5, BMI is 40.8. HEENT: Normocephalic, atraumatic. PERRLA. Extraocular movements intact. Throat is clear. NECK: Supple. No palpable lymph nodes. PULMONARY: Lungs are clear to auscultation bilaterally. No wheezes, rales, or rhonchi. CARDIO: Regular rate and rhythm. S1 and S2 normal. No murmurs, rubs, or gallops. No edema. ABDOMEN: Positive bowel sounds. Soft and nontender. NEUROLOGIC: A and O x3. Cranial nerves II through XII intact. Sensation is intact to light touch. MUSCULOSKELETAL: Right lower extremity: The patient has 2 smaller proximal incisions as well as normal total knee longer incision followed by 2 smaller distal incisions from the Navio. The first smaller distal incision had purulent discharge upon removing of the sutures today and more purulent discharge was able to be expressed from the incision. There was mild erythema surrounding the incisions. There was no tenderness to palpation around the incisions or along the joint line. She had about 5 to 80 degrees of range of motion with some pain. She had 5/5 ankle dorsiflexion and plantarflexion strength. Her calf was soft and nontender. She had full sensation to light touch distally and a 2+ palpable DP pulse. IMPRESSION: Right knee wound infection. PLAN: The patient is scheduled to undergo a right knee wound infection washout with Dr. Shea on 04/18/19. Dr. Shea told the patient to stop her Eliquis and she went straight from the office to the hospital for a direct admit to have lab work done. The joint aspiration was also sent to the lab for evaluation and she will be placed on IV antibiotics prior to surgery tomorrow. Dr. Shea discussed the procedure as well as the risks and benefits with her and the patient elected to proceed. She will return to the office 10 to 14 days postop for followup and suture removal and she will be discharged from the hospital with medication for postoperative pain management and I-STOP will be performed prior to prescribing the pain medication. YOON SHAH [id number]/[facility] #: [id number] NILESH
[2019-04-17] MEDS: busPIRone TAB* 5 MG PO SCH (21:58)
[2019-04-17] MEDS: Vancomycin(*) 1,250 MG in NS 0.9% 250 ML* 250 ML IVPB SCH (21:59)
[2019-04-18] MEDS: oxyCODONE/Acetamin 5/325 MG* TAB PO PRN ×3 (02:27→21:32)
[2019-04-18] MEDS: Cefepime 2 GM in Dextrose(*) 2 GM/50 ML BAG IV SCH (04:58)
[2019-04-18] MEDS: Morphine 4 MG/ML VIAL (1 ml) 4 MG/ML VIAL IV PRN ×3 (05:09→23:43)
[2019-04-18] MEDS: Vancomycin(*) 1,250 MG in NS 0.9% 250 ML* 250 ML IVPB SCH ×2 (05:40→13:20)
[2019-04-18] MEDS ORDERED: Lactated Ringers 1000 ML Bag* 1,000 ML IV SCH (06:00)
[2019-04-18] MEDS: Levothyroxine TAB* 175 MCG TAB PO SCH (06:30)
[2019-04-18 06:54] LABS: INR 1.05 (0.82-1.09)
[2019-04-18 07:16] LABS: BUN/Creatinine Ratio 26.2 (8-20); EGFR African American 115.8 (>60); EGFR Non-African American 95.7 (>60); Potassium 4.2 mmol/L (3.5-5.0)
--- NOTE | 2019-04-18 07:51 | PN ---
Progress Note - Progress Note Date of Service: 04/18/19 SOAP: Subjective: Pt. is alert, reports moderate right knee pain. Objective: Vital Signs: Temp Pulse Resp BP Pulse Ox 97.9 F 79 18 107/64 92 04/18/19 03:28 04/18/19 03:28 04/18/19 06:32 04/18/19 03:28 04/18/19 03:28 Laboratory Results - last 24 hr 04/17/19 04/17/19 04/17/19 11:45 11:45 13:05 WBC 18.5 H RBC 5.25 H Hgb 16.1 H Hct 48 H MCV 91 MCH 31 MCHC 34 RDW 14 Plt Count 695 H D MPV 6.7 L Neut % (Auto) 83.7 Lymph % (Auto) 11.9 [place] % (Auto) 3.7 Eos % (Auto) 0.4 Baso % (Auto) 0.3 Absolute Neuts (auto) 15.5 H Absolute Lymphs (auto) 2.2 Absolute Monos (auto) 0.7 Absolute Eos (auto) 0.1 Absolute Basos (auto) 0.1 Absolute Nucleated RBC 0.0 Nucleated RBC % 0.1 ESR 19 INR (Anticoag Therapy) Sodium 135 Potassium 4.3 Chloride 99 L Carbon Dioxide 24 Anion Gap 12 H BUN 17 Creatinine 0.72 Est GFR ( Amer) 102.9 Est GFR (Non-Af Amer) 85.1 BUN/Creatinine Ratio 23.6 H Glucose 201 H POC Glucose (mg/dL) Calcium 9.6 C-Reactive Protein 17.92 H Blood Type 04/17/19 04/17/19 04/18/19 16:26 20:13 06:39 WBC RBC Hgb Hct MCV MCH MCHC RDW Plt Count MPV Neut % (Auto) Lymph % (Auto) [place] % (Auto) Eos % (Auto) Baso % (Auto) Absolute Neuts (auto) Absolute Lymphs (auto) Absolute Monos (auto) Absolute Eos (auto) Absolute Basos (auto) Absolute Nucleated RBC Nucleated RBC % ESR INR (Anticoag Therapy) Sodium 134 L Potassium 4.2 Chloride 101 Carbon Dioxide 26 Anion Gap 7 BUN 17 Creatinine 0.65 Est GFR ( Amer) 115.8 Est GFR (Non-Af Amer) 95.7 BUN/Creatinine Ratio 26.2 H Glucose 167 H POC Glucose (mg/dL) 171 H 184 H Calcium 9.0 C-Reactive Protein Blood Type 04/18/19 04/18/19 06:39 06:39 WBC RBC Hgb Hct MCV MCH MCHC RDW Plt Count MPV Neut % (Auto) Lymph % (Auto) [place] % (Auto) Eos % (Auto) Baso % (Auto) Absolute Neuts (auto) Absolute Lymphs (auto) Absolute Monos (auto) Absolute Eos (auto) Absolute Basos (auto) Absolute Nucleated RBC Nucleated RBC % ESR INR (Anticoag Therapy) 1.05 Sodium Potassium Chloride Carbon Dioxide Anion Gap BUN Creatinine Est GFR ( Amer) Est GFR (Non-Af Amer) BUN/Creatinine Ratio Glucose POC Glucose (mg/dL) Calcium C-Reactive Protein Blood Type A Negative RLE - incisions intact, distal tibial pin incision without active drainage. moderate swelling of knee and calf. distally nvi. Assessment: 54 yo F 2 weeks s/p RTKA with infection Plan: Leukocytosis with elevated crp. Cell count from knee aspiration is 39,000. This indicates infection of RTKA. Plan npo for open I and D of RTKA and tibial pin sites- discussed with the patient at the bedside. Hospitalist and ID consults.
[2019-04-18] MEDS: Tiotropium Brom/Olodaterol MDI INH SCH (08:02)
[2019-04-18] MEDS: busPIRone TAB* 5 MG PO SCH ×2 (08:03→21:32)
[2019-04-18 08:29] LABS: ABS Basophils 0.1 10^3/ul (0-0.2); ABS Eosinophils 0.3 10^3/ul (0-0.6); ABS Lymphocytes 2.6 10^3/ul (1.0-4.8); ABS Neutrophils 9.1 10^3/ul (1.5-7.7); Eosinophil % 2.4 %; Hematocrit 45 % (35-47); Lymphocyte % 19.9 %; Mean Corpuscular HGB Conc 34 g/dL (31-36); Mean Corpuscular Hemoglobin 31 pg (27-31); Mean Corpuscular Volume 92 fL (80-97); Mean Platelet Volume 7.1 fL (7.4-10.4); Platelet Count 653 10^3/uL (150-450); Red Blood Count 4.83 10^6 /uL (3.70-4.87); Red Cell Distribution Width 14 % (10-15)
[2019-04-18] MEDS: Nicotine PATCH 14 MG/24 HR* PATCH TRANSDERM SCH (10:28)
[2019-04-18] MEDS: Insulin LISPRO* 1 UNITS UNIT SUBCUT SCH ×4 (10:29→21:32)
[2019-04-18] MEDS: Morphine TAB Extended Release (*) 15 MG TAB.ER PO SCH ×2 (10:57→23:39)
[2019-04-18] MEDS ORDERED: Midazolam* 1 MG/ML 2 ML VIAL (2 MG) ONE (11:27)
[2019-04-18] MEDS ORDERED: fentaNYL* 50 MCG/ML 2 ML VIAL (100 MCG VIAL) ONE ×3 (11:27→17:02)
[2019-04-18] MEDS ORDERED: Rocuronium* 10 MG/ML VIAL ONE (11:27)
[2019-04-18] MEDS ORDERED: KETAMINE HCL* 50 MG/ML 10 ML VIAL ONE (11:27)
[2019-04-18] MEDS ORDERED: Lidocaine 2% PF * 5 ML VIAL ONE (11:27)
[2019-04-18] MEDS ORDERED: Propofol* 10 MG/ML 20 ML BTL ONE (11:27)
[2019-04-18] MEDS ORDERED: HYDROmorphone INJ1* 1 MG/ML SYRINGE ONE (11:27)
[2019-04-18] MEDS ORDERED: ROPIVACAINE 5 MG/ML 30 ML BTL (0.5%) ONE (13:11)
[2019-04-18] MEDS ORDERED: Bacitracin INJECTION* 50,000 UNITS ONE (13:11)
[2019-04-18] MEDS ORDERED: Levalbuterol 0.63MG/3ML NEB* UNIT OF USE INH ONE ×2 (13:16→13:17)
--- NOTE | 2019-04-18 14:34 | CONS ---
CONSULTATION REPORT: DATE OF CONSULT: 04/18/19 PRIMARY CARE PROVIDER: Dr. Lewis Benavidez. PROVIDER REQUESTING CONSULTATION: YOON Acevedo. CONSULTING SERVICE: Infectious Disease. PROVIDER: [place] Villegas NP. MY ATTENDING PROVIDER: Dr. Joey Velasco.* (DICTATED BY FLORIDA VILLEGAS NP) REASON FOR CONSULTATION: Septic right prosthetic knee. IMPRESSION: 1. Septic right prosthetic knee, status post right total knee arthroplasty on 03/30/19. Presented to the emergency room on 04/05/19 with erythema and was started on Augmentin for possible soft tissue infection. She completed a course of Augmentin and had a negative Doppler. She presented to Dr. Shea's office for followup, and was found to have purulent drainage from the distal incision site, a joint aspiration in the office revealed a white count of 39,490 , 97% neutrophils, 2% lymphocytes, 1% monocytes. When she presented to the hospital, she was started on cefepime and vancomycin. She is scheduled to have a washout of her knee with poly liner exchange later today. She has been afebrile, mild leukocytosis today, improved from yesterday. 3. Diabetes mellitus type 2. 4. Thyroid cancer, status post thyroidectomy, on levothyroxine. RECOMMENDATIONS: Recommend continuing cefepime and vancomycin until culture results are back, at which point we will be able to narrow the antibiotics. Currently there is no growth in the cultures. She will likely require an extended course of IV antibiotics. We will continue to follow along and further recommendations will be based on the patient's clinical course and culture results. HISTORY OF PRESENT ILLNESS: Ms. Dahl is a 54-year-old female with past medical history significant for hyperlipidemia, depression, anxiety, diabetes mellitus type 2, thyroid cancer, endometrial cancer, who initially presented for a right total knee replacement using the Navio system on 03/30/19. She was doing well postoperatively. She presented to the emergency room on 04/05/19 and had an ultrasound to rule out a DVT. At that time, she was placed on Augmentin due to erythema on the lower portion of her incision for a possible cellulitis. She completed the course of Augmentin on 04/17/19. She presented to Dr. Shea's office for a postoperative follow up appointment and suture removal. The incision looked good, but upon removal of the sutures from the distal incision site, purulent drainage was expressed from the wound. She denied any increase in the right knee pain, fevers, or chills. She is reporting sweats overnight since surgery. Additionally, she had been reporting nausea since going home from the hospital which she attributed to the pain medication. Denies diarrhea. Denies urinary symptoms such as urgency, frequency, or dysuria. She endorses some vaginal itching at this time. She suspects this is secondary to antibiotics. She denies any rash or recent travel. She reports edema to the right leg. She was sent as a direct admission from Dr. Shea's office to the hospital for a right knee washout. PAST MEDICAL HISTORY: 1. Hyperlipidemia. 2. Depression. 3. Anxiety. 4. Diabetes mellitus type 2. 5. Hypothyroidism. 6. Thyroid cancer. 7. Endometrial cancer. PAST SURGICAL HISTORY: 1. Status post right total knee arthroplasty on 03/30/19. 2. Status post hernia repair x3. 3. Status post cholecystectomy. 4. Status post total thyroidectomy. 5. Status post section x2. 6. Status post hysterectomy. 7. Status post tonsillectomy. MEDICATIONS: Home medications: 1. Bupropion 5 mg by mouth twice daily. 2. Bydureon 2 mg subcutaneous weekly. 3. Cymbalta 60 mg by mouth daily. 4. Diltiazem 120 mg by mouth daily. 5. Duloxetine 60 mg by mouth daily. 6. Famotidine 40 mg by mouth q.12 hours. 7. Gabapentin 100 mg by mouth three times daily as needed for pain. 8. Glipizide 5 mg by mouth twice daily. 9. Invokamet 150/1000 mg 1 by mouth twice daily. 10. Lantus SoloSTAR 25 units subcutaneous in the morning and 32 units subcutaneous in the evening. 11. Levothyroxine 175 mcg by mouth daily. 12. Lisinopril 2.5 mg by mouth daily. 13. Meloxicam 7.5 mg 1 to 2 tablets by mouth daily. 14. Orphenadrine citrate 100 mg by mouth as needed. 15. OxyContin 2 mg by mouth every 12 hours as needed for pain. 16. Percocet 5/325 mg 1 to 2 tablets by mouth every 4 hours as needed for pain. 17. Simvastatin 80 mg by mouth daily. 18. Xigduo XR 01/1000 mg 1 by mouth daily. 19. Tanzeum 30 mg weekly. 20. Trianex 0.05% topical to the left foot nightly as needed. Hospital medications: 1. Atorvastatin 20 mg by mouth daily. 2. Bupropion 5 mg by mouth twice daily. 3. Cefepime 2 g IV every 12 hours. 4. Dextrose 25 mL IV push for glucose less than 60 as needed. 5. Benadryl 25 mg IV p.o. every 6 hours as needed for itching. 6. Colace 100 mg by mouth twice daily as needed for constipation. 7. Duloxetine 60 mg by mouth daily. 8. Humalog insulin sliding scale subcutaneous with meals and at bedtime. 9. Lactated Ringers 125 by mouth an hour intravenously. 10. Levothyroxine 175 mcg by mouth daily. 11. Milk of magnesia 30 mL by mouth twice daily as needed for constipation. 12. Morphine sulfate 4 mg IV every 4 hours as needed for pain. 13. MS Contin 15 mg by mouth every 12 hours. 14. Nicotine 14 mg patch transdermal daily. 15. Zofran 4 mg IV sublingual every 6 hours as needed for nausea. 16. Percocet 5/325 2 tablets by mouth every 4 hours as needed for pain. 17. MiraLAX 17 g by mouth daily as needed for constipation. 18. Scopolamine patch 1 patch transdermal every 72 hours as needed for nausea, vomiting. 19. Senokot 1 tablet by mouth at bedtime. 20. Tiotropium bromide/olodaterol 2 puffs inhalation every day. 21. Vancomycin 1250 mg IV every 8 hours. ALLERGIES: BEE VENOM, CANAGLIFLOZIN, CODEINE, PREDNISONE. FAMILY HISTORY: Denies family history of recurrent or resistant infections. Mother with a history of coronary artery disease and CVA. Father with a history of diabetes mellitus and CHF. No family history of cancer. SOCIAL HISTORY: She denies alcohol or recreational drug use. She has smoked half to one pack a day for the last 24 years. REVIEW OF SYSTEMS: I performed a 10-point review of systems. All the pertinent positives and negatives are mentioned in the history of present illness. The remaining review of systems are negative. PHYSICAL EXAMINATION: Vital Signs: Temperature 98.1, heart rate 75, respiratory rate 16, O2 sat 96% on room air, blood pressure 125/69. General Appearance: The patient is alert, appears to be in no acute distress. Head: Normocephalic, atraumatic. ENT: Pupils are equal and reactive to light. Extraocular movements are intact. Moist mucous membranes. Neck: Supple. No lymphadenopathy. Neurological: Alert and oriented x4. Cranial nerves II through XII are grossly intact. Cardiovascular: Regular rate and rhythm. S1, S2 present. No murmurs, rubs or gallops heard. Respiratory: No accessory muscle use. Lungs are clear to auscultation bilateral. Abdomen: Bowel sounds present. Abdomen is soft, large, nontender, nondistended. Extremities: There is mild bilateral lower extremity edema. Musculoskeletal: No clubbing or cyanosis noted. No tenderness with palpation of the right knee. No effusion noted. Psychological: Calm and cooperative. Skin: No rash is seen. There is incision to the right knee that is well approximated with sutures intact. Above that, there are two small incisions that are well approximated. No surrounding erythema. There are two distal incisions, one with purulent drainage able to be expressed. DIAGNOSTIC STUDIES/LAB DATA: Sodium 134, potassium 4.2, chloride 101, CO2 of 26 , BUN 17, creatinine 0.65, glucose 167. White blood cell count 15.0, hemoglobin 15, hematocrit 45, platelet count 653. Please see impression and recommendations outlined above, recommendations have been discussed with YOON Juares. Thank you for asking us to see Ms. Dahl in consultation. The case has been reviewed with my attending, Dr. Joey Velasco, who agrees with the plan of care. Reviewed by INGRID SHAW 04/19/19 1149 [id number]/[facility] #: [id number] [facility]
[2019-04-18] MEDS ORDERED: Acetaminophen IV 1GM/100ML * 1,000 MG/100 ML VIAL IVPB ONE (14:53)
[2019-04-18] MEDS ORDERED: DiMENhydriNATE IV* 50 MG/ML VIAL IV PUSH PRN (14:53)
[2019-04-18] MEDS ORDERED: Naloxone* 0.4 MG/ML 1 ML VIAL IV PRN (14:53)
[2019-04-18] MEDS ORDERED: Acetaminophen IV 1GM/100ML * 100 ML ONE (15:28)
[2019-04-18] MEDS ORDERED: Ondansetron INJ* 2 MG/ML VIAL ONE ×2 (15:34→17:28)
[2019-04-18] MEDS ORDERED: Magnesium Hydroxide LIQ* 30 ML UDC PO PRN (16:15)
[2019-04-18] MEDS ORDERED: Ondansetron INJ* 2 MG/ML VIAL IV PRN (16:15)
[2019-04-18] MEDS ORDERED: diPHENhydraMINE PO* 25 MG PO PRN (16:15)
[2019-04-18] MEDS ORDERED: diPHENhydraMINE IV* 50 MG/ML 1 ml VIAL (BENADRYL) IV PRN (16:15)
[2019-04-18] MEDS ORDERED: Bisacodyl SUPP* 10 MG SUPP PR PRN (16:20)
[2019-04-18] MEDS ORDERED: Polyethylene Glycol 3350* 17 GM PACKET PO PRN (16:20)
[2019-04-18] MEDS: fentaNYL* 50 MCG/ML 2 ML VIAL (100 MCG VIAL) IV PRN ×4 (16:24→17:52)
[2019-04-18] MEDS: Lactated Ringers 1000 ML Bag* 1,000 ML IV SCH (17:48)
[2019-04-18] MEDS: Cefepime(*) 2 GM in NS 0.9% 50 ML* 50 ML IVPB SCH (18:18)
[2019-04-18] MEDS: Atorvastatin* 20 MG TAB PO SCH (18:21)
[2019-04-18] MEDS: DULoxetine DR CAP* 60 MG CAP.DR PO SCH (18:21)
--- NOTE | 2019-04-18 19:27 | PN ---
Subjective Date of Service: 04/18/19 Interval History: Pt is seen post-operatively in her room. She is tired and in pain. She rates pain as 9/10. She has no other complaints at this time. Objective Active Medications: Acetaminophen (Tylenol Tab*) 975 mg PO Q8H [facility] Atorvastatin Calcium (Lipitor*) 20 mg PO 1800 [facility] Bisacodyl (Dulcolax Supp*) 10 mg WI DAILY PRN Buspirone HCl (Buspar Tab*) 5 mg PO BID [facility]OS[facility] Cyclobenzaprine HCl (Flexeril Tab*) 10 mg PO TID PRN Dextrose (Dextrose 50% Vial 50 Ml*) 25 ml IV PUSH .FOR FS < 60 - SS PRN Dimenhydrinate (Dramamine Iv*) 25 mg IV PUSH ONCE PRN Diphenhydramine HCl (Benadryl Iv*) 25 mg IV Q6H PRN Diphenhydramine HCl (Benadryl Po*) 25 mg PO Q6H PRN Docusate Sodium (Colace Cap*) 100 mg PO BID JOS[facility] Duloxetine HCl (Cymbalta Cap*) 60 mg PO 1800 [facility] Enoxaparin Sodium (Lovenox(*)) 40 mg SUBCUT Q24H [facility] Fentanyl Citrate (Fentanyl*) 50 mcg IV Q2M PRN Vancomycin HCl 1,250 mg/ (Sodium Chloride) 250 mls @ 166.667 mls/hr IVPB Q8H [facility] Cefepime HCl 2 gm/ Sodium (Chloride) 50 mls @ 100 mls/hr IVPB Q12H [facility] Lactated Ringer's (Lactated Ringers 1000 Ml Bag*) 1,000 mls @ 100 mls/hr IV PER RATE [facility] Insulin Human Lispro (Humalog*) 0 units SUBCUT ACHS [facility]; Protocol Lactulose (Lactulose*) 30 ml PO Q6H PRN Levothyroxine Sodium (Synthroid Tab*) 175 mcg PO QAM@0600 [facility] Magnesium Hydroxide (Milk Of Magnesia Liq*) 30 ml PO BID JOS[facility] Magnesium Hydroxide (Milk Of Magnesia Liq*) 30 ml PO Q6H PRN Morphine Sulfate (Ms Contin(*)) 15 mg PO Q12H [facility] Morphine Sulfate (Morphine 4 Mg/Ml Vial (1 Ml)) 4 mg IV Q2H PRN Naloxone HCl (Narcan*) 0.08 mg IV Q2M PRN Nicotine (Nicotine Patch 14 Mg/24 Hr*) 1 patch TRANSDERM DAILY [facility] Ondansetron HCl (Zofran Odt Tab*) 4 mg SL Q6H PRN Ondansetron HCl (Zofran Inj*) 4 mg IV Q6H PRN Oxycodone/Acetaminophen (Percocet 5/325 Tab*) 2 tab PO Q4H PRN Pharmacy Consult (Vancomycin Per Pharmacy*) 1 note FOLLOW UP .VANC PER PHARMACY [facility]; Protocol Pharmacy Profile Note (Scopolamine Patch Remove*) 1 note PATCH OFF 1100 [facility] Pharmacy Profile Note (Nicotine Patch Removal Note*) 1 note PATCH OFF 2100 [facility] Pharmacy Profile Note (Vancomycin Trough Check) 1 note FOLLOW UP ONCE ONE Polyethylene Glycol/Electrolytes (Miralax*) 17 gm PO DAILY PRN Scopolamine (Transderm-Scop 1.5 Mg Patch*) 1 patch TRANSDERM Q72H PRN Senna (Senokot 8.6 Mg Tab*) 1 tab PO BEDTIME PRN Tiotropium [place]/Olodaterol (Stiolto Respimat Inh [place] (60 Puff)) 2 puff INH QAM [facility] Vital Signs: Temp Pulse Resp BP Pulse Ox 97.8 F 92 16 139/76 100 04/18/19 17:59 04/18/19 17:59 04/18/19 17:59 04/18/19 17:59 04/18/19 17:59 Oxygen Devices in Use Now: Nasal Cannula Appearance: Pt is sitting up in bed. She appears groggy and in a mild amount of discomfort. She is somewhat tearful at times. She is cooperative, appropriate. Eyes: No Scleral Icterus, PERRLA Ears/Nose/Mouth/Throat: NL Teeth, Lips, Gums, Mucous Membranes Moist Neck: NL Appearance and Movements; NL JVP, Trachea Midline Respiratory: Symmetrical Chest Expansion and Respiratory Effort, Clear to Auscultation Cardiovascular: NL Sounds; No Murmurs; No JVD, RRR, No Edema Abdominal: NL Sounds; No Tenderness; No Distention, No Hepatosplenomegaly Extremities: No Clubbing, Cyanosis, - - RLE with slight edema. CDI dressing to R knee with cryo unit in place. Neurological: Alert and Oriented x 3 Result Diagrams: 04/18/19 06:39 04/18/19 06:39 Microbiology and Other Data: Microbiology 04/18/19 14:47 Gram Stain - Final Joint Fluid(Synovial) - Knee Right Skin and Soft Tissue MRSA/MSSA (PCR - Final Mrsa Negative S.aureus Negative 04/17/19 11:45 Aerobic Blood Culture - Preliminary Blood Venous No Growth Day 1 Anaerobic Blood Culture - Preliminary No Growth Day 1 04/17/19 11:56 Aerobic Blood Culture - Preliminary Blood Venous No Growth Day 1 Anaerobic Blood Culture - Preliminary No Growth Day 1 04/17/19 13:13 Anaerobic Culture - Preliminary Wound - Knee Right No Growth Day 1 04/17/19 11:30 Skin and Soft Tissue MRSA/MSSA (PCR - Final Knee Right Mrsa Negative S.aureus Negative Gram Stain - Final Wound Culture - Preliminary No Growth Day 1 Assess/Plan/Problems-Billing Assessment: 54 yof PMHx DM, hypothyroid, HLD, depression, anxiety presents s/o RTKA March 30 for washout of wound due to questionable post-operative infection. - Patient Problems (1) Infection of right knee Comment: -S/P RTKA March 30 -POD0 washout with Dr. Shea -Ortho and ID consulting -Continue vancomycin, cefepime (2) Diabetes Comment: -Controlled -Continue Lispro by SS -Continue to hold PO home medications (3) Hyperlipidemia Comment: -Continue atorvastatin (4) Hypothyroid Comment: -Continue levothyroxine (5) Depression with anxiety Comment: -Continue home medications buspirone, duloxetine (6) Tobacco abuse Comment: -Nicotine patch ordered (7) DVT prophylaxis Comment: -Per ortho: lovenox (8) Full code status Status and Disposition: Inpatient. Discharge when stable.
[2019-04-18] MEDS ORDERED: Fluconazole 150 MG TAB PO ONE (21:00)
--- NOTE | 2019-04-18 21:18 | OP ---
DATE OF OPERATION: 04/18/19 - ROOM #340 DATE OF : 69 ATTENDING SURGEON: Aliza Shea MD DIRECT MARKETING MANAGER: YOON Gasca. Carlos did help throughout the procedure with preparation of the leg, wound retraction, manipulation of the knee, and wound closure. ANESTHESIOLOGIST: Dr. Donaldson. ANESTHESIA: General. 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 POST-OP DIAGNOSIS: Infected right total knee arthroplasty. OPERATIVE PROCEDURE: Open irrigation and debridement of infected left knee arthroplasty. TOURNIQUET TIME: 35 minutes. COMPLICATIONS: None. SPECIMEN: 10 cc of joint fluid as well as multiple culture swabs were sent to Microbiology for cultures and sensitivities to include aerobic, anaerobic, fungal and microbacterial. BRIEF HISTORY/INDICATIONS: Ms. Dahl is a 54-year-old diabetic female who had , on 03/30/19, right total knee arthroplasty. She did have the NAVIO robotic surgery. Postoperatively, the patient was discharged to home. She did have hematoma and developed mild cellulitis treated with Augmentin. The patient was followed up on 04/17/19 as an outpatient clinic visit reporting significant improvement in her knee pain and swelling. She had finished the Augmentin. She had suture removal that began at the inferior tibial pin sites. Upon removing sutures, there was purulent drainage from the incision. At this point , the knee joint was aspirated. The patient was sent to [facility] for admission, IV antibiotics, and washout of the pin site. The patient's knee aspiration results did indicate infection of the total knee arthroplasty as well and therefore decision was made with the patient to washout the entire knee joint to perform polyethylene exchange and washout the pin sites as well. Informed consent was obtained from the patient. She understood the risks of surgery included, but were not limited to bleeding, infection, damage to nearby structures, continued pain, need for further surgery, intraoperative fracture, nerve palsy, hardware failure, loosening, continued infection, need for explant of the hardware, anesthesia complications, stroke, heart attack, blood clot and . She wished to proceed. The patient was given the option of explant of the hardware versus an open washout with polyethylene exchange. She did not wish to proceed with complete explant of the hardware. INTRAOPERATIVE FINDINGS: Intraoperatively, the patient was noted to have significant hematoma throughout the knee joint. She had fluid that resembled hematoma in the knee joint. Some purulence around the tibial pin site. Her tibial, femoral, and patellar components were intact without any evidence of loosening. DESCRIPTION OF PROCEDURE: Ms. Dahl was identified in the preanesthesia unit. Her right lower extremity was marked as the correct operative site. Informed consent was signed and placed in the chart. The patient was taken to the operating room and placed under general anesthesia. A Sauceda catheter was placed. The patient's sutures were removed from the incisions. Her right lower extremity was prepped and draped in the usual sterile fashion. A tourniquet had been placed. Preop time-out was made to correctly identify the patient's side and site. The patient's prior incisions were opened. Her prior medial parapatellar arthrotomy was also opened. Any visible sutures were removed. There was abundant hematoma and joint fluid. 10 cc of joint fluid and multiple culture swabs were obtained to send to Microbiology for cultures and sensitivities. These specimens were obtained and sent. The patient's polyethylene liner was easily removed. The patient's knee was copiously irrigated with 6 L of normal saline. Rongeur and curette were used to debride any hematoma or fibrous tissues around the joint capsule. The patient's femoral and tibial pin sites were copiously irrigated and debrided as well. The pin sites in the bone were debrided with a curette. These sites were copiously irrigated with sterile saline. Another 6 L of normal saline was used for irrigation. There was no further visible purulence or necrotic tissue. The patient's liner was replaced with a [employer]hew size 3-4 9 mm posterior stabilized articular insert. The insert was locked into position on the tibial tray. The stability of the insert was checked and rechecked and noted to be stable. The patient's extensor mechanism was closed using interrupted #1 Vicryls. The rest of the incisions were closed using interrupted 0 and 2-0 Vicryls in a layered fashion. Skin was closed using running 3-0 nylon suture. The patient' s incisions were covered with Xeroform, 4x4s and Webril. Christ wrap and cold pack were placed over this. The patient will have IV vancomycin and cefepime until culture and sensitivities are back. She is being followed by Infectious Disease already. She understands she will need a PICC line in eight weeks at least of IV antibiotics. She will be weightbearing as tolerated. We will focus on strict blood glucose control. The patient has agreed to stop smoking tobacco for now. She will be given a nicotine patch. [id number]/[facility] #: [id number] NILESH
[2019-04-18] MEDS ORDERED: Vancomycin Trough Check NOTE FOLLOW UP ONE (21:30)
[2019-04-18] MEDS: Magnesium Hydroxide LIQ* 30 ML UDC PO SCH (21:31)
[2019-04-18] MEDS: Nystatin TOP POWDER* 15 GM BTL TOPICAL SCH (21:31)
[2019-04-18] MEDS: Docusate CAP* 100 MG PO SCH (21:32)
[2019-04-18] MEDS: Nicotine Patch Removal NOTE PATCH OFF SCH (21:43)
[2019-04-18] MEDS: Vancomycin(*) 1,000 MG in NS 0.9% 250 ML* 250 ML IVPB SCH (23:43)
[2019-04-19] MEDS: Acetaminophen TAB* 325 MG PO SCH ×3 (00:03→17:10)
[2019-04-19] MEDS: oxyCODONE/Acetamin 5/325 MG* TAB PO PRN ×5 (01:24→21:45)
[2019-04-19] MEDS: Cyclobenzaprine TAB* 10 MG PO PRN ×2 (01:24→10:51)
[2019-04-19] MEDS: Morphine 4 MG/ML VIAL (1 ml) 4 MG/ML VIAL IV PRN (04:08)
[2019-04-19] MEDS: Vancomycin(*) 1,250 MG in NS 0.9% 250 ML* 250 ML IVPB SCH (04:13)
[2019-04-19] MEDS: Levothyroxine TAB* 175 MCG TAB PO SCH (05:10)
[2019-04-19] MEDS: Cefepime(*) 2 GM in NS 0.9% 50 ML* 50 ML IVPB SCH (05:10)
[2019-04-19] MEDS: Lactated Ringers 1000 ML Bag* 1,000 ML IV SCH (05:15)
[2019-04-19 07:05] LABS: Hematocrit 43 % (35-47); Hemoglobin 14.5 g/dL (12.0-16.0); Mean Platelet Volume 6.8 fL (7.4-10.4); Platelet Count 603 10^3/uL (150-450)
[2019-04-19 07:31] LABS: BUN/Creatinine Ratio 14.3 (8-20); Calcium 8.8 mg/dL (8.6-10.3); EGFR African American 137.6 (>60); EGFR Non-African American 113.7 (>60); Potassium 4.1 mmol/L (3.5-5.0)
[2019-04-19] MEDS: Vancomycin(*) 1,000 MG in NS 0.9% 250 ML* 250 ML IVPB SCH ×3 (07:53→23:38)
[2019-04-19] MEDS: Enoxaparin(*) 40 MG/0.4 ML SYR SUBCUT SCH (07:54)
[2019-04-19] MEDS: busPIRone TAB* 5 MG PO SCH ×2 (07:54→20:51)
[2019-04-19] MEDS: Docusate CAP* 100 MG PO SCH ×2 (07:54→20:51)
[2019-04-19] MEDS: Nicotine PATCH 14 MG/24 HR* PATCH TRANSDERM SCH (07:54)
[2019-04-19] MEDS: Magnesium Hydroxide LIQ* 30 ML UDC PO SCH ×2 (07:55→20:53)
[2019-04-19] MEDS: Tiotropium Brom/Olodaterol MDI INH SCH (07:55)
[2019-04-19] MEDS: Nystatin TOP POWDER* 15 GM BTL TOPICAL SCH ×3 (07:56→20:51)
[2019-04-19] MEDS: Insulin LISPRO* 1 UNITS UNIT SUBCUT SCH ×4 (08:52→20:52)
[2019-04-19] MEDS: Morphine TAB Extended Release (*) 15 MG TAB.ER PO SCH ×2 (10:34→23:32)
--- NOTE | 2019-04-19 13:48 | PN ---
Progress Note - Progress Note Date of Service: 04/19/19 SOAP: Subjective: []Patient seen at bedside. Her knee is sore but patient feels it is tolerable. Denies CP, SOB, dizziness, nausea. Objective: []Gen: Appears well, NAD RLE: Right knee dressing CDI, thigh soft, DF/PF intact, DP2+, sensation intact to light touch distally Calves supple and nontender Assessment: []POD 1 sp I&D, poly exchange infected RTK Plan: []WBAT PT/OT lovenox 40 mg sq qd x 30 days post op abx per ID: vanco and cefepime. Follow cultures, no growth thus far First Dressing change tomorrow Vital Signs Temp 98.7 F 04/19/19 11:41 Pulse 91 04/19/19 11:41 Resp 18 04/19/19 13:22 BP 127/66 04/19/19 11:41 Pulse Ox 96 04/19/19 11:41 Intake & Output 04/18/19 04/19/19 04/19/19 18:59 06:59 18:59 Intake Total 2195 1990 933 Output Total 1550 1350 1000 Balance 645 640 -67 Intake: IV Fluids 1700 900 613 ABX - CEFEPIME 72 ABX - VANCOMYCIN 300 LR 1700 900 241 IVPB 255 250 ABX - VANCOMYCIN 255 250 Oral 240 840 320 Output: Urine 1050 1350 1000 Sauceda 500 Other: Estimated Void Large Estimated Blood Loss 100 Comment # Voids 1 Laboratory Last Values WBC 13.0 10^3/uL (3.5-10.8) H 04/18/19 06:39 RBC 4.83 10^6 /uL (3.70-4.87) 04/18/19 06:39 Hgb 14.5 g/dL (12.0-16.0) 04/19/19 06:39 Hct 43 % (35-47) 04/19/19 06:39 MCV 92 fL (80-97) 04/18/19 06:39 MCH 31 pg (27-31) 04/18/19 06:39 MCHC 34 g/dL (31-36) 04/18/19 06:39 RDW 14 % (10-15) 04/18/19 06:39 Plt Count 603 10^3/uL (150-450) H D 04/19/19 06:39 MPV 6.8 fL (7.4-10.4) L 04/19/19 06:39 Neut % (Auto) 69.6 % 04/18/19 06:39 Lymph % (Auto) 19.9 % 04/18/19 06:39 Jack % (Auto) 7.4 % 04/18/19 06:39 Eos % (Auto) 2.4 % 04/18/19 06:39 Baso % (Auto) 0.7 % 04/18/19 06:39 Absolute Neuts (auto) 9.1 10^3/ul (1.5-7.7) H 04/18/19 06:39 Absolute Lymphs (auto) 2.6 10^3/ul (1.0-4.8) 04/18/19 06:39 Absolute Monos (auto) 1.0 10^3/ul (0-0.8) H 04/18/19 06:39 Absolute Eos (auto) 0.3 10^3/ul (0-0.6) 04/18/19 06:39 Absolute Basos (auto) 0.1 10^3/ul (0-0.2) 04/18/19 06:39 Absolute Nucleated RBC 0.0 10^3/ul 04/18/19 06:39 Nucleated RBC % 0.0 04/18/19 06:39 ESR 19 mm/Hr (0-29) 04/17/19 11:45 INR (Anticoag Therapy) 1.05 (0.82-1.09) 04/18/19 06:39 Sodium 137 mmol/L (135-145) 04/19/19 06:39 Potassium 4.1 mmol/L (3.5-5.0) 04/19/19 06:39 Chloride 100 mmol/L (101-111) L 04/19/19 06:39 Carbon Dioxide 32 mmol/L (22-32) 04/19/19 06:39 Anion Gap 5 mmol/L (2-11) 04/19/19 06:39 BUN 8 mg/dL (6-24) 04/19/19 06:39 Creatinine 0.56 mg/dL (0.51-0.95) 04/19/19 06:39 Est GFR ( Amer) 137.6 (>60) 04/19/19 06:39 Est GFR (Non-Af Amer) 113.7 (>60) 04/19/19 06:39 BUN/Creatinine Ratio 14.3 (8-20) 04/19/19 06:39 Glucose 158 mg/dL (70-100) H 04/19/19 06:39 POC Glucose (mg/dL) 209 mg/dL (70-100) H 04/19/19 11:42 Calcium 8.8 mg/dL (8.6-10.3) 04/19/19 06:39 C-Reactive Protein 17.92 mg/L (<8.01) H 04/17/19 11:45 Vancomycin Trough 16.1 mcg/mL 04/18/19 21:44 Blood Type A Negative 04/18/19 06:39 Antibody Screen Negative 04/18/19 06:39
[2019-04-19] MEDS: Atorvastatin* 20 MG TAB PO SCH (17:11)
[2019-04-19] MEDS: Cefepime 2 GM in Dextrose(*) 2 GM/50 ML BAG IV SCH (17:35)
[2019-04-19] MEDS: DULoxetine DR CAP* 60 MG CAP.DR PO SCH (17:40)
--- NOTE | 2019-04-19 19:20 | PN ---
Subjective Date of Service: 04/19/19 Interval History: Patient reports feeling well. Denies fever/chills, chest pain, SOB, abd pain, n/ v/d. Feels her pain is well controlled. Notes her leg is swollen but not more swollen than it has been since TKA Objective Active Medications: Acetaminophen (Tylenol Tab*) 975 mg PO Q8H [facility] Last Admin: 04/19/19 17:10 Dose: Not Given Atorvastatin Calcium (Lipitor*) 20 mg PO 1800 [facility] Last Admin: 04/19/19 17:11 Dose: 20 mg Bisacodyl (Dulcolax Supp*) 10 mg OK DAILY PRN PRN Reason: constipation Buspirone HCl (Buspar Tab*) 5 mg PO BID [facility] Last Admin: 04/19/19 07:54 Dose: 5 mg Cyclobenzaprine HCl (Flexeril Tab*) 10 mg PO TID PRN PRN Reason: SPASMS Last Admin: 04/19/19 10:51 Dose: 10 mg Dextrose (Dextrose 50% Vial 50 Ml*) 25 ml IV PUSH .FOR FS < 60 - SS PRN PRN Reason: FS < 60 Diphenhydramine HCl (Benadryl Iv*) 25 mg IV Q6H PRN PRN Reason: itching Diphenhydramine HCl (Benadryl Po*) 25 mg PO Q6H PRN PRN Reason: INSOMNIA Docusate Sodium (Colace Cap*) 100 mg PO BID [facility] Last Admin: 04/19/19 07:54 Dose: 100 mg Duloxetine HCl (Cymbalta Cap*) 60 mg PO 1800 [facility] Last Admin: 04/19/19 17:40 Dose: 60 mg Enoxaparin Sodium (Lovenox(*)) 40 mg SUBCUT Q24H [facility] Last Admin: 04/19/19 07:54 Dose: 40 mg Lactated Ringer's (Lactated Ringers 1000 Ml Bag*) 1,000 mls @ 100 mls/hr IV PER RATE [facility] Last Admin: 04/19/19 05:15 Dose: 100 mls/hr Vancomycin HCl 1,000 mg/ (Sodium Chloride) 250 mls @ 166.667 mls/hr IVPB Q8H [facility] Last Admin: 04/19/19 17:08 Dose: 166.667 mls/hr Cefepime HCl (Maxipime 2 Gm In Dextrose Duplex (*)) 2 gm in 50 mls @ 100 mls/ hr IV Q12H [facility] Last Admin: 04/19/19 17:35 Dose: 100 mls/hr Insulin Human Lispro (Humalog*) 0 units SUBCUT ACHS [facility]; Protocol Last Admin: 04/19/19 18:13 Dose: 6 units Lactulose (Lactulose*) 30 ml PO Q6H PRN PRN Reason: constipation Levothyroxine Sodium (Synthroid Tab*) 175 mcg PO QAM@0600 [facility] Last Admin: 04/19/19 05:10 Dose: 175 mcg Magnesium Hydroxide (Milk Of Magnesia Liq*) 30 ml PO BID [facility] Last Admin: 04/19/19 07:55 Dose: 30 ml Magnesium Hydroxide (Milk Of Magnesia Liq*) 30 ml PO Q6H PRN PRN Reason: constipation Morphine Sulfate (Ms Contin(*)) 15 mg PO Q12H [facility] Last Admin: 04/19/19 10:34 Dose: 15 mg Morphine Sulfate (Morphine 4 Mg/Ml Vial (1 Ml)) 4 mg IV Q2H PRN PRN Reason: PAIN - SEVERE Last Admin: 04/19/19 04:08 Dose: 4 mg Nicotine (Nicotine Patch 14 Mg/24 Hr*) 1 patch TRANSDERM DAILY [facility] Last Admin: 04/19/19 07:54 Dose: 1 patch Nystatin (Nystatin Top Powder*) 1 applic TOPICAL TID [facility] Last Admin: 04/19/19 15:50 Dose: Not Given Ondansetron HCl (Zofran Odt Tab*) 4 mg SL Q6H PRN PRN Reason: NAUSEA/VOMITING Ondansetron HCl (Zofran Inj*) 4 mg IV Q6H PRN PRN Reason: nausea Last Admin: 04/18/19 17:29 Dose: 4 mg Oxycodone/Acetaminophen (Percocet 5/325 Tab*) 2 tab PO Q4H PRN PRN Reason: PAIN - MODERATE Last Admin: 04/19/19 17:10 Dose: 2 tab Pharmacy Consult (Vancomycin Per Pharmacy*) 1 note FOLLOW UP .VANC PER PHARMACY [facility]; Protocol Pharmacy Profile Note (Nicotine Patch Removal Note*) 1 note PATCH OFF 2100 [facility] Last Admin: 04/18/19 21:43 Dose: 1 note Pharmacy Profile Note (Vancomycin Trough Check) 1 note FOLLOW UP 1530 ONE Stop: 04/20/19 15:31 Polyethylene Glycol/Electrolytes (Miralax*) 17 gm PO DAILY PRN PRN Reason: Constipation Scopolamine (Transderm-Scop 1.5 Mg Patch*) 1 patch TRANSDERM Q72H PRN PRN Reason: Nausea/Vomiting Senna (Senokot 8.6 Mg Tab*) 1 tab PO BEDTIME PRN PRN Reason: CONSTIPATION Tiotropium [place]/Olodaterol (Stiolto Respimat Inh [place] (60 Puff)) 2 puff INH QAM JOS[facility] Last Admin: 04/19/19 07:55 Dose: 2 puff Vital Signs - 8 hr 04/19/19 04/19/19 04/19/19 11:41 13:22 15:19 Temperature 98.7 F 98.5 F Pulse Rate 91 97 Respiratory 17 18 16 Rate Blood Pressure 127/66 114/63 (mmHg) O2 Sat by Pulse 96 94 Oximetry 04/19/19 04/19/19 04/19/19 15:50 16:00 17:10 Temperature Pulse Rate Respiratory 18 18 Rate Blood Pressure (mmHg) O2 Sat by Pulse 94 Oximetry Oxygen Devices in Use Now: None Appearance: Obese white female laying in bed appearing in NAD Eyes: No Scleral Icterus, PERRLA Ears/Nose/Mouth/Throat: Mucous Membranes Moist Neck: NL Appearance and Movements; NL JVP Respiratory: Symmetrical Chest Expansion and Respiratory Effort, Clear to Auscultation Cardiovascular: NL Sounds; No Murmurs; No JVD, RRR Abdominal: - - abd soft, nontender, nondistended Extremities: No Clubbing, Cyanosis, - - trace edema to R leg near incision site below knee Skin: No Rash or Ulcers Neurological: Alert and Oriented x 3, NL Muscle Strength and Tone Result Diagrams: 04/19/19 06:39 04/19/19 06:39 Microbiology and Other Data: Microbiology 04/18/19 14:47 Gram Stain - Final Joint Fluid(Synovial) - Knee Right Skin and Soft Tissue MRSA/MSSA (PCR - Final Mrsa Negative S.aureus Negative 04/17/19 11:45 Aerobic Blood Culture - Preliminary Blood Venous No Growth Day 1 Anaerobic Blood Culture - Preliminary No Growth Day 1 04/17/19 11:56 Aerobic Blood Culture - Preliminary Blood Venous No Growth Day 1 Anaerobic Blood Culture - Preliminary No Growth Day 1 04/17/19 13:13 Anaerobic Culture - Preliminary Wound - Knee Right No Growth Day 1 04/17/19 11:30 Skin and Soft Tissue MRSA/MSSA (PCR - Final Knee Right Mrsa Negative S.aureus Negative Gram Stain - Final Wound Culture - Preliminary No Growth Day 1 Assess/Plan/Problems-Billing Assessment: 54 yof PMHx DM, hypothyroid, HLD, depression, anxiety presents s/o RTKA March 30 for washout of wound due to questionable post-operative infection. - Patient Problems (1) Infection of total right knee replacement Current Visit: Yes Status: Acute Code(s): T84.53XA - INFECT/INFLM REACTION DUE TO INTERNAL R KNEE PROSTH, INIT SNOMED Code(s): 880607600 Comment: -s/p Navio assisted RTKA with Dr. Shea -outpatient culture pending -continue cefepime and vanco -afebrile,leukocytosis downtrending (2) Thrombocytosis Current Visit: Yes Status: Acute Comment: -likely reactive related to infection (3) Hypothyroid Current Visit: Yes Status: Acute Code(s): E03.9 - HYPOTHYROIDISM, UNSPECIFIED SNOMED Code(s): 86004765 Comment: -Continue levothyroxine (4) Tobacco abuse Current Visit: Yes Status: Acute Code(s): Z72.0 - TOBACCO USE SNOMED Code( s): 842057738 Comment: -Nicotine patch ordered (5) Diabetes Current Visit: No Status: Acute Code(s): E11.9 - TYPE 2 DIABETES MELLITUS WITHOUT COMPLICATIONS SNOMED Code(s): 30945132 Comment: -Controlled -Continue Lispro by SS -Continue to hold PO home medications (6) DVT prophylaxis Current Visit: No Status: Acute Code(s): Z29.9 - ENCOUNTER FOR PROPHYLACTIC MEASURES, UNSPECIFIED SNOMED Code(s): 325621950 Comment: -Per ortho: lovenox (7) Full code status Current Visit: No Status: Acute Code(s): Z78.9 - OTHER SPECIFIED HEALTH STATUS SNOMED Code(s): 885712491 Status and Disposition: Inpatient. Discharge when stable.
[2019-04-19] MEDS: Nicotine Patch Removal NOTE PATCH OFF SCH (20:53)
[2019-04-20] MEDS: Acetaminophen TAB* 325 MG PO SCH ×3 (00:39→17:44)
[2019-04-20] MEDS: Cefepime 2 GM in Dextrose(*) 2 GM/50 ML BAG IV SCH ×2 (05:21→17:43)
[2019-04-20] MEDS: Levothyroxine TAB* 175 MCG TAB PO SCH (05:21)
[2019-04-20 06:39] LABS: Hematocrit 41 % (35-47); Hemoglobin 13.7 g/dL (12.0-16.0); Mean Platelet Volume 6.8 fL (7.4-10.4); Platelet Count 537 10^3/uL (150-450)
--- NOTE | 2019-04-20 07:19 | PN ---
Progress Note - Progress Note Date of Service: 04/20/19 SOAP: Subjective: Pt. is alert, reports knee pain is improved. Objective: Vital Signs: Temp Pulse Resp BP Pulse Ox 98.3 F 85 17 111/55 93 04/20/19 03:50 04/20/19 03:50 04/20/19 03:50 04/20/19 03:50 04/20/19 03:50 Laboratory Results - last 24 hr 04/19/19 04/19/19 04/19/19 06:39 07:58 11:42 Hgb Hct Plt Count MPV Sodium 137 Potassium 4.1 Chloride 100 L Carbon Dioxide 32 Anion Gap 5 BUN 8 Creatinine 0.56 Est GFR ( Amer) 137.6 Est GFR (Non-Af Amer) 113.7 BUN/Creatinine Ratio 14.3 Glucose 158 H POC Glucose (mg/dL) 151 H 209 H Calcium 8.8 04/19/19 04/19/19 04/20/19 17:16 20:33 06:12 Hgb 13.7 Hct 41 Plt Count 537 H D MPV 6.8 L Sodium Potassium Chloride Carbon Dioxide Anion Gap BUN Creatinine Est GFR ( Amer) Est GFR (Non-Af Amer) BUN/Creatinine Ratio Glucose POC Glucose (mg/dL) 220 H 220 H Calcium RLE - dressing c/d/i. distally nvi. Assessment: 54 yo pod 2 s/p I and D RTKA infection/hematoma Plan: final blood cultures pending final intraop cultures pending, no growth yet plan PICC line and IV abx x 8 weeks wbat pt/ot
[2019-04-20 07:54] LABS: Mean Corpuscular HGB Conc 33 g/dL (31-36); Mean Corpuscular Hemoglobin 31 pg (27-31); Mean Corpuscular Volume 92 fL (80-97); Red Blood Count 4.53 10^6 /uL (3.70-4.87); Red Cell Distribution Width 15 % (10-15); White Blood Count 12.1 10^3/uL (3.5-10.8)
[2019-04-20] MEDS: oxyCODONE/Acetamin 5/325 MG* TAB PO PRN ×3 (08:03→17:42)
[2019-04-20] MEDS: Vancomycin(*) 1,000 MG in NS 0.9% 250 ML* 250 ML IVPB SCH (08:06)
[2019-04-20] MEDS: Tiotropium Brom/Olodaterol MDI INH SCH (08:33)
[2019-04-20] MEDS: Insulin LISPRO* 1 UNITS UNIT SUBCUT SCH ×4 (08:44→21:11)
[2019-04-20] MEDS: Enoxaparin(*) 40 MG/0.4 ML SYR SUBCUT SCH (08:45)
[2019-04-20] MEDS: Nystatin TOP POWDER* 15 GM BTL TOPICAL SCH ×3 (08:47→21:07)
[2019-04-20] MEDS: busPIRone TAB* 5 MG PO SCH ×2 (08:47→21:11)
[2019-04-20] MEDS: Docusate CAP* 100 MG PO SCH ×2 (08:47→21:11)
[2019-04-20] MEDS: Nicotine PATCH 14 MG/24 HR* PATCH TRANSDERM SCH (08:48)
[2019-04-20] MEDS: Magnesium Hydroxide LIQ* 30 ML UDC PO SCH ×2 (08:50→21:02)
--- NOTE | 2019-04-20 09:56 | PN ---
Subjective Date of Service: 04/20/19 Interval History: Patient feeling her leg pain is improved, but still present. Pain is controlled. Notes her foot swelling hasn't gone down. Denies chest pain, fever/ chills, difficulty breathing, abd pain n/v. Objective Active Medications: Acetaminophen (Tylenol Tab*) 975 mg PO Q8H [facility] Last Admin: 04/20/19 08:43 Dose: Not Given Atorvastatin Calcium (Lipitor*) 20 mg PO 1800 [facility] Last Admin: 04/19/19 17:11 Dose: 20 mg Bisacodyl (Dulcolax Supp*) 10 mg PA DAILY PRN PRN Reason: constipation Buspirone HCl (Buspar Tab*) 5 mg PO BID [facility] Last Admin: 04/20/19 08:47 Dose: 5 mg Cyclobenzaprine HCl (Flexeril Tab*) 10 mg PO TID PRN PRN Reason: SPASMS Last Admin: 04/19/19 10:51 Dose: 10 mg Dextrose (Dextrose 50% Vial 50 Ml*) 25 ml IV PUSH .FOR FS < 60 - SS PRN PRN Reason: FS < 60 Diphenhydramine HCl (Benadryl Iv*) 25 mg IV Q6H PRN PRN Reason: itching Diphenhydramine HCl (Benadryl Po*) 25 mg PO Q6H PRN PRN Reason: INSOMNIA Docusate Sodium (Colace Cap*) 100 mg PO BID [facility] Last Admin: 04/20/19 08:47 Dose: 100 mg Duloxetine HCl (Cymbalta Cap*) 60 mg PO 1800 [facility] Last Admin: 04/19/19 17:40 Dose: 60 mg Enoxaparin Sodium (Lovenox(*)) 40 mg SUBCUT Q24H [facility] Last Admin: 04/20/19 08:45 Dose: 40 mg Lactated Ringer's (Lactated Ringers 1000 Ml Bag*) 1,000 mls @ 100 mls/hr IV PER RATE [facility] Last Admin: 04/19/19 05:15 Dose: 100 mls/hr Vancomycin HCl 1,000 mg/ (Sodium Chloride) 250 mls @ 166.667 mls/hr IVPB Q8H [facility] Last Admin: 04/20/19 08:06 Dose: 166.667 mls/hr Cefepime HCl (Maxipime 2 Gm In Dextrose Duplex (*)) 2 gm in 50 mls @ 100 mls/ hr IV Q12H [facility] Last Admin: 04/20/19 05:21 Dose: 100 mls/hr Insulin Human Lispro (Humalog*) 0 units SUBCUT ACHS [facility]; Protocol Last Admin: 04/20/19 08:44 Dose: 3 units Lactulose (Lactulose*) 30 ml PO Q6H PRN PRN Reason: constipation Levothyroxine Sodium (Synthroid Tab*) 175 mcg PO QAM@0600 [facility] Last Admin: 04/20/19 05:21 Dose: 175 mcg Magnesium Hydroxide (Milk Of Magnesia Liq*) 30 ml PO BID [facility] Last Admin: 04/20/19 08:50 Dose: Not Given Magnesium Hydroxide (Milk Of Magnesia Liq*) 30 ml PO Q6H PRN PRN Reason: constipation Morphine Sulfate (Ms Contin(*)) 15 mg PO Q12H [facility] Last Admin: 04/19/19 23:32 Dose: 15 mg Morphine Sulfate (Morphine 4 Mg/Ml Vial (1 Ml)) 4 mg IV Q2H PRN PRN Reason: PAIN - SEVERE Last Admin: 04/19/19 04:08 Dose: 4 mg Nicotine (Nicotine Patch 14 Mg/24 Hr*) 1 patch TRANSDERM DAILY [facility] Last Admin: 04/20/19 08:48 Dose: 1 patch Nystatin (Nystatin Top Powder*) 1 applic TOPICAL TID [facility] Last Admin: 04/20/19 08:47 Dose: 1 applic Ondansetron HCl (Zofran Odt Tab*) 4 mg SL Q6H PRN PRN Reason: NAUSEA/VOMITING Ondansetron HCl (Zofran Inj*) 4 mg IV Q6H PRN PRN Reason: nausea Last Admin: 04/18/19 17:29 Dose: 4 mg Oxycodone/Acetaminophen (Percocet 5/325 Tab*) 2 tab PO Q4H PRN PRN Reason: PAIN - MODERATE Last Admin: 04/20/19 08:03 Dose: 2 tab Pharmacy Consult (Vancomycin Per Pharmacy*) 1 note FOLLOW UP .VANC PER PHARMACY [facility]; Protocol Pharmacy Profile Note (Nicotine Patch Removal Note*) 1 note PATCH OFF 2100 [facility] Last Admin: 04/19/19 20:53 Dose: Not Given Pharmacy Profile Note (Vancomycin Trough Check) 1 note FOLLOW UP 1530 ONE Stop: 04/20/19 15:31 Polyethylene Glycol/Electrolytes (Miralax*) 17 gm PO DAILY PRN PRN Reason: Constipation Scopolamine (Transderm-Scop 1.5 Mg Patch*) 1 patch TRANSDERM Q72H PRN PRN Reason: Nausea/Vomiting Senna (Senokot 8.6 Mg Tab*) 1 tab PO BEDTIME PRN PRN Reason: CONSTIPATION Tiotropium [place]/Olodaterol (Stiolto Respimat Inh [place] (60 Puff)) 2 puff INH QAM [facility] Last Admin: 04/20/19 08:33 Dose: 2 puff Vital Signs - 8 hr 04/20/19 04/20/19 04/20/19 03:50 07:33 08:00 Temperature 98.3 F 97.4 F Pulse Rate 85 87 Respiratory 17 17 18 Rate Blood Pressure 111/55 127/63 (mmHg) O2 Sat by Pulse 93 95 95 Oximetry 04/20/19 04/20/19 08:03 08:33 Temperature Pulse Rate 74 Respiratory 18 16 Rate Blood Pressure (mmHg) O2 Sat by Pulse 95 Oximetry Oxygen Devices in Use Now: None Appearance: Obese, white female sitting in chair appearing in NAD Eyes: No Scleral Icterus, PERRLA Ears/Nose/Mouth/Throat: Mucous Membranes Moist Neck: NL Appearance and Movements; NL JVP Respiratory: Symmetrical Chest Expansion and Respiratory Effort, Clear to Auscultation Cardiovascular: NL Sounds; No Murmurs; No JVD, RRR Abdominal: - - abd soft, nontender, nondistended Extremities: No Clubbing, Cyanosis, - - trace edema to right LE Skin: - - patch of dry, flaking skin to right foot, consistent with psoriasis Neurological: Alert and Oriented x 3, NL Muscle Strength and Tone Result Diagrams: 04/20/19 06:12 04/19/19 06:39 Microbiology and Other Data: Microbiology 04/18/19 14:47 Gram Stain - Final Joint Fluid(Synovial) - Knee Right Skin and Soft Tissue MRSA/MSSA (PCR - Final Mrsa Negative S.aureus Negative 04/17/19 11:45 Aerobic Blood Culture - Preliminary Blood Venous No Growth Day 1 Anaerobic Blood Culture - Preliminary No Growth Day 1 04/17/19 11:56 Aerobic Blood Culture - Preliminary Blood Venous No Growth Day 1 Anaerobic Blood Culture - Preliminary No Growth Day 1 04/17/19 13:13 Anaerobic Culture - Preliminary Wound - Knee Right No Growth Day 1 04/17/19 11:30 Skin and Soft Tissue MRSA/MSSA (PCR - Final Knee Right Mrsa Negative S.aureus Negative Gram Stain - Final Wound Culture - Preliminary No Growth Day 1 Assess/Plan/Problems-Billing Assessment: 54 yof PMHx DM, hypothyroid, HLD, depression, anxiety presents s/o RTKA March 30 for washout of wound due to questionable post-operative infection. - Patient Problems (1) Infection of total right knee replacement Current Visit: Yes Status: Acute Code(s): T84.53XA - INFECT/INFLM REACTION DUE TO INTERNAL R KNEE PROSTH, INIT SNOMED Code(s): 236258819 Comment: -s/p Navio assisted RTKA with Dr. Shea; s/p washout during this hospitalization -outpatient and intraoperative cultures pending -blood culture no growth to date -gram stain with gram pos cocci, likely staph aureus, MRSA neg -d/c vanco and cefepime, changing to cefazolin -will need nursing home abx, PICC placement pending -cont pain control and bowel regimen -afebrile, leukocytosis downtrending (2) Thrombocytosis Current Visit: Yes Status: Acute Comment: -likely reactive related to infection (3) Hypothyroid Current Visit: Yes Status: Acute Code(s): E03.9 - HYPOTHYROIDISM, UNSPECIFIED SNOMED Code(s): 57227328 Comment: -Continue levothyroxine (4) Tobacco abuse Current Visit: Yes Status: Acute Code(s): Z72.0 - TOBACCO USE SNOMED Code( s): 634474717 Comment: -Nicotine patch ordered (5) Diabetes Current Visit: No Status: Acute Code(s): E11.9 - TYPE 2 DIABETES MELLITUS WITHOUT COMPLICATIONS SNOMED Code(s): 89617615 Comment: -Controlled -Continue Lispro by SS -restarting patient's home metformin (6) DVT prophylaxis Current Visit: No Status: Acute Code(s): Z29.9 - ENCOUNTER FOR PROPHYLACTIC MEASURES, UNSPECIFIED SNOMED Code(s): 601258703 Comment: -Per ortho: lovenox (7) Full code status Current Visit: No Status: Acute Code(s): Z78.9 - OTHER SPECIFIED HEALTH STATUS SNOMED Code(s): 074167523 Status and Disposition: Inpatient. Discharge when stable. PICC pending.
[2019-04-20] MEDS ORDERED: Scopolamine PATCH Remove* 1 NOTE MISC PATCH OFF SCH (11:00)
[2019-04-20] MEDS: Morphine TAB Extended Release (*) 15 MG TAB.ER PO SCH ×2 (11:07→23:07)
[2019-04-20] MEDS ORDERED: Vancomycin Trough Check NOTE FOLLOW UP ONE (15:30)
[2019-04-20] MEDS: DULoxetine DR CAP* 60 MG CAP.DR PO SCH (17:43)
[2019-04-20] MEDS: metFORMIN* 1,000 MG TAB PO SCH (17:43)
[2019-04-20] MEDS: Atorvastatin* 20 MG TAB PO SCH (17:43)
[2019-04-20] MEDS: Nicotine Patch Removal NOTE PATCH OFF SCH (21:02)
[2019-04-21] MEDS: Acetaminophen TAB* 325 MG PO SCH ×3 (00:32→11:59)
[2019-04-21] MEDS: ceFAZolin VIAL(*) 2 GM in NS 0.9% 100 ML* 100 ML IVPB SCH ×2 (01:42→10:47)
[2019-04-21] MEDS: oxyCODONE/Acetamin 5/325 MG* TAB PO PRN ×3 (01:47→15:59)
[2019-04-21] MEDS: Levothyroxine TAB* 175 MCG TAB PO SCH (05:54)
[2019-04-21 06:10] LABS: Hematocrit 40 % (35-47); Hemoglobin 13.2 g/dL (12.0-16.0); Mean Platelet Volume 6.7 fL (7.4-10.4); Platelet Count 539 10^3/uL (150-450)
[2019-04-21] MEDS: Tiotropium Brom/Olodaterol MDI INH SCH (08:34)
[2019-04-21] MEDS: metFORMIN* 1,000 MG TAB PO SCH (08:48)
[2019-04-21] MEDS: Docusate CAP* 100 MG PO SCH (08:48)
[2019-04-21] MEDS: busPIRone TAB* 5 MG PO SCH (08:48)
[2019-04-21] MEDS: Nicotine PATCH 14 MG/24 HR* PATCH TRANSDERM SCH (08:49)
[2019-04-21] MEDS: Magnesium Hydroxide LIQ* 30 ML UDC PO SCH (08:49)
[2019-04-21] MEDS: Enoxaparin(*) 40 MG/0.4 ML SYR SUBCUT SCH (08:49)
[2019-04-21] MEDS: Nystatin TOP POWDER* 15 GM BTL TOPICAL SCH ×2 (08:50→14:33)
[2019-04-21] MEDS: Insulin LISPRO* 1 UNITS UNIT SUBCUT SCH ×2 (09:20→12:00)
[2019-04-21] MEDS: Morphine TAB Extended Release (*) 15 MG TAB.ER PO SCH (10:47)
[2019-04-21] MEDS: Cyclobenzaprine TAB* 10 MG PO PRN (11:59)
[2019-04-21] MEDS ORDERED: Vancomycin(*) 1,000 MG in NS 0.9% 250 ML* 250 ML IVPB ONE (14:27)
--- NOTE | 2019-04-21 14:32 | PN ---
Progress Note - Progress Note Date of Service: 04/21/19 SOAP: Subjective: []Patient seen at bedside, family present. She is tolerating knee pain. She feels better as compared to before wash out. Denies fever or chills, nausea or vomiting. She hopes to go home today. Waiting on finalization of antibiotic regimen despite negative cultures. Probable Vanco. Objective: [] Vital Signs Temp 98.4 F 04/21/19 11:53 Pulse 93 04/21/19 11:53 Resp 18 04/21/19 11:59 BP 128/67 04/21/19 11:53 Pulse Ox 96 04/21/19 11:53 Intake & Output 04/20/19 04/21/19 04/21/19 18:59 06:59 18:59 Intake Total 750 1100 1084 Output Total 2900 1200 1150 Balance -2150 -100 -66 Intake: IV Fluids 300 84 ABX - CEFAZOLIN 59 ABX - VANCOMYCIN 280 LR 25 NS (0.9%) 20 IVPB 100 ABX - CEFAZOLIN 100 Oral 450 1000 1000 Output: Urine 2900 1200 1150 Other: # Bowel Movements 0 Laboratory Results - last 24 hr 04/20/19 04/20/19 04/21/19 17:41 21:00 05:50 Hgb 13.2 Hct 40 Plt Count 539 H MPV 6.7 L POC Glucose (mg/dL) 175 H 235 H 04/21/19 04/21/19 08:48 11:53 Hgb Hct Plt Count MPV POC Glucose (mg/dL) 159 H 164 H Right knee dressings changed, scant bloody drainage on dressings, no active drainage. Erythema is much improved. calf non tender +Df right knee sensation and circulation intact distally Assessment: []s/p Open washout infected right total knee hematoma and tibial pin sites POD # 3 Plan: []WBAT RLE IV antibiotics- probable Vanco May shower Follow up with Dr. Shea next Saturday 04/28
[2019-04-21] MEDS: Vancomycin(*) 1,000 MG in NS 0.9% 250 ML* 250 ML IVPB SCH (14:43)
[2019-04-21 15:16] VITALS: BP 129/62
--- NOTE | 2019-04-21 22:47 | DS ---
Amended report to enter cosigning physician. CC: Dr. Benavidez; Dr. Joey Velasco; Dr. Aliza Shea* MEDICINE DISCHARGE SUMMARY: DATE OF ADMISSION: 04/17/19 DATE OF DISCHARGE: 04/21/19 PROVIDER: Denisa Vicente NP. ATTENDING PHYSICIAN: Dr. Gisella Dorado* (dictated by Denisa Vicente NP). PRIMARY CARE PROVIDER: Dr. Benavidez. CONSULTING ORTHOPEDIST: Dr. Aliza Shea. CONSULTING INFECTIOUS DISEASE SPECIALIST: Dr. Joey Velasco. PRIMARY DISCHARGE DIAGNOSIS: Postoperative infection, status post open incision and drainage and washout of the right total knee and pin site. SECONDARY DISCHARGE DIAGNOSES: 1. Diabetes mellitus. 2. Hypothyroidism. 3. Hyperlipidemia. 4. Depression. 5. Anxiety. 6. Tobacco abuse. HOME MEDICATIONS AT DISCHARGE: 1. Percocet 2 tabs q.4 hours p.r.n. 2. BuSpar 5 mg b.i.d. 3. Anoro Ellipta 1 inhalation q.a.m. 4. Simvastatin 40 mg daily. 5. Scopolamine 1.5 mg patch q.72 hours p.r.n. 6. Morphine ER 50 mg q.12 hours. 7. Levothyroxine 175 mcg q.a.m. 8. Bydureon 2 mg subcu weekly. 9. Synjardy 01/1000 mg 1 tab b.i.d. 10. Docusate 100 mg b.i.d. 11. Duloxetine DR 60 mg daily. 12. Apixaban 2.5 mg q.12 hours x30 days. 13. Acetaminophen 1000 mg q.6 hours p.r.n. 14. Flexeril 10 mg t.i.d. p.r.n. HOSPITAL COURSE OF STAY: For full details, please refer to the H and P provided by YOON Roque on 04/17/19. In summary, Ms. Dahl is a 54- year-old female, who is status post a NAVIO-assisted right total knee on . She was seen in followup by Dr. Shea and had her sutures removed, and there was concern for purulent drainage coming from the incision site over the tibia. She was treated for presumed cellulitis to the extremity on 04/05/19 with Augmentin. She was admitted on 04/17/19; cultures were obtained, and she was started on vancomycin. She was seen in consultation by ID as she is status post surgical washout of the joint. Cultures have resulted and negative for MRSA. There was gram-positive growth. She continued to receive vancomycin here in the hospital and was briefly changed to cefazolin, then it was felt that the patient should continue on vancomycin in the outpatient setting by ID and was switched back to vancomycin prior to discharge. She received a dose before leaving and will be followed by [facility] for wound and nursing care as well as PICC management. Her vancomycin will be received through [facility]. Ms. Dahl reports improved pain control and symptoms and was eager to go home today. She denies any specific concerns other than willing to go home and has been given information for the home nursing and home infusion services. DISCHARGE PHYSICAL EXAMINATION: Vital signs: Temperature 98.1, heart rate 87, respiratory rate 16, blood pressure 129/62, and O2 saturation 96% on room air. General: This is a middle aged female, seen sitting up in bed, in no acute distress. HEENT: Head atraumatic. Pupils are equal and round. Extraocular movements are intact. Oral mucosa is moist. Neck is supple. Respiratory: Lungs are clear to auscultation. Cardiac: Normal S1, S2. Heart sounds are regular rate and rhythm. Abdomen is soft, nontender, nondistended. Normoactive bowel sounds. Extremities: Without clubbing or cyanosis. There is trace edema to the right lower extremity below the knee. Distal pulses are present. Sensation is intact. Skin: Without rash or ulceration. Neuro: She is alert and oriented x3. OUTPATIENT FOLLOWUP NEEDS: She should follow up with Dr. Shea in 1 week and needs to follow up with Dr. Velasco on Wednesday05/03/19. She should also follow up with her PCP. Melodie will need IV antibiotics with vancomycin and should have a weekly CBC, CMP , CRP, and vancomycin trough. Trough may be ordered more frequently depending on the trough levels and per the direction of Infectious Disease. The PICC line should be managed per agency protocol and she will be receiving PICC line care through [facility] [place]. Vancomycin will be distributed by [facility]. DIET: Consistent carbohydrate diet. ACTIVITY: As tolerated. CONDITION: Stable. DISPOSITION: To home with home nursing and infusion services. TIME SPENT: Approximately 40 minutes was spent on this discharge. Again, this is only a brief summary of the patient's hospital course of stay. For full details, please refer to the full medical record. If you have any further questions or need further assistance, please feel free to contact me at . DENISA VICENTE NP [id number]/CPS #: [id number] NILESH
== END 2019-04-21 17:10 | disposition home health service (06) | DRG 486 ==
LOC: SSU 10:32 → OBSVTOIN 12:36 → SSU 04-18 17:11
PROVIDERS: ADMIT Internal Medicine; ATTEND Orthopaedic Surgery Adult Reconstructive Orthopaedic Surgery
PROC: 0SUV09Z Supplement Right Knee Joint, Tibial Surface with Liner, Open Approach (ICD-10-PCS; 2019-04-18)
PROC: 0QBG0ZZ Excision of Right Tibia, Open Approach (ICD-10-PCS; 2019-04-18)
PROC: 0SPC09Z Removal of Liner from Right Knee Joint, Open Approach (ICD-10-PCS; principal; 2019-04-18 14:15)
PROC: 02HV33Z Insertion of Infusion Device into Superior Vena Cava, Percutaneous Approach (ICD-10-PCS; 2019-04-20)
DX: T84.53XA Infection and inflammatory reaction due to internal right knee prosthesis, initial encounter (principal); Y79.2 Prosthetic and other implants, materials and accessory orthopedic devices associated with adverse incidents; E11.9 Type 2 diabetes mellitus without complications; E78.5 Hyperlipidemia, unspecified; F32.9 Major depressive disorder, single episode, unspecified; F41.9 Anxiety disorder, unspecified; E78.00 Pure hypercholesterolemia, unspecified; E89.0 Postprocedural hypothyroidism; F17.210 Nicotine dependence, cigarettes, uncomplicated; E66.9 Obesity, unspecified; D47.3 Essential (hemorrhagic) thrombocythemia; J44.9 Chronic obstructive pulmonary disease, unspecified; Z68.41 Body mass index [BMI] 40.0-44.9, adult; Y92.9 Unspecified place or not applicable; Z79.891 Long term (current) use of opiate analgesic; Z90.49 Acquired absence of other specified parts of digestive tract; Z88.8 Allergy status to other drugs, medicaments and biological substances; Z88.5 Allergy status to narcotic agent; Z83.3 Family history of diabetes mellitus; Z82.49 Family history of ischemic heart disease and other diseases of the circulatory system; Z82.3 Family history of stroke; Z82.61 Family history of arthritis; Z91.030 Bee allergy status; Z85.850 Personal history of malignant neoplasm of thyroid; Z90.710 Acquired absence of both cervix and uterus
CPT/HCPCS: 36415; 80048; 80202; 85014; 85018; 85025; 85027; 85049; 85610; 85652; 86140; 86850; 86900; 86901; 87040; 87070; 87073; 87102; 87116; 87205; 87206; 87640; 87641; 88300; 94640; 99406; A9270-GY; C1751; C1776; G8978-GP-CJ; G8979-GP-CI; J0690; J0692; J1170; J1650; J2250; J2270; J2405; J2704; J2795; J3010; J3370; J3535

== ENCOUNTER 2020-10-10 08:28 | Observation (INO) ==
[~2020-10-10 08:28] MED LIST changes: -Amoxicillin/Clavulanate TAB* 875 MG PO ONE; +Buffered Lidocaine 1% SYRIN 1 ml INTRADERM ONE; +Lactated Ringers 1000 ml BAG 1,000 ML IV SCH
[2020-10-10] MEDS ORDERED: ceFAZolin 2 GM PREMIX 2 GM/50 ML BAG ONE (08:48)
[2020-10-10] MEDS ORDERED: Ondansetron 4 mg VIAL 2 MG/ML 2 ml VIAL ONE (09:17)
[2020-10-10] MEDS ORDERED: Propofol 10 MG/ML 20 ML BTL ONE ×3 (09:17→13:30)
[2020-10-10] MEDS ORDERED: Midazolam 2 mg/2 ml VIAL 1 mg/ml 2 ml VIAL (2 mg) ONE (09:17)
[2020-10-10] MEDS ORDERED: ROPIVACAINE 5 MG/ML 30 ML BTL (0.5%) ONE ×2 (10:25→10:46)
[2020-10-10] MEDS ORDERED: fentaNYL 100 mcg/2 ml 50 MCG/ML VIAL ONE (11:37)
[2020-10-10] MEDS ORDERED: Phenylephrine IV 10 MG/ML 1 ml VIAL ONE (12:07)
[2020-10-10] MEDS ORDERED: Lactulose 30 ml UDC PO PRN (13:11)
[2020-10-10] MEDS ORDERED: Morphine 2 MG/ML SYRINGE IV PRN (13:11)
[2020-10-10] MEDS ORDERED: Ondansetron 4 mg VIAL 2 MG/ML 2 ml VIAL IV PRN ×2 (13:11→13:19)
[2020-10-10] MEDS ORDERED: Magnesium Hydroxide LIQ 30 ML UDC PO PRN (13:11)
[2020-10-10] MEDS ORDERED: Ondansetron ODT 4 mg TAB 4 MG TAB PO PRN (13:11)
[2020-10-10] MEDS ORDERED: diPHENhydraMINE IV 50 MG/ML 1 ml VIAL (BENADRYL) IV PRN ×2 (13:11→13:19)
[2020-10-10] MEDS ORDERED: diPHENhydraMINE 25 mg TAB PO PRN (13:11)
[2020-10-10] MEDS ORDERED: HYDROmorphone 1 MG/1 ML SYRINGE IV PRN (13:19)
[2020-10-10] MEDS ORDERED: Naloxone 0.4 mg VIAL 0.4 mg/ml 1 ml VIAL IV PRN (13:19)
[2020-10-10] MEDS ORDERED: Dextrose 50% Syringe 50 ml 25 GM/50 ML SYRINGE IV PUSH PRN (15:40)
[2020-10-10] MEDS: Lactated Ringers 1000 ml BAG 1,000 ML IV SCH (16:00)
[2020-10-10] MEDS ORDERED: DULoxetine DR 60 mg CAP PO SCH (18:00)
[2020-10-10] MEDS: ceFAZolin 1 GM ADVAN 1 GM in NS 0.9% 50 ML 50 ML IVPB SCH (19:39)
[2020-10-10] MEDS ORDERED: EMPAGLIFLOZIN METFORMIN PO SCH (21:00)
[2020-10-10] MEDS: Magnesium Hydroxide LIQ 30 ML UDC PO SCH (21:43)
[2020-10-11] MEDS: ceFAZolin 1 GM ADVAN 1 GM in NS 0.9% 50 ML 50 ML IVPB SCH ×2 (03:54→12:32)
[2020-10-11] MEDS: Lactated Ringers 1000 ml BAG 1,000 ML IV SCH (03:54)
[2020-10-11 06:01] LABS: Hematocrit 45 % (35-47); Hemoglobin 15.6 g/dL (12.0-16.0); Mean Platelet Volume 7.9 fL (7.4-10.4); Platelet Count 240 10^3/uL (150-450)
[2020-10-11 06:21] LABS: BUN/Creatinine Ratio 20.6 (8-20); Calcium 8.6 mg/dL (8.6-10.3); EGFR African American 109.5 (>60); EGFR Non-African American 90.5 (>60); Potassium 4.3 mmol/L (3.5-5.0)
[2020-10-11] MEDS ORDERED: SEMAGLUTIDE 7 MG PO SCH (09:00)
[2020-10-11] MEDS ORDERED: SPIRIVA Respimat (tiotropium) 2.5 mcg/inh Inhaler INH SCH (09:00)
[2020-10-11] MEDS ORDERED: Vitamin THERAPEUTIC TAB PO SCH (09:00)
[2020-10-11] MEDS: Magnesium Hydroxide LIQ 30 ML UDC PO SCH (09:04)
[2020-10-11 11:19] VITALS: BP 122/50
== END 2020-10-11 13:10 | disposition home or self-care (01) ==
LOC: OR 08:28 → SSU 08:28 → EDSTATUS 15:15
PROVIDERS: ADMIT Orthopaedic Surgery Adult Reconstructive Orthopaedic Surgery; ATTEND Orthopaedic Surgery Adult Reconstructive Orthopaedic Surgery

== ENCOUNTER 2020-12-16 12:37 | Inpatient (IN) ==
[2020-12-16] MEDS ORDERED: Dextrose 50% Syringe 50 ml 25 GM/50 ML SYRINGE IV PUSH PRN (16:19)
[2020-12-16] MEDS ORDERED: Nicotine PATCH 14 MG/24 HR PATCH TRANSDERM ONE (17:18)
[2020-12-16] MEDS ORDERED: Nicotine GUM 2MG FRUIT FLAVOR PO PRN (19:00)
[2020-12-16] MEDS: Morphine 2 MG/ML SYRINGE IV PRN (20:44)
[2020-12-16] MEDS: DULoxetine DR 60 mg CAP PO SCH (20:51)
[2020-12-16] MEDS ORDERED: Heparin 5000 UNITS/ML 1 mL VIAL SUBCUT SCH (22:00)
[2020-12-17] MEDS: Morphine 2 MG/ML SYRINGE IV PRN ×4 (00:03→13:28)
[2020-12-17 05:26] LABS: Hematocrit 49 % (35-47); Hemoglobin 16.5 g/dL (12.0-16.0); Mean Corpuscular HGB Conc 34 g/dL (31-36); Mean Corpuscular Hemoglobin 31 pg (27-31); Mean Corpuscular Volume 92 fL (80-97); Mean Platelet Volume 7.4 fL (7.4-10.4); Platelet Count 305 10^3/uL (150-450); Red Blood Count 5.35 10^6 /uL (3.70-4.87); Red Cell Distribution Width 14 % (10-15); White Blood Count 9.3 10^3/uL (3.5-10.8)
[2020-12-17 05:36] LABS: INR 1.03 (0.82-1.09)
[2020-12-17 05:47] LABS: Potassium 4.3 mmol/L (3.5-5.0)
[2020-12-17 05:48] LABS: BUN/Creatinine Ratio 20.3 (8-20); EGFR African American 107.7 (>60)
[2020-12-17] MEDS: Tiotropium Brom/Olodaterol MDI INH SCH (07:28)
[2020-12-17] MEDS: Nicotine PATCH 21 MG/24 HR PATCH TRANSDERM SCH (09:41)
[2020-12-17] MEDS ORDERED: ceFAZolin 2 GM PREMIX 2 GM/50 ML BAG ONE (15:26)
[2020-12-17] MEDS ORDERED: Midazolam 5 mg/5 ml VIAL 1 mg/ml 5 ml VIAL (5 mg) ONE (16:45)
[2020-12-17] MEDS ORDERED: fentaNYL 100 mcg/2 ml 50 MCG/ML VIAL ONE (16:45)
[2020-12-17] MEDS ORDERED: Ketamine HCL 50 mg/ml 10 ml VIAL (500 MG) ONE (16:45)
[2020-12-17] MEDS ORDERED: Ondansetron 4 mg VIAL 2 MG/ML 2 ml VIAL ONE (16:45)
[2020-12-17] MEDS ORDERED: ROPIVACAINE 5 MG/ML 30 ML BTL (0.5%) ONE (16:45)
[2020-12-17] MEDS ORDERED: Dexamethasone IV 4 MG/ML VIAL 1 ml VIAL ONE (16:45)
[2020-12-17] MEDS ORDERED: Propofol 10 MG/ML 20 ML BTL ONE ×2 (16:45→18:53)
[2020-12-17] MEDS ORDERED: Lidocaine 2% PF 5 ML VIAL ONE (16:45)
[2020-12-17] MEDS ORDERED: Phenylephrine 40 mcg/mL 10mL (400mcg) SYRINGE ONE (18:45)
[2020-12-17] MEDS ORDERED: fentaNYL 100 mcg/2 ml 50 MCG/ML VIAL IV PRN (19:50)
[2020-12-17] MEDS ORDERED: Naloxone 0.4 mg VIAL 0.4 mg/ml 1 ml VIAL IV PRN (19:50)
[2020-12-17] MEDS ORDERED: Ondansetron 4 mg VIAL 2 MG/ML 2 ml VIAL IV PRN (19:50)
[2020-12-17] MEDS: DULoxetine DR 60 mg CAP PO SCH (22:04)
[2020-12-18] MEDS: Morphine 2 MG/ML SYRINGE IV PRN ×3 (01:17→11:28)
[2020-12-18] MEDS: ceFAZolin 1 GM X 3 DOSES POST-OP Q8H (AddVan) IVPB SCH ×2 (02:08→11:18)
[2020-12-18 06:34] LABS: ABS Basophils 0.1 10^3/ul (0-0.2); ABS Eosinophils 0.1 10^3/ul (0-0.6); ABS Lymphocytes 2.1 10^3/ul (1.0-4.8); ABS Monocytes 0.7 10^3/ul (0-0.8); ABS Neutrophils 11.1 10^3/ul (1.5-7.7); Eosinophil % 0.9 %; Hematocrit 49 % (35-47); Hemoglobin 16.3 g/dL (12.0-16.0); Lymphocyte % 14.8 %; Mean Corpuscular HGB Conc 33 g/dL (31-36); Mean Corpuscular Hemoglobin 31 pg (27-31); Mean Corpuscular Volume 92 fL (80-97); Mean Platelet Volume 7.6 fL (7.4-10.4); Platelet Count 284 10^3/uL (150-450); Red Blood Count 5.31 10^6 /uL (3.70-4.87); Red Cell Distribution Width 14 % (10-15); White Blood Count 14.1 10^3/uL (3.5-10.8)
[2020-12-18 06:59] LABS: BUN/Creatinine Ratio 26.9 (8-20); Calcium 8.8 mg/dL (8.6-10.3); EGFR African American 93.5 (>60); EGFR Non-African American 77.3 (>60); Potassium 4.5 mmol/L (3.5-5.0)
[2020-12-18] MEDS: Tiotropium Brom/Olodaterol MDI INH SCH (08:30)
[2020-12-18] MEDS ORDERED: Aspirin EC 81 mg TAB.EC (enteric coated) PO SCH (09:00)
[2020-12-18] MEDS: Nicotine PATCH 21 MG/24 HR PATCH TRANSDERM SCH (09:40)
[2020-12-18 11:12] VITALS: BP 115/61
== END 2020-12-18 14:42 | disposition home or self-care (01) ==
LOC: ED 12:37 → SSU 17:51
PROVIDERS: ADMIT Internal Medicine; ATTEND Orthopaedic Surgery Adult Reconstructive Orthopaedic Surgery